=== PATIENT | female | born 1980 | race Caucasian/White ===

== ENCOUNTER 2017-08-24 09:17 | Emergency (ER) | payer OTHER ==
[2017-08-24 09:34] LABS: URINE HCG POC HCG NEGATIVE (Negative)
[2017-08-24 09:50] LABS: ADD MAN DIFF? NO
[2017-08-24 09:52] LABS: BASO # 0.1 x10^3/uL (0.0-0.2); BASO % 1 % (0-3); BILIRUBIN,URINE NEGATIVE (NEG); CLARITY,URINE CLEAR; COLOR,URINE YELLOW; EOS # 0.1 x10^3/uL (0.0-0.7); EOS % 1 % (0-3); GLUCOSE,URINE NEGATIVE (NEG); HEMATOCRIT 43.2 % (36.0-47.0); HEMOGLOBIN 14.2 g/dL (12.0-15.5); LYMPH # 1.9 x10^3/uL (1.0-4.8); LYMPH % 23 % (24-48); MEAN CORPUSCULAR HEMOGLOBIN 28 pg (25-35); MEAN CORPUSCULAR HGB CONC 33 g/dL (31-37); MEAN CORPUSCULAR VOLUME 84 fL (79-100); MONO # 0.4 x10^3/uL (0.0-1.1); MONO % 5 % (0-9); NEUT # 5.7 x10^3uL (1.8-7.7); NEUT % 70 % (31-73); NITRITE,URINE NEGATIVE (NEG); PH,URINE 6.5; PLATELET COUNT 355 x10^3/uL (140-400); PROTEIN,URINE NEGATIVE (NEG-TRACE); RED BLOOD COUNT 5.16 x10^6/uL (3.50-5.40); RED CELL DISTRIBUTION WIDTH 14.3 % (11.5-14.5); UROBILINOGEN,URINE 0.2 mg/dL (0.2 mg/dL); WHITE BLOOD COUNT 8.2 x10^3/uL (4.0-11.0)
[2017-08-24 10:01] LABS: ANION GAP 7 (6-14); BLOOD UREA NITROGEN 13 mg/dL (7-20); BUN/CREATININE RATIO 12 (6-20); CALCIUM 9.7 mg/dL (8.5-10.1); CARBON DIOXIDE 30 mmol/L (21-32); CHLORIDE 102 mmol/L (98-107); CREATININE 1.1 mg/dL (0.6-1.0); GFR 55.6; GLUCOSE 103 mg/dL (70-99); POTASSIUM 3.6 mmol/L (3.5-5.1); SODIUM 139 mmol/L (136-145)
[2017-08-24] MEDS: ONDANSETRON PF 4 MG/2 ML VIAL. IV (10:09)
[2017-08-24] MEDS: KETOROLAC 30 MG/ML INJ. IV (10:09)
[2017-08-24 10:12] LABS: ALK PHOS 80 U/L (46-116); ALT (SGPT) 29 U/L (14-59); AST (SGOT) 16 U/L (15-37); LIPASE 95 U/L (73-393); TOTAL BILIRUBIN 0.7 mg/dL (0.2-1.0); TOTAL PROTEIN 8.2 g/dL (6.4-8.2)
[2017-08-24 10:13] LABS: SQUAMOUS EPITHELIAL CELL,UR MOD /LPF
[2017-08-24 10:21] LABS: BACTERIA,URINE 0 /HPF (0-FEW); RBC,URINE 0 /HPF (0-2); WBC,URINE OCC /HPF (0-4)
== END 2017-08-24 11:15 | disposition home or self-care (01) ==
LOC: ER 09:17
DX: R10.11 Right upper quadrant pain (principal); R11.2 Nausea with vomiting, unspecified; R19.7 Diarrhea, unspecified; K21.9 Gastro-esophageal reflux disease without esophagitis; Z90.49 Acquired absence of other specified parts of digestive tract; Z90.711 Acquired absence of uterus with remaining cervical stump; Z88.5 Allergy status to narcotic agent
CPT/HCPCS: 36415; 74176; 80053; 81001; 81025; 83690; 85025; 96374; 96375; 99285-25; J1885; J2405

== ENCOUNTER 2017-08-30 11:37 | Inpatient (IN) | payer OTHER ==
[2017-08-30] MEDS: ONDANSETRON PF 4 MG/2 ML VIAL. IV ×2 (12:30→15:56)
[2017-08-30 12:33] LABS: ADD MAN DIFF? NO
[2017-08-30 12:36] LABS: BASO % 1 % (0-3); EOS # 0.1 x10^3/uL (0.0-0.7); EOS % 1 % (0-3); HEMATOCRIT 41.9 % (36.0-47.0); HEMOGLOBIN 13.9 g/dL (12.0-15.5); LYMPH # 1.8 x10^3/uL (1.0-4.8); LYMPH % 30 % (24-48); MEAN CORPUSCULAR HEMOGLOBIN 28 pg (25-35); MEAN CORPUSCULAR HGB CONC 33 g/dL (31-37); MEAN CORPUSCULAR VOLUME 84 fL (79-100); MONO # 0.4 x10^3/uL (0.0-1.1); MONO % 7 % (0-9); NEUT # 3.7 x10^3uL (1.8-7.7); NEUT % 61 % (31-73); PLATELET COUNT 335 x10^3/uL (140-400); RED BLOOD COUNT 5.01 x10^6/uL (3.50-5.40); RED CELL DISTRIBUTION WIDTH 14.5 % (11.5-14.5); WHITE BLOOD COUNT 6.1 x10^3/uL (4.0-11.0)
[2017-08-30 12:38] LABS: BILIRUBIN,URINE NEGATIVE (NEG); CLARITY,URINE CLEAR; COLOR,URINE YELLOW; GLUCOSE,URINE NEGATIVE (NEG); NITRITE,URINE NEGATIVE (NEG); PROTEIN,URINE NEGATIVE (NEG-TRACE); UROBILINOGEN,URINE 0.2 mg/dL (0.2 mg/dL)
[2017-08-30 12:44] LABS: ANION GAP 10 (6-14); BLOOD UREA NITROGEN 11 mg/dL (7-20); BUN/CREATININE RATIO 10 (6-20); CALCIUM 9.6 mg/dL (8.5-10.1); CARBON DIOXIDE 30 mmol/L (21-32); CHLORIDE 102 mmol/L (98-107); CREATININE 1.1 mg/dL (0.6-1.0); GFR 55.6; GLUCOSE 102 mg/dL (70-99); POTASSIUM 4.1 mmol/L (3.5-5.1); SODIUM 142 mmol/L (136-145)
[2017-08-30 12:50] LABS: ALBUMIN 3.8 g/dL (3.4-5.0); ALK PHOS 73 U/L (46-116); ALT (SGPT) 27 U/L (14-59); AST (SGOT) 16 U/L (15-37); LIPASE 95 U/L (73-393); TOTAL BILIRUBIN 0.4 mg/dL (0.2-1.0); TOTAL PROTEIN 7.7 g/dL (6.4-8.2)
[2017-08-30 13:03] LABS: BACTERIA,URINE FEW /HPF (0-FEW); RBC,URINE RARE /HPF (0-2); SQUAMOUS EPITHELIAL CELL,UR MOD /LPF; WBC,URINE 0 /HPF (0-4)
[2017-08-30] MEDS: IV NORMAL SALINE 1000ML BAG 1,000 ML IV ×2 (13:06→16:02)
[2017-08-30] MEDS: HALOPERIDOL LACTATE 5 MG/ML VIAL. IVP (13:06)
[2017-08-30] MEDS: FAMOTIDINE 20 MG/2 ML VIAL IVP (13:06)
[2017-08-30] MEDS: diphenhydrAMINE 50 MG/ML VIAL IVP (13:07)
[2017-08-30] MEDS ORDERED: ACETAMINOPHEN 325 MG TABLET. PO (14:30)
[2017-08-30] MEDS: PANTOPRAZOLE 40 MG TABLET.DR. PO (15:56)
[2017-08-30] MEDS: fentaNYL PF VIAL 100 MCG/2 ML VIAL IV ×3 (15:57→22:42)
[2017-08-30] MEDS: DICYCLOMINE HCL 10 MG CAPSULE PO (17:38)
[2017-08-30] MEDS: oxyCODONE/APAP 5/325 1 TAB TABLET PO ×2 (17:38→22:43)
[2017-08-30] MEDS: tiZANidine 4 MG TABLET. PO (19:34)
[2017-08-30] MEDS ORDERED: NON FORMULARY ITEM (Melatonin 1 TAB) PO (21:00)
[2017-08-30] MEDS: POLYETHYLENE GLYCOL 3350 17 GM PACKET. PO (21:00)
[2017-08-30] MEDS: traZODone 50 MG TABLET. PO (22:43)
[2017-08-31] MEDS: IV NORMAL SALINE 1000ML BAG 1,000 ML IV ×2 (03:33→16:34)
[2017-08-31 06:00] LABS: ADD MAN DIFF? NO
[2017-08-31 06:10] LABS: BASO % 1 % (0-3); EOS # 0.1 x10^3/uL (0.0-0.7); EOS % 2 % (0-3); HEMATOCRIT 38.5 % (36.0-47.0); HEMOGLOBIN 12.6 g/dL (12.0-15.5); LYMPH # 2.2 x10^3/uL (1.0-4.8); LYMPH % 42 % (24-48); MEAN CORPUSCULAR HEMOGLOBIN 28 pg (25-35); MEAN CORPUSCULAR HGB CONC 33 g/dL (31-37); MEAN CORPUSCULAR VOLUME 84 fL (79-100); MONO # 0.5 x10^3/uL (0.0-1.1); MONO % 9 % (0-9); NEUT # 2.4 x10^3uL (1.8-7.7); NEUT % 46 % (31-73); PLATELET COUNT 269 x10^3/uL (140-400); RED BLOOD COUNT 4.57 x10^6/uL (3.50-5.40); RED CELL DISTRIBUTION WIDTH 14.7 % (11.5-14.5); WHITE BLOOD COUNT 5.3 x10^3/uL (4.0-11.0)
[2017-08-31 06:26] LABS: ANION GAP 6 (6-14); BLOOD UREA NITROGEN 9 mg/dL (7-20); CALCIUM 8.7 mg/dL (8.5-10.1); CARBON DIOXIDE 30 mmol/L (21-32); CHLORIDE 107 mmol/L (98-107); CREATININE 1.1 mg/dL (0.6-1.0); GFR 55.6; GLUCOSE 90 mg/dL (70-99); SODIUM 143 mmol/L (136-145)
[2017-08-31] MEDS: fentaNYL PF VIAL 100 MCG/2 ML VIAL IV ×3 (07:48→22:50)
[2017-08-31] MEDS: SINCALIDE 1.72 MCG in IV NORMAL SALINE 50ML 30 ML IV (08:15)
[2017-08-31] MEDS ORDERED: ONDANSETRON PF 4 MG/2 ML VIAL. IV (08:30)
[2017-08-31] MEDS ORDERED: ACETAMINOPHEN 500 MG TABLET PO (08:30)
[2017-08-31] MEDS: POLYETHYLENE GLYCOL 3350 17 GM PACKET. PO ×2 (09:00→20:51)
[2017-08-31] MEDS: PANTOPRAZOLE 40 MG TABLET.DR. PO (10:24)
[2017-08-31] MEDS: SERTRALINE 50 MG TABLET. PO (10:24)
[2017-08-31] MEDS: oxyCODONE/APAP 5/325 1 TAB TABLET PO ×3 (10:34→20:50)
[2017-08-31] MEDS: DICYCLOMINE HCL 10 MG CAPSULE PO ×2 (13:23→20:50)
[2017-08-31] MEDS: traZODone 50 MG TABLET. PO (20:50)
[2017-08-31] MEDS: tiZANidine 4 MG TABLET. PO (22:28)
[2017-09-01] MEDS: fentaNYL PF VIAL 100 MCG/2 ML VIAL IV ×9 (05:29→23:15)
[2017-09-01] MEDS: PANTOPRAZOLE 40 MG TABLET.DR. PO (07:30)
[2017-09-01] MEDS: SERTRALINE 50 MG TABLET. PO (09:00)
[2017-09-01] MEDS: POLYETHYLENE GLYCOL 3350 17 GM PACKET. PO ×2 (09:00→21:00)
[2017-09-01] MEDS ORDERED: LIDOCAINE 1% PF 2 ML VIAL. ID (11:30)
[2017-09-01] MEDS ORDERED: fentaNYL PF VIAL 100 MCG/2 ML VIAL IV (11:30)
[2017-09-01] MEDS ORDERED: ONDANSETRON PF 4 MG/2 ML VIAL. IV ×2 (11:30→14:45)
[2017-09-01] MEDS ORDERED: GLUCAGON,HUMAN RECOMBINANT 1 MG/ML VIAL. (12:14)
[2017-09-01] MEDS ORDERED: SURGICEL HEMOSTAT 4X8 EACH. (12:14)
[2017-09-01] MEDS ORDERED: PROPOFOL 20 ML IV (12:25)
[2017-09-01] MEDS ORDERED: ROCURONIUM 50 MG/5 ML VIAL. (12:25)
[2017-09-01] MEDS ORDERED: DEXAMETHASONE SOD PHOS 20 MG/5 ML VIAL. (12:26)
[2017-09-01] MEDS ORDERED: ONDANSETRON PF 4 MG/2 ML VIAL. (12:26)
[2017-09-01] MEDS ORDERED: NEOSTIGMINE 10 MG/10 ML VIAL. (12:26)
[2017-09-01] MEDS ORDERED: fentaNYL PF VIAL 100 MCG/2 ML VIAL ×2 (12:27→13:53)
[2017-09-01] MEDS ORDERED: GLYCOPYRROLATE 1 MG/5 ML VIAL. (12:27)
[2017-09-01] MEDS ORDERED: MIDAZOLAM HCL/PF 2 MG/2 ML VIAL. (12:28)
[2017-09-01] MEDS: BUPIVAC MPF-EPI 0.5%-1:200000 30 ML VIAL. INJ (13:44)
[2017-09-01] MEDS: IOHEXOL 300 MG/ML 100ML VIAL. (13:44)
[2017-09-01] MEDS ORDERED: KETOROLAC 30 MG/ML INJ FOR OR. INJ (14:23)
[2017-09-01] MEDS ORDERED: 0.9 % SODIUM CHLORIDE 10 ML DISP.SYRIN. IV (14:45)
[2017-09-01] MEDS ORDERED: MORPHINE SULFATE 2 MG/ML DISP.SYRIN. IV (14:45)
[2017-09-01] MEDS ORDERED: DEXTROSE 50% 25 GM / 50ML DISP.SYRIN. IV (14:45)
[2017-09-01] MEDS: ENOXAPARIN 40 MG/0.4 ML SYRINGE. SQ (14:45)
[2017-09-01] MEDS ORDERED: oxyCODONE/APAP 5/325 1 TAB TABLET PO (14:45)
[2017-09-01] MEDS ORDERED: diphenhydrAMINE HCL 25 MG CAPSULE PO (14:45)
[2017-09-01] MEDS ORDERED: diphenhydrAMINE 50 MG/ML VIAL IV (14:45)
[2017-09-01] MEDS: IV RINGERS,LACTATED 1000ML 1,000 ML IV (15:00)
[2017-09-01] MEDS: PROCHLORPERAZINE 10 MG/2 ML VIAL. IV ×2 (15:02→15:46)
[2017-09-01] MEDS: DOCUSATE SODIUM 100 MG CAPSULE. PO (21:00)
[2017-09-01] MEDS: traZODone 50 MG TABLET. PO (21:14)
[2017-09-01] MEDS: POTASSIUM CL 20MEQ-0.45% NACL 1,000 ML IV ×2 (21:15→21:17)
[2017-09-02] MEDS: fentaNYL PF VIAL 100 MCG/2 ML VIAL IV ×2 (01:24→06:37)
[2017-09-02] MEDS: DICYCLOMINE HCL 10 MG CAPSULE PO (01:27)
[2017-09-02] MEDS: tiZANidine 4 MG TABLET. PO (01:27)
[2017-09-02] MEDS: oxyCODONE/APAP 5/325 1 TAB TABLET PO ×2 (01:27→08:09)
[2017-09-02 06:10] LABS: ADD MAN DIFF? NO
[2017-09-02 06:29] LABS: BASO % 0 % (0-3); EOS % 0 % (0-3); HEMATOCRIT 36.1 % (36.0-47.0); HEMOGLOBIN 12.1 g/dL (12.0-15.5); LYMPH # 1.2 x10^3/uL (1.0-4.8); LYMPH % 13 % (24-48); MEAN CORPUSCULAR HEMOGLOBIN 28 pg (25-35); MEAN CORPUSCULAR HGB CONC 34 g/dL (31-37); MEAN CORPUSCULAR VOLUME 84 fL (79-100); MONO # 0.6 x10^3/uL (0.0-1.1); MONO % 7 % (0-9); NEUT # 7.6 x10^3uL (1.8-7.7); NEUT % 80 % (31-73); PLATELET COUNT 256 x10^3/uL (140-400); RED BLOOD COUNT 4.32 x10^6/uL (3.50-5.40); RED CELL DISTRIBUTION WIDTH 14.2 % (11.5-14.5); WHITE BLOOD COUNT 9.4 x10^3/uL (4.0-11.0)
[2017-09-02 06:35] LABS: ANION GAP 6 (6-14); BLOOD UREA NITROGEN 7 mg/dL (7-20); CALCIUM 9.2 mg/dL (8.5-10.1); CARBON DIOXIDE 31 mmol/L (21-32); CHLORIDE 104 mmol/L (98-107); GFR 62.1; GLUCOSE 110 mg/dL (70-99); SODIUM 141 mmol/L (136-145)
[2017-09-02] MEDS: DOCUSATE SODIUM 100 MG CAPSULE. PO (08:22)
[2017-09-02] MEDS: SERTRALINE 50 MG TABLET. PO (08:23)
[2017-09-02] MEDS: PANTOPRAZOLE 40 MG TABLET.DR. PO (08:23)
[2017-09-02] MEDS: POLYETHYLENE GLYCOL 3350 17 GM PACKET. PO (08:25)
[2017-09-02] MEDS: POTASSIUM CL 20MEQ-0.45% NACL 1,000 ML IV (10:29)
[2017-09-02] MEDS: HYDROcodone/APAP 7.5/325MG 1 TAB TABLET PO (10:37)
[2017-09-02] MEDS ORDERED: oxyCODONE/APAP 5/325 1 TAB TABLET PO (10:45)
== END 2017-09-02 12:10 | disposition home or self-care (01) | DRG 419 ==
LOC: ER 11:37 → 5 SOUTH 14:20
PROC: 0FT44ZZ Resection of Gallbladder, Percutaneous Endoscopic Approach (ICD-10-PCS; principal; 2017-09-01 12:30)
PROC: BF101ZZ Fluoroscopy of Bile Ducts using Low Osmolar Contrast (ICD-10-PCS; 2017-09-01 12:30)
DX: K82.8 Other specified diseases of gallbladder (principal); E78.5 Hyperlipidemia, unspecified; F41.9 Anxiety disorder, unspecified; G89.29 Other chronic pain; Z82.49 Family history of ischemic heart disease and other diseases of the circulatory system; Z87.11 Personal history of peptic ulcer disease; Z88.5 Allergy status to narcotic agent; K21.9 Gastro-esophageal reflux disease without esophagitis; Z90.710 Acquired absence of both cervix and uterus; Z90.721 Acquired absence of ovaries, unilateral
CPT/HCPCS: 36415; 74300; 76700; 78226; 80048; 80053; 81001; 83690; 85025; 88304; 96361; 96374; 96375; 99285-25; A9537; C1769; J0690; J0780; J1100; J1200; J1610; J1630; J1885; J2250; J2405; J2704; J2710; J2805; J3010; J3490; J7030; J7120; Q9967; S0028

== ENCOUNTER 2018-01-23 00:20 | Inpatient (IN) | payer OTHER ==
[~2018-01-23] VITALS: Ht 162.6 cm; Wt 89.4 kg
[~2018-01-23 00:20] MED LIST: DICY10CA3 PO; ESTR1TAB15 PO; HYDR-2762 PO; MELA3TAB2 PO; PANT40TA3 PO; POLY17PO29 PO; SERT100T PO; TIZA4CAP3 PO; TRAZ-85 PO
[2018-01-23] MEDS ORDERED: fentaNYL PF VIAL 100 MCG/2 ML VIAL IV ONE ×3 (01:00→03:30)
--- NOTE | 2018-01-23 01:04 | PHYS DOC ---
Past Medical History Past Medical History: Anxiety, GERD Additional Past Medical Histor: "panic attacks" Past Surgical History: Appendectomy, Hysterectomy, Tonsillectomy Additional Past Surgical Histo: PARTIAL HYSTERECTOMY FROM LARGE CYST, ECTOPIC PG Alcohol Use: Occasionally Drug Use: None Adult General Chief Complaint Chief Complaint: CHEST PAIN HPI HPI Patient is a 37 year old female who presents with chest pain. Patient states she has been having chest pain which is primarily substernal over the last 2 days. Pain has been a dull achy sensation but intermittently becomes more sharp. Pain is mostly been constant. It does not radiate. She has not identified any aggravating or alleviating factors. Of note, the patient did recently travel back from [place] when she spent 14 hours and a car. The patient does have significant family history. Her father had his first heart attack at the age of 38. She reports that he has multiple stents. She has not been ill. No fever, chills, cough. She does not have pain in the lower legs. Review of Systems Review of Systems Constitutional: Denies fever or chills Eyes: Denies change in visual acuity HENT: Denies nasal congestion Respiratory: Denies cough or shortness of breath Cardiovascular: No additional information not addressed in HPI GI: Denies abdominal pain. + some diarrhea : Denies dysuria or hematuria Musculoskeletal: Denies back pain or joint pain Integument: Denies rash or skin lesions Neurologic: Denies headache All other systems were reviewed and found to be within normal limits, except as documented in this note. Current Medications Current Medications Current Medications Medications (Trade) Dose Ordered Sig/Juaquin Start Time Stop Time Status Last Admin Dose Admin Acetaminophen (Tylenol) 650 mg PRN Q4HRS PRN 01/23/18 03:30 01/24/18 03:29 UNV Diphenhydramine HCl (Benadryl) 25 mg 1X ONCE 01/23/18 02:15 01/23/18 02:57 DC 01/23/18 02:15 25 MG Fentanyl Citrate (Fentanyl 2ml Vial) 75 mcg PRN Q2HR PRN 01/23/18 03:30 01/24/18 03:29 UNV Info (CONTRAST GIVEN -- Rx MONITORING) 1 each PRN DAILY PRN 01/23/18 02:15 01/25/18 02:14 Iohexol (Omnipaque 300 Mg/ml) 75 ml 1X ONCE 01/23/18 02:15 01/23/18 02:16 DC Ketorolac Tromethamine (Toradol) 30 mg 1X ONCE 01/23/18 03:15 01/23/18 03:16 DC 01/23/18 03:13 30 MG Ondansetron HCl (Zofran) 4 mg PRN Q8HRS PRN 01/23/18 03:30 01/24/18 03:29 UNV Oxycodone HCl (Roxicodone) 10 mg Q6H PRN 01/23/18 03:45 UNV Sodium Chloride 1,000 ml @ 1,000 mls/hr 1X ONCE 01/23/18 01:30 01/23/18 02:29 DC 01/23/18 01:30 1,000 MLS/HR Allergies Allergies Allergies Coded Allergies Type Severity Reaction Last Updated Verified morphine Allergy Severe Shortness of Air 01/25/16 Yes Physical Exam Physical Exam Constitutional: Well developed, well nourished, no acute distress, non-toxic appearance HENT: Normocephalic, atraumatic, bilateral external ears normal, oropharynx moist Eyes: PERRLA Neck: Normal range of motion, no tenderness, supple, no stridor Cardiovascular:Heart rate regular rhythm, no murmur Lungs & Thorax: Bilateral breath sounds clear to auscultation Abdomen: Bowel sounds normal, soft, no tenderness Skin: Warm, dry Extremities: No tenderness of the calf muscles. no swelling Neurologic: Alert and oriented X 3 Psychologic: Affect normal Current Patient Data Vital Signs Vital Signs Date Time Temp Pulse Resp B/P (MAP) Pulse Ox O2 Delivery O2 Flow Rate FiO2 01/23/18 03:00 62 18 103/57 (72) 97 01/23/18 00:37 98.7 Room Air 98.7 Lab Values Laboratory Tests Test 01/23/18 01:00 White Blood Count 7.3 x10^3/uL (4.0-11.0) Red Blood Count 4.85 x10^6/uL (3.50-5.40) Hemoglobin 13.5 g/dL (12.0-15.5) Hematocrit 40.2 % (36.0-47.0) Mean Corpuscular Volume 83 fL (79-100) Mean Corpuscular Hemoglobin 28 pg (25-35) Mean Corpuscular Hemoglobin Concent 34 g/dL (31-37) Red Cell Distribution Width 13.6 % (11.5-14.5) Platelet Count 336 x10^3/uL (140-400) Neutrophils (%) (Auto) 57 % (31-73) Lymphocytes (%) (Auto) 32 % (24-48) Monocytes (%) (Auto) 7 % (0-9) Eosinophils (%) (Auto) 3 % (0-3) Basophils (%) (Auto) 1 % (0-3) Neutrophils # (Auto) 4.2 x10^3uL (1.8-7.7) Lymphocytes # (Auto) 2.4 x10^3/uL (1.0-4.8) Monocytes # (Auto) 0.5 x10^3/uL (0.0-1.1) Eosinophils # (Auto) 0.2 x10^3/uL (0.0-0.7) Basophils # (Auto) 0.1 x10^3/uL (0.0-0.2) Prothrombin Time 12.5 SEC (11.7-14.0) Prothrombin Time INR 1.0 (0.8-1.1) PTT 30 SEC (24-38) D-Dimer (Luz) < 0.27 ug/mlFEU Sodium Level 138 mmol/L (136-145) Potassium Level 3.9 mmol/L (3.5-5.1) Chloride Level 102 mmol/L (98-107) Carbon Dioxide Level 30 mmol/L (21-32) Anion Gap 6 (6-14) Blood Urea Nitrogen 13 mg/dL (7-20) Creatinine 1.0 mg/dL (0.6-1.0) Estimated GFR (Cockcroft-Gault) 62.1 Glucose Level 109 mg/dL (70-99) H Calcium Level 9.2 mg/dL (8.5-10.1) Troponin I Quantitative < 0.017 ng/mL (0.000-0.055) Laboratory Tests 01/23/18 01:00 Laboratory Tests 01/23/18 01:00 EKG EKG No STEMI Interpretation Time: 00:35 Radiology/Procedures Radiology/Procedures CTA chest: no acute findings Course & Med Decision Making Course & Med Decision Making Pertinent Labs and Imaging studies reviewed. (See chart for details) 00:50: Patient is seen and examined. + significant family history. Standard ACS workup is ordered plus dimer given her recent travel history. Allergy to morphine (difficulty breathing). Fentanyl is ordered. 03:30: All results are reviewed and discussed with the patient and her significant other and all of their questions are answered. There are no acute findings on the workup tonight. Her d-dimer was not elevated. She had already gone for CT angiogram which did not reveal an acute cause for her symptoms. EKG is nonacute. Despite multiple doses of opiate pain medications, the patient continued to clutch her chest throughout the ED course. Her father suffered his first cardiac event at her current age. Her pain does not seem cardiac in nature but also was not reproducible upon palpation of the chest wall. Plan this evening is to admit the patient to rule out. Bridge orders are placed. Orders for cardiology consultation are also placed. The patient does have a history of using smokeless tobacco products. Other than her family history, she has no significant CAD risk factors. Patient is agreeable to the plan of care including admission. Chema Disclaimer Dragon Disclaimer This electronic medical record was generated, in whole or in part, using a voice recognition dictation system. Departure Departure Referrals: NO PCP (PCP) ERNESTINA IGLESIAS DO Jan 23, 2018 01:04
[2018-01-23 01:15] LABS: BASO # 0.1 x10^3/uL (0.0-0.2); BASO % 1 % (0-3); EOS # 0.2 x10^3/uL (0.0-0.7); EOS % 3 % (0-3); HEMATOCRIT 40.2 % (36.0-47.0); HEMOGLOBIN 13.5 g/dL (12.0-15.5); LYMPH # 2.4 x10^3/uL (1.0-4.8); LYMPH % 32 % (24-48); MEAN CORPUSCULAR HEMOGLOBIN 28 pg (25-35); MEAN CORPUSCULAR HGB CONC 34 g/dL (31-37); MEAN CORPUSCULAR VOLUME 83 fL (79-100); MONO # 0.5 x10^3/uL (0.0-1.1); MONO % 7 % (0-9); NEUT # 4.2 x10^3uL (1.8-7.7); NEUT % 57 % (31-73); PLATELET COUNT 336 x10^3/uL (140-400); RED BLOOD COUNT 4.85 x10^6/uL (3.50-5.40); RED CELL DISTRIBUTION WIDTH 13.6 % (11.5-14.5); WHITE BLOOD COUNT 7.3 x10^3/uL (4.0-11.0)
[2018-01-23 01:23] LABS: PARTIAL THROMBOPLASTIN TIME 30 SEC (24-38); PROTHROMBIN TIME PATIENT 12.5 SEC (11.7-14.0)
[2018-01-23 01:26] LABS: CALCIUM 9.2 mg/dL (8.5-10.1); GFR 62.1; POTASSIUM 3.9 mmol/L (3.5-5.1)
[2018-01-23] MEDS ORDERED: IV NORMAL SALINE 1000ML BAG 1,000 ML IV ONE (01:30)
[2018-01-23 01:31] LABS: D-DIMER < 0.27 ug/mlFEU (0.00-0.50)
[2018-01-23] MEDS ORDERED: diphenhydrAMINE 50 MG/ML VIAL IVP ONE ×2 (02:15→05:00)
[2018-01-23] MEDS ORDERED: CONTRAST GIVEN. MC PRN (02:15)
[2018-01-23] MEDS ORDERED: IOHEXOL 300 MG/ML 100ML VIAL. IV ONE (02:15)
[2018-01-23] MEDS ORDERED: KETOROLAC 30 MG/ML VIAL. IV ONE (03:15)
--- NOTE | 2018-01-23 03:30 | RAD ---
CTA chest with contrast 01/23/2018 Clinical indication: Chest pain. COMPARISON: CTA chest 06/15/2017 TECHNIQUE: Multiple CTA images of the chest were obtained following the intravenous and ministration of 75 mL Omnipaque 300. MIPS were obtained of the chest. *One or more of the following individualized dose reduction techniques were utilized for this examination: 1. Automated exposure control. 2. Adjustment of the mA and/or kV according to patient size. 3. Use of iterative reconstruction technique. FINDINGS: Heart size is normal without significant pericardial effusion. The thoracic aorta is normal in caliber. No central or major segmental pulmonary arterial filling defect. No axillary, mediastinal or hilar lymphadenopathy. The central airways are patent. No pleural effusion, pneumothorax or focal consolidation. There are no destructive osseous lesions. Limited images of the upper abdomen: Cholecystectomy. IMPRESSION: No CT evidence of pulmonary embolism. Electronically signed by: Laurent Gallagher MD (01/23/2018 3:26 AM) [facility]
[2018-01-23] MEDS ORDERED: ONDANSETRON PF 4 MG/2 ML VIAL. IV PRN (03:45)
[2018-01-23] MEDS ORDERED: ACETAMINOPHEN 325 MG TABLET. PO PRN (03:45)
[2018-01-23] MEDS: oxyCODONE IR 5 MG TABLET PO PRN ×3 (04:57→17:44)
--- NOTE | 2018-01-23 06:10 | EKG ---
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
[2018-01-23] MEDS ORDERED: IOHEXOL 300 MG/ML 100ML VIAL. ONE (06:46)
[2018-01-23 07:00] VITALS: BP 102/52
[2018-01-23] MEDS: fentaNYL PF VIAL 100 MCG/2 ML VIAL IV PRN ×5 (07:35→22:27)
--- NOTE | 2018-01-23 09:34 | PDOC2 ---
[facility] CONTACT C[facility] ANALYST 01/23/18 0934: CARDIAC CONSULT DATE OF CONSULT Date of Consult DATE: 01/23/18 TIME: 09:28 REASON FOR CONSULT Reason for Consult: intractable CP, family hx REFERRING PHYSICIAN Referring Physician: Isaac SOURCE Source: Chart review, Patient HISTORY OF PRESENT ILLNESS HISTORY OF PRESENT ILLNESS This is a pleasant 37 yo female admitted for complains of chest pain. Reports that she started having this yesterday at rest. It was the left chest with pressure then sharp. This was associated with nausea and was unable to take a deep breath because of the pain. Reports no LEE or exertional CP prior to this event. No recent falls or injury. No frequent NSAID use. She did not take any analgesic to relieve this discomfort. Reports that prior to this happening she was actually having sharp pain under her left lower rib cage for 2 days which is no absent. Denies any palpitations, dizziness. She also has been having bifrontal throbbing HAs lately and last night she had an episode where she had left facial numbness, tingling and slurred speech and sensation that her left facial side was sagging and also felt weakness to her left hand. This lasted about 20 minutes. No prior hx of CVA, AVM, clotting disorders or arrhythmias. She does have hx of anxiety with panic attacks but reported that this is controlled with her cymbalata and she takes protonix for her GERD. PAST MEDICAL HISTORY Past Medical History Cardiovascular: No pertinent hx Pulmonary: No pertinent hx GI: GERD Heme/Onc: No pertinent hx Hepatobiliary: No pertinent hx Psych: Anxiety Rheumatologic: No pertinent hx Infectious disease: No pertinent hx ENT: No pertinent hx Renal/: No pertinent hx Endocrine: No pertinent hx Dermatology: No pertinent hx PAST SURGICAL HISTORY Past Surgical History Cholecystectomy, Appendectomy, Tonsillectomy, Hysterectomy FAMILY HISTORY Family History Coronary Artery Disease (father- [place] at age 35, multiple stents), Hypertension SOCIAL HISTORY Social History Smoke: No ALCOHOL: none Drugs: None Lives: with Family CURRENT MEDICATIONS CURRENT MEDICATIONS Current Medications Medications (Trade) Dose Ordered Sig/Juaquin Route PRN Reason Start Time Stop Time Status Last Admin Dose Admin Fentanyl Citrate (Fentanyl 2ml Vial) 75 mcg 1X ONCE IV 01/23/18 01:00 01/23/18 01:01 DC 01/23/18 01:05 Sodium Chloride 1,000 ml @ 1,000 mls/hr 1X ONCE IV 01/23/18 01:30 01/23/18 02:29 DC 01/23/18 01:30 Fentanyl Citrate (Fentanyl 2ml Vial) 75 mcg 1X ONCE IV 01/23/18 02:00 01/23/18 02:01 DC 01/23/18 02:00 Diphenhydramine HCl (Benadryl) 25 mg 1X ONCE IVP 01/23/18 02:15 01/23/18 02:57 DC 01/23/18 02:15 Ketorolac Tromethamine (Toradol) 30 mg 1X ONCE IV 01/23/18 03:15 01/23/18 03:16 DC 01/23/18 03:13 Fentanyl Citrate (Fentanyl 2ml Vial) 75 mcg 1X ONCE IV 01/23/18 03:30 01/23/18 03:31 DC 01/23/18 03:41 Ondansetron HCl (Zofran) 4 mg PRN Q8HRS PRN IV NAUSEA/VOMITING 01/23/18 03:45 01/24/18 03:44 01/23/18 07:41 Fentanyl Citrate (Fentanyl 2ml Vial) 75 mcg PRN Q2HR PRN IV pain unrelieved by other meds 01/23/18 03:45 01/24/18 03:44 01/23/18 07:35 Oxycodone HCl (Roxicodone) 10 mg PRN Q6HRS PRN PO pain not relieved by tylenol 01/23/18 03:45 01/23/18 04:57 Diphenhydramine HCl (Benadryl) 25 mg 1X ONCE IVP 01/23/18 05:00 01/23/18 05:01 DC 01/23/18 04:57 ALLERGIES ALLERGIES: Coded Allergies: morphine (Verified Allergy, Severe, Shortness of Air, 01/25/16) ROS Review of System 14 point ROS evaluated with pertinent positives noted per HPI PHYSICAL EXAM General: Alert, Oriented X3, Cooperative, No acute distress HEENT: Atraumatic, Mucous membr. moist/pink Lungs: Clear to auscultation, Normal air movement Heart: Regular rate (SR), Normal S1, Normal S2 Abdomen: Soft, No tenderness Extremities: No cyanosis, No edema Skin: No breakdown, No significant lesion Neuro: Normal speech, Sensation intact Psych/Mental Status: Mental status NL, Mood NL MUSCULOSKELETAL: Full range of motion without pain VITALS VITALS Vital Signs Date Time Temp Pulse Resp B/P (MAP) Pulse Ox O2 Delivery O2 Flow Rate FiO2 01/23/18 07:35 19 Room Air 01/23/18 07:00 96.6 61 102/52 (69) 100 96.6 LABS Lab: Laboratory Tests Test 01/23/18 01:00 White Blood Count 7.3 x10^3/uL (4.0-11.0) Red Blood Count 4.85 x10^6/uL (3.50-5.40) Hemoglobin 13.5 g/dL (12.0-15.5) Hematocrit 40.2 % (36.0-47.0) Mean Corpuscular Volume 83 fL (79-100) Mean Corpuscular Hemoglobin 28 pg (25-35) Mean Corpuscular Hemoglobin Concent 34 g/dL (31-37) Red Cell Distribution Width 13.6 % (11.5-14.5) Platelet Count 336 x10^3/uL (140-400) Neutrophils (%) (Auto) 57 % (31-73) Lymphocytes (%) (Auto) 32 % (24-48) Monocytes (%) (Auto) 7 % (0-9) Eosinophils (%) (Auto) 3 % (0-3) Basophils (%) (Auto) 1 % (0-3) Neutrophils # (Auto) 4.2 x10^3uL (1.8-7.7) Lymphocytes # (Auto) 2.4 x10^3/uL (1.0-4.8) Monocytes # (Auto) 0.5 x10^3/uL (0.0-1.1) Eosinophils # (Auto) 0.2 x10^3/uL (0.0-0.7) Basophils # (Auto) 0.1 x10^3/uL (0.0-0.2) Prothrombin Time 12.5 SEC (11.7-14.0) Prothromb Time International Ratio 1.0 (0.8-1.1) Activated Partial Thromboplast Time 30 SEC (24-38) D-Dimer (Luz) < 0.27 ug/mlFEU Sodium Level 138 mmol/L (136-145) Potassium Level 3.9 mmol/L (3.5-5.1) Chloride Level 102 mmol/L (98-107) Carbon Dioxide Level 30 mmol/L (21-32) Anion Gap 6 (6-14) Blood Urea Nitrogen 13 mg/dL (7-20) Creatinine 1.0 mg/dL (0.6-1.0) Estimated GFR (Cockcroft-Gault) 62.1 Glucose Level 109 mg/dL (70-99) Calcium Level 9.2 mg/dL (8.5-10.1) Troponin I Quantitative < 0.017 ng/mL (0.000-0.055) ECHOCARDIOGRAM ECHOCARDIOGRAM <Conclusion> The left ventricular systolic function is normal. The ejection fraction is estimated at 60-65%. There is normal LV segmental wall motion. Doppler and Color Flow revealed trace to mild tricuspid regurgitation. There is no evidence of significant pericardial effusion. DATE: 06/16/17 1626 ASSESSMENT/PLAN ASSESSMENT/PLAN 1. Atypical chest pain: troponin series nml and EKG SR without acute changes. Doubt ACS. Suspect MSK. 2. TIA symptoms vs migraine aura: resolved. 20 min episode last night 3. GERD: on PPI 4. Anxiety with hx of panic attacks: controlled per pt 5. Family hx of premature CAD: father [place] at 38 6. HLP 7. Obesity 8. Metabolic syndrome Recommendations 1. Consult neurology. CT head 2. Stress echo today if CT is unremarkable.given her significant cardiac risk factors. 3. Dietitian consult. CONNOR NICHOLS MD 01/23/18 2300: CARDIAC CONSULT ASSESSMENT/PLAN ASSESSMENT/PLAN Pt. seen and examined. 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 No acute cardiac abn on exam. Echo wnl. Normal ekg. further w/u per neurology. Ok to DC from CV standpoint. thanks SAE SINHA APRN Jan 23, 2018 09:34 CONNOR NICHOLS MD Jan 23, 2018 23:00
[2018-01-23 10:06] LABS: CHOLESTEROL/HDL RATIO 3.5
--- NOTE | 2018-01-23 10:29 | PDOC1 ---
History and Physical Date of Admission Date of Admission DATE: 01/23/18 TIME: 10:28 Identification/Chief Complaint Chief Complaint CC left chest with pressure , sharp. associated with nausea and was unable to take a deep breath because of the pain. no LEE or exertional CP prior to this event. No recent falls or injury. Past Medical History Past Medical History PAST MEDICAL HISTORY Past Medical History Cardiovascular: No pertinent hx Pulmonary: No pertinent hx GI: GERD Heme/Onc: No pertinent hx Hepatobiliary: No pertinent hx Psych: Anxiety Rheumatologic: No pertinent hx Infectious disease: No pertinent hx ENT: No pertinent hx Renal/: No pertinent hx Endocrine: No pertinent hx Dermatology: No pertinent hx PAST SURGICAL HISTORY Past Surgical History Cholecystectomy, Appendectomy, Tonsillectomy, Hysterectomy FAMILY HISTORY Family History Coronary Artery Disease (father- CT at age 35, multiple stents), Hypertension SOCIAL HISTORY Social History Smoke: No ALCOHOL: none Drugs: None Lives: with Family Cardiovascular: No pertinent hx Pulmonary: No pertinent hx GI: GERD Heme/Onc: No pertinent hx Hepatobiliary: No pertinent hx Psych: Anxiety Rheumatologic: No pertinent hx Infectious disease: No pertinent hx Renal/: No pertinent hx Endocrine: No pertinent hx Past Surgical History Past Surgical History: Appendectomy, Tonsillectomy, Hysterectomy Family History Family History: Coronary Artery Disease, High Cholestrol, Hypertension Family History: Parent Social History Smoke: Quit ALCOHOL: none Drugs: None Current Problem List Problem List Problems Medical Problems: (1) Other chest pain Status: Acute Current Medications Current Medications Current Medications Fentanyl Citrate (Fentanyl 2ml Vial) 75 mcg 1X ONCE IV Last administered on at 01:05; Start 01/23/18 at 01:00; Stop 01/23/18 at 01:01; Status DC Sodium Chloride 1,000 ml @ 1,000 mls/hr 1X ONCE IV Last administered on at 01:30; Start 01/23/18 at 01:30; Stop 01/23/18 at 02:29; Status DC Fentanyl Citrate (Fentanyl 2ml Vial) 75 mcg 1X ONCE IV Last administered on at 02:00; Start 01/23/18 at 02:00; Stop 01/23/18 at 02:01; Status DC Iohexol (Omnipaque 300 Mg/ml) 75 ml 1X ONCE IV ; Start 01/23/18 at 02:15; Stop 01/23/18 at 02:16; Status DC Info (CONTRAST GIVEN -- Rx MONITORING) 1 each PRN DAILY PRN MC SEE COMMENTS; Start 01/23/18 at 02:15; Stop 01/25/18 at 02:14 Diphenhydramine HCl (Benadryl) 25 mg 1X ONCE IVP Last administered on at 02:15; Start 01/23/18 at 02:15; Stop 01/23/18 at 02:57; Status DC Ketorolac Tromethamine (Toradol) 30 mg 1X ONCE IV Last administered on at 03:13; Start 01/23/18 at 03:15; Stop 01/23/18 at 03:16; Status DC Fentanyl Citrate (Fentanyl 2ml Vial) 75 mcg 1X ONCE IV Last administered on at 03:41; Start 01/23/18 at 03:30; Stop 01/23/18 at 03:31; Status DC Ondansetron HCl (Zofran) 4 mg PRN Q8HRS PRN IV NAUSEA/VOMITING Last administered on 01/23/18at 07:41; Start 01/23/18 at 03:45; Stop 01/24/18 at 03:44 Fentanyl Citrate (Fentanyl 2ml Vial) 75 mcg PRN Q2HR PRN IV pain unrelieved by other meds Last administered on 01/23/18at 10:14; Start 01/23/18 at 03:45; Stop 01/24/18 at 03:44 Acetaminophen (Tylenol) 650 mg PRN Q4HRS PRN PO FEVER; Start 01/23/18 at 03:45 ; Stop 01/24/18 at 03:44 Oxycodone HCl (Roxicodone) 10 mg PRN Q6HRS PRN PO pain not relieved by tylenol Last administered on 01/23/18at 04:57; Start 01/23/18 at 03:45 Diphenhydramine HCl (Benadryl) 25 mg 1X ONCE IVP Last administered on at 04:57; Start 01/23/18 at 05:00; Stop 01/23/18 at 05:01; Status DC Iohexol (Omnipaque 300 Mg/ml) 100 ml STK-MED ONCE .ROUTE ; Start 01/23/18 at 06: 46; Stop 01/23/18 at 06:49; Status DC Active Scripts Active Hydrocodone-Apap 7.5-325 (Hydrocodone Bit/Acetaminophen) 1 Each Tablet 1 Tab PO PRN Q4HRS PRN Trazodone Hcl 50 Mg Tablet 1 Tab PO QHS Miralax (Polyethylene Glycol 3350) 17 Gm Powd.pack 17 Gm PO BID Reported Dicyclomine Hcl 10 Mg Capsule 10 Mg PO QID PRN Zanaflex (Tizanidine Hcl) 4 Mg Capsule 2 Mg PO TID PRN Zoloft (Sertraline Hcl) 100 Mg Tablet 1 Tab PO DAILY Protonix (Pantoprazole Sodium) 40 Mg Tablet.dr 1 Tab PO DAILY Melatonin 3 Mg Tablet 1 Tab PO QHS Allergies Allergies: Coded Allergies: morphine (Verified Allergy, Severe, Shortness of Air, 01/25/16) ROS Review of System Review of Systems Review of Systems Constitutional: Denies fever or chills Eyes: Denies change in visual acuity HENT: Denies nasal congestion Respiratory: Denies cough or shortness of breath Cardiovascular: No additional information not addressed in HPI GI: Denies abdominal pain. + some diarrhea : Denies dysuria or hematuria Musculoskeletal: Denies back pain or joint pain Integument: Denies rash or skin lesions Neurologic: Denies headache 14 PT systems were reviewed and found to be within normal limits, except as documented . General: No: Chills, Night Sweats, Fatigue, Malaise, Appetite, Other PSYCHOLOGICAL ROS: YES: Anxiety Physical Exam Physical Exam Physical Exam Physical Exam Constitutional: Well developed, well nourished, no acute distress, non-toxic appearance HENT: Normocephalic, atraumatic, bilateral external ears normal, oropharynx moist Eyes: PERRLA Neck: Normal range of motion, no tenderness, supple, no stridor Cardiovascular:Heart rate regular rhythm, no murmur Lungs & Thorax: Bilateral breath sounds clear to auscultation Abdomen: Bowel sounds normal, soft, no tenderness Skin: Warm, dry Extremities: No tenderness of the calf muscles. no swelling Neurologic: Alert and oriented X 3 Psychologic: Affect normal General: Oriented X3, Cooperative, No acute distress HEENT: PERRLA, EOMI Breasts: Not examined Rectal Exam: not examined Neuro: Normal speech, Cranial nerves 3-12 NL Psych/Mental Status: Mental status NL, Mood NL Vitals Vitals Vital Signs Date Time Temp Pulse Resp B/P (MAP) Pulse Ox O2 Delivery O2 Flow Rate FiO2 01/23/18 10:14 19 Room Air 01/23/18 07:00 96.6 61 102/52 (69) 100 96.6 Labs Labs Laboratory Tests Test 01/23/18 01:00 White Blood Count 7.3 x10^3/uL (4.0-11.0) Red Blood Count 4.85 x10^6/uL (3.50-5.40) Hemoglobin 13.5 g/dL (12.0-15.5) Hematocrit 40.2 % (36.0-47.0) Mean Corpuscular Volume 83 fL (79-100) Mean Corpuscular Hemoglobin 28 pg (25-35) Mean Corpuscular Hemoglobin Concent 34 g/dL (31-37) Red Cell Distribution Width 13.6 % (11.5-14.5) Platelet Count 336 x10^3/uL (140-400) Neutrophils (%) (Auto) 57 % (31-73) Lymphocytes (%) (Auto) 32 % (24-48) Monocytes (%) (Auto) 7 % (0-9) Eosinophils (%) (Auto) 3 % (0-3) Basophils (%) (Auto) 1 % (0-3) Neutrophils # (Auto) 4.2 x10^3uL (1.8-7.7) Lymphocytes # (Auto) 2.4 x10^3/uL (1.0-4.8) Monocytes # (Auto) 0.5 x10^3/uL (0.0-1.1) Eosinophils # (Auto) 0.2 x10^3/uL (0.0-0.7) Basophils # (Auto) 0.1 x10^3/uL (0.0-0.2) Prothrombin Time 12.5 SEC (11.7-14.0) Prothromb Time International Ratio 1.0 (0.8-1.1) Activated Partial Thromboplast Time 30 SEC (24-38) D-Dimer (Luz) < 0.27 ug/mlFEU Sodium Level 138 mmol/L (136-145) Potassium Level 3.9 mmol/L (3.5-5.1) Chloride Level 102 mmol/L (98-107) Carbon Dioxide Level 30 mmol/L (21-32) Anion Gap 6 (6-14) Blood Urea Nitrogen 13 mg/dL (7-20) Creatinine 1.0 mg/dL (0.6-1.0) Estimated GFR (Cockcroft-Gault) 62.1 Glucose Level 109 mg/dL (70-99) Calcium Level 9.2 mg/dL (8.5-10.1) Troponin I Quantitative < 0.017 ng/mL (0.000-0.055) Triglycerides Level 168 mg/dL (0-150) Cholesterol Level 250 mg/dL (0-200) LDL Cholesterol, Calculated 144 mg/dL (0-100) VLDL Cholesterol, Calculated 34 mg/dL (0-40) Non-HDL Cholesterol Calculated 178 mg/dL (0-129) HDL Cholesterol 72 mg/dL (40-60) Cholesterol/HDL Ratio 3.5 Laboratory Tests Test 01/23/18 01:00 White Blood Count 7.3 x10^3/uL (4.0-11.0) Red Blood Count 4.85 x10^6/uL (3.50-5.40) Hemoglobin 13.5 g/dL (12.0-15.5) Hematocrit 40.2 % (36.0-47.0) Mean Corpuscular Volume 83 fL (79-100) Mean Corpuscular Hemoglobin 28 pg (25-35) Mean Corpuscular Hemoglobin Concent 34 g/dL (31-37) Red Cell Distribution Width 13.6 % (11.5-14.5) Platelet Count 336 x10^3/uL (140-400) Neutrophils (%) (Auto) 57 % (31-73) Lymphocytes (%) (Auto) 32 % (24-48) Monocytes (%) (Auto) 7 % (0-9) Eosinophils (%) (Auto) 3 % (0-3) Basophils (%) (Auto) 1 % (0-3) Neutrophils # (Auto) 4.2 x10^3uL (1.8-7.7) Lymphocytes # (Auto) 2.4 x10^3/uL (1.0-4.8) Monocytes # (Auto) 0.5 x10^3/uL (0.0-1.1) Eosinophils # (Auto) 0.2 x10^3/uL (0.0-0.7) Basophils # (Auto) 0.1 x10^3/uL (0.0-0.2) Prothrombin Time 12.5 SEC (11.7-14.0) Prothromb Time International Ratio 1.0 (0.8-1.1) Activated Partial Thromboplast Time 30 SEC (24-38) D-Dimer (Luz) < 0.27 ug/mlFEU Sodium Level 138 mmol/L (136-145) Potassium Level 3.9 mmol/L (3.5-5.1) Chloride Level 102 mmol/L (98-107) Carbon Dioxide Level 30 mmol/L (21-32) Anion Gap 6 (6-14) Blood Urea Nitrogen 13 mg/dL (7-20) Creatinine 1.0 mg/dL (0.6-1.0) Estimated GFR (Cockcroft-Gault) 62.1 Glucose Level 109 mg/dL (70-99) Calcium Level 9.2 mg/dL (8.5-10.1) Troponin I Quantitative < 0.017 ng/mL (0.000-0.055) Triglycerides Level 168 mg/dL (0-150) Cholesterol Level 250 mg/dL (0-200) LDL Cholesterol, Calculated 144 mg/dL (0-100) VLDL Cholesterol, Calculated 34 mg/dL (0-40) Non-HDL Cholesterol Calculated 178 mg/dL (0-129) HDL Cholesterol 72 mg/dL (40-60) Cholesterol/HDL Ratio 3.5 VTE Prophylaxis Ordered VTE Prophylaxis Devices: Yes VTE Pharmacological Prophylaxi: Yes Assessment/Plan Assessment/Plan ASSESSMENT/PLAN Atypical chest pain: TIA symptoms GERD: on PPI Anxiety with hx of panic attack . Family hx of premature CAD: father CT at 38 HLP MORBID Obesity PLAN Consult neurology. Stress echo today if CT is OK Dietitian consult WT LOSS. JOSE ZHAO MD Jan 23, 2018 10:29
[2018-01-23 11:00] VITALS: BP 94/65
--- NOTE | 2018-01-23 12:11 | EKG ---
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
--- NOTE | 2018-01-23 12:16 | RAD ---
CT HEAD INDICATION: Transient ischemic attack COMPARISON: None Available. TECHNIQUE: 5 mm contiguous axial images were obtained from the skull base to the vertex in both bone and soft tissue algorithm. Exposure: One or more of the following individualized dose reduction techniques were utilized for this examination: 1. Automated exposure control 2. Adjustment of the mA and/or kV according to patient size 3. Use of iterative reconstruction technique FINDINGS: No abnormal attenuation within the brain parenchyma. No evidence of acute intracranial hemorrhage. No extra-axial fluid collections. No mass effect or midline shift. Ventricular size is appropriate. Basal cisterns are patent. No fractures identified.Guzman-white differentiation is preserved.Globes and orbits are within normal limits. Paranasal sinuses and mastoid air cells are clear. IMPRESSION: No acute intracranial findings. Electronically signed by: Jonathan Mcginnis MD (01/23/2018 12:13 PM) [id number]
--- NOTE | 2018-01-23 13:38 | RAD ---
Exam : Carotid Duplex with Grayscale Ultrasound and Spectral and Color Doppler Analysis 01/23/2018 1:29 PM Clinical Indications: Transient ischemic attack Comparison study: None available. PQRS Compliance Statement - Stenosis calculations for CT, MR and conventional angiography are based upon measurement of the distal ICA diameter in accordance with the NASCET methodology. Stenosis calculations for carotid ultrasound studies are derived from validated velocity criteria which are known to correlate with the NASCET methodology. Findings: The common, internal and external carotid arteries were examined by grayscale, color and spectral Doppler ultrasound. Mild atherosclerotic plaquing is noted in the carotid bulbs. No high-grade visual stenosis is identified color Doppler imaging. Flow in the vertebral arteries is antegrade bilaterally. The following are the velocities and ratios in the carotid arteries on both sides: RIGHT ICA PV: 82cm/sec RIGHT CCA PV: 91cm/sec RIGHT ICA ED: 37cm/sec RIGHT IC/CCPV: Less than 2 RIGHT VERTEBRAL: antegrade flow LEFT ICA PV: 103cm/sec LEFT CCA PV: 107cm/sec LEFT ICA ED: 42cm/sec LEFT IC/CCPV: Less than 2 LEFT VERTEBRAL: antegrade flow <50% ICA Stenosis: PSV < 125cm/s (EDV < 40cm/s; SVR < 2.0) 50-69% ICA Stenosis: PSV < 125-229cm/s (EDV 40-99cm/s; SVR 2.0-3.9) >70% ICA Stenosis: PSV > 230cm/s (EDV >100cm/s; SVR >4.0) Impression: Mildly elevated end-diastolic velocity within the left internal carotid artery. By velocity criteria alone finding suggests a 50-69 percent stenosis. Given lack of other evidence of significant stenosis, findings felt to most likely be artifactual. If clinical concern persists consider CT angiography of the neck. Electronically signed by: Rajesh August MD (01/23/2018 1:34 PM) [id number]
[2018-01-23 15:00] VITALS: BP 109/58
--- NOTE | 2018-01-23 16:43 | CARD ---
MR#: [id number] Date of Study: 01/23/2018 Ordering Physician: SAE SINHA, Referring Physician: NATASHA GIBBS, Tech: Agnes Triana RDCS APPROVED REPORT INDICATION Chest Pain Reason : Patient complained of pain PROCEDURE The patient underwent an Exercise Stress Test using the Antonio Protocol. Blood pressure, heart rate, a nd EKG were monitored. An Echocardiogram was performed by educational technician in four stages in quad fashion. At peak stress four se lected images were obtained and placed side by side with resting images for comparison. STRESS ECHO FINDINGS The resting Echocardiogram showed normal left ventricular systolic contractility with an estimated Ej ection Fraction of about 60 %. The Resting Echocardiogram showed normal augmentation of myocardial wall segments using a 16 segment model. The Stress Echocardiogram showed normal augmentation of myocardial wall segments using a 16 segment m joselyn. The Stress Echocardiogram left ventricular systolic contractility has an estimated Ejection Fraction of about 70%. Test Type: Exercise Stress Nurse/Tech: Nata Bajwa RN Test Indications: chest pain Cardiac History and Allergies: see ehr Medications: see ehr Medical History: see ehr Resting ECG: sr Resting Heart Rate: 77 bpm Resting Blood Pressure: 94/65mmHg Pretest Chest Pain: yes Stress Symptoms pt continuesd to have chest pain throughout test POST EXERCISE Reason for Termination: Reached target heart rate Target HR: Yes Max HR: 167 bpm 92% of Maximum Predicted HR: 182 bpm Exercise duration: 9:00 min:sec, 3 Stage Exercise capacity: 10.1METs Max Blood Pressure: 163/81mmHg Blood Pressure response to exercise: Normal blood pressure response during stress. Heart Rate response to exercise: normal Chest Pain: Yes. see above Arrhythmia: No. ST Change: No. INTERPRETATION Stress EKG Conclusion: Baseline EKG showed sinus rhythm. No ischemic changes at peak stress. No arr hythmias. Preliminary Notification Critical Value: No <Conclusion> Treadmill exercise stress echocardiogram did not show any evidence of ischemia or infarct. Normal left ventricle systolic function with ejection fraction estimated at 60%. Patient had good activity tolerance. Low risk for cardiac events. Signed by : Nicho Moreau, Electronically Approved : 01/23/2018 16:42:11
--- NOTE | 2018-01-23 17:21 | PDOC2 ---
NEUROLOGY CONSULT Date of Admission Date of Admission DATE: 01/23/18 TIME: 17:04 Reason for Consult Reason for Consult: IMPRESSION: Chest pain. Headaches. Left side numbness, tingling, and weakness. HLD. GERD. Anxiety. Carotid A stenosis. Obesity. RECOMMENDATIONS/PLAN: ASA 325 mg daily. Topamax 25 mg bid. Brain MRI w/o contrast. Carotid A US + Doppler, performed. Lab: see orders. Treat medical diseases. HCT on 01/23: Negative. HISTORY OF THE PRESENT ILLNESS: 37-y-old female patient with above medical diseases came to the ER of [facility] with complaints of chest pain. She was admitted for further evaluation. After on the floor, she stated had symptoms of left side facial and extremities numbness, tingling, and weakness. Neurology was requested for consultation due to her CVA like symptoms. PAST MEDICAL HISTORY Past Medical History Cardiovascular: No pertinent hx Pulmonary: No pertinent hx GI: GERD Heme/Onc: No pertinent hx Hepatobiliary: No pertinent hx Psych: Anxiety Rheumatologic: No pertinent hx Infectious disease: No pertinent hx ENT: No pertinent hx Renal/: No pertinent hx Endocrine: No pertinent hx Dermatology: No pertinent hx PAST SURGICAL HISTORY Cholecystectomy, Appendectomy, Tonsillectomy, Hysterectomy FAMILY HISTORY Coronary Artery Disease (father- [place] at age 35, multiple stents), Hypertension SOCIAL HISTORY Social History Smoke: No ALCOHOL: none Drugs: None Lives: with Family ALLERGIES: Morphine (Verified Allergy, Severe, Shortness of Air, 01/25/16) MEDICATIONS: Refer to [facility] REVIEW OF SYSTEMS: Constitutional: No malnutrition, weight loss, cachexia. Head: No traumatic brain or head injury. Skin: No edema, or rash. Ear: No infection, tinnitus. Eyes: No vision loss or color blindness. Nose: No bleeding or purulent discharges. Hearing: No hearing decrease. Neck: No injury. Breast: No history of cancer, masses,or discharges. Cardiac: HLD. Pulmonary: No pneumonia, COPD. GI: No GI ulcer, GI bleeding. Urinary/genital: UTI. Endocrinologic: Obesity. Skeletomuscular: No muscular atrophy, deformity. Neurological: see HP. Psychiatric: Denies drug use/abuse. Otherwise, not [id number] review of systems. PHYSICAL EXAMINATION: General appearance is in anxiety. HEENT: Normocephalic and nontraumatic. Eyes, nose, ears, and throat are unremarkable. Neck is supple. No lymphadenopathy. No crepitus. Cardiovascular: S1, S2, regular rate and rhythm. Pulmonary: Clear to auscultation bilaterally. Abdomen: Bowel sounds are positive. Abdomen is soft, nontender, and nondistended. Extremities: No rash, lesions, or edema. No restriction of range of motion NEUROLOGICAL EXAMINATION: Alert Oriented to time, place and person. PERRL. EOMI. CN: no focal findings. Muscle tone: within normal. Muscle strength: 5 DTR: 2 Plantar reflex: Flexor response bilaterally Gait: not examined in bed. Sensory exam: no abnormal findings. No cerebellar signs elicited. F-T-N test accurate. Current Medications Current Medications Current Medications Fentanyl Citrate (Fentanyl 2ml Vial) 75 mcg 1X ONCE IV Last administered on at 01:05; Start 01/23/18 at 01:00; Stop 01/23/18 at 01:01; Status DC Sodium Chloride 1,000 ml @ 1,000 mls/hr 1X ONCE IV Last administered on at 01:30; Start 01/23/18 at 01:30; Stop 01/23/18 at 02:29; Status DC Fentanyl Citrate (Fentanyl 2ml Vial) 75 mcg 1X ONCE IV Last administered on at 02:00; Start 01/23/18 at 02:00; Stop 01/23/18 at 02:01; Status DC Iohexol (Omnipaque 300 Mg/ml) 75 ml 1X ONCE IV ; Start 01/23/18 at 02:15; Stop 01/23/18 at 02:16; Status DC Info (CONTRAST GIVEN -- Rx MONITORING) 1 each PRN DAILY PRN MC SEE COMMENTS; Start 01/23/18 at 02:15; Stop 01/25/18 at 02:14 Diphenhydramine HCl (Benadryl) 25 mg 1X ONCE IVP Last administered on at 02:15; Start 01/23/18 at 02:15; Stop 01/23/18 at 02:57; Status DC Ketorolac Tromethamine (Toradol) 30 mg 1X ONCE IV Last administered on at 03:13; Start 01/23/18 at 03:15; Stop 01/23/18 at 03:16; Status DC Fentanyl Citrate (Fentanyl 2ml Vial) 75 mcg 1X ONCE IV Last administered on at 03:41; Start 01/23/18 at 03:30; Stop 01/23/18 at 03:31; Status DC Ondansetron HCl (Zofran) 4 mg PRN Q8HRS PRN IV NAUSEA/VOMITING Last administered on 01/23/18at 07:41; Start 01/23/18 at 03:45; Stop 01/24/18 at 03:44 Fentanyl Citrate (Fentanyl 2ml Vial) 75 mcg PRN Q2HR PRN IV pain unrelieved by other meds Last administered on 01/23/18at 13:59; Start 01/23/18 at 03:45; Stop 01/24/18 at 03:44 Acetaminophen (Tylenol) 650 mg PRN Q4HRS PRN PO FEVER; Start 01/23/18 at 03:45 ; Stop 01/24/18 at 03:44 Oxycodone HCl (Roxicodone) 10 mg PRN Q6HRS PRN PO pain not relieved by tylenol Last administered on 01/23/18at 11:51; Start 01/23/18 at 03:45 Diphenhydramine HCl (Benadryl) 25 mg 1X ONCE IVP Last administered on at 04:57; Start 01/23/18 at 05:00; Stop 01/23/18 at 05:01; Status DC Iohexol (Omnipaque 300 Mg/ml) 100 ml STK-MED ONCE .ROUTE ; Start 01/23/18 at 06: 46; Stop 01/23/18 at 06:49; Status DC Atorvastatin Calcium (Lipitor) 40 mg QHS PO ; Start 01/23/18 at 21:00 Aspirin (Ade Aspirin) 325 mg DAILYWBKFT PO ; Start 01/23/18 at 16:00 Active Scripts Active Hydrocodone-Apap 7.5-325 (Hydrocodone Bit/Acetaminophen) 1 Each Tablet 1 Tab PO PRN Q4HRS PRN Trazodone Hcl 50 Mg Tablet 1 Tab PO QHS Miralax (Polyethylene Glycol 3350) 17 Gm Powd.pack 17 Gm PO BID Reported Dicyclomine Hcl 10 Mg Capsule 10 Mg PO QID PRN Zanaflex (Tizanidine Hcl) 4 Mg Capsule 2 Mg PO TID PRN Zoloft (Sertraline Hcl) 100 Mg Tablet 1 Tab PO DAILY Protonix (Pantoprazole Sodium) 40 Mg Tablet.dr 1 Tab PO DAILY Melatonin 3 Mg Tablet 1 Tab PO QHS Allergies Allergies: Allergies Coded Allergies Type Severity Reaction Last Updated Verified morphine Allergy Severe Shortness of Air 01/25/16 Yes ROS Review of System The patient denies any associated fevers, chills, headache, ear pain, rhinorrhea , sore throat, stiff neck, productive cough, chest pain, shortness of breath, back or flank pain, abdominal pain, nausea, vomiting, diarrhea, constipation, dysuria, rash, numbness, weakness, tingling, incontinence, difficulty ambulating, or diaphoresis. Physical Exam Physical Exam General: Well developed, well nourished, no acute distress, well appearing HEENT: Pupils equally round and reactive to light, EOMI, no discharge, normal conjunctiva Neck: Supple, no nuchal rigidity, no JVD, trachea midline, no tenderness Cardiac: RRR, no murmurs, no gallops, no rubs Chest/Lungs: CTAB, no wheeze, no rhonchi, no crackles Abdomen: soft, non-distended, no guarding, no peritoneal signs, non-tender Back: No tenderness Extremities: no edema, pulses intact, non-tender,capillary refill <3 sec bilateral upper and lower extremities, Neuro: Alert and oriented x 4, no focal deficits, normal speech Vitals Vitals: Vital Signs Date Time Temp Pulse Resp B/P (MAP) Pulse Ox O2 Delivery O2 Flow Rate FiO2 01/23/18 15:00 97.7 80 20 109/58 (75) 92 Room Air 97.7 Labs Labs Laboratory Tests Test 01/23/18 01:00 01/23/18 11:00 01/23/18 11:05 01/23/18 11:36 White Blood Count 7.3 x10^3/uL (4.0-11.0) Red Blood Count 4.85 x10^6/uL (3.50-5.40) Hemoglobin 13.5 g/dL (12.0-15.5) Hematocrit 40.2 % (36.0-47.0) Mean Corpuscular Volume 83 fL (79-100) Mean Corpuscular Hemoglobin 28 pg (25-35) Mean Corpuscular Hemoglobin Concent 34 g/dL (31-37) Red Cell Distribution Width 13.6 % (11.5-14.5) Platelet Count 336 x10^3/uL (140-400) Neutrophils (%) (Auto) 57 % (31-73) Lymphocytes (%) (Auto) 32 % (24-48) Monocytes (%) (Auto) 7 % (0-9) Eosinophils (%) (Auto) 3 % (0-3) Basophils (%) (Auto) 1 % (0-3) Neutrophils # (Auto) 4.2 x10^3uL (1.8-7.7) Lymphocytes # (Auto) 2.4 x10^3/uL (1.0-4.8) Monocytes # (Auto) 0.5 x10^3/uL (0.0-1.1) Eosinophils # (Auto) 0.2 x10^3/uL (0.0-0.7) Basophils # (Auto) 0.1 x10^3/uL (0.0-0.2) Prothrombin Time 12.5 SEC (11.7-14.0) Prothromb Time International Ratio 1.0 (0.8-1.1) Activated Partial Thromboplast Time 30 SEC (24-38) D-Dimer (Luz) < 0.27 ug/mlFEU Sodium Level 138 mmol/L (136-145) Potassium Level 3.9 mmol/L (3.5-5.1) Chloride Level 102 mmol/L (98-107) Carbon Dioxide Level 30 mmol/L (21-32) Anion Gap 6 (6-14) Blood Urea Nitrogen 13 mg/dL (7-20) Creatinine 1.0 mg/dL (0.6-1.0) Estimated GFR (Cockcroft-Gault) 62.1 Glucose Level 109 mg/dL (70-99) Calcium Level 9.2 mg/dL (8.5-10.1) Troponin I Quantitative < 0.017 ng/mL (0.000-0.055) < 0.017 ng/mL (0.000-0.055) Triglycerides Level 168 mg/dL (0-150) Cholesterol Level 250 mg/dL (0-200) LDL Cholesterol, Calculated 144 mg/dL (0-100) VLDL Cholesterol, Calculated 34 mg/dL (0-40) Non-HDL Cholesterol Calculated 178 mg/dL (0-129) HDL Cholesterol 72 mg/dL (40-60) Cholesterol/HDL Ratio 3.5 Erythrocyte Sedimentation Rate 10 (0-25) Thyroid Stimulating Hormone (TSH) 4.217 uIU/mL (0.358-3.74) Glucose (Fingerstick) 86 mg/dL (70-99) Laboratory Tests Test 01/23/18 01:00 01/23/18 11:00 01/23/18 11:05 01/23/18 11:36 White Blood Count 7.3 x10^3/uL (4.0-11.0) Red Blood Count 4.85 x10^6/uL (3.50-5.40) Hemoglobin 13.5 g/dL (12.0-15.5) Hematocrit 40.2 % (36.0-47.0) Mean Corpuscular Volume 83 fL (79-100) Mean Corpuscular Hemoglobin 28 pg (25-35) Mean Corpuscular Hemoglobin Concent 34 g/dL (31-37) Red Cell Distribution Width 13.6 % (11.5-14.5) Platelet Count 336 x10^3/uL (140-400) Neutrophils (%) (Auto) 57 % (31-73) Lymphocytes (%) (Auto) 32 % (24-48) Monocytes (%) (Auto) 7 % (0-9) Eosinophils (%) (Auto) 3 % (0-3) Basophils (%) (Auto) 1 % (0-3) Neutrophils # (Auto) 4.2 x10^3uL (1.8-7.7) Lymphocytes # (Auto) 2.4 x10^3/uL (1.0-4.8) Monocytes # (Auto) 0.5 x10^3/uL (0.0-1.1) Eosinophils # (Auto) 0.2 x10^3/uL (0.0-0.7) Basophils # (Auto) 0.1 x10^3/uL (0.0-0.2) Prothrombin Time 12.5 SEC (11.7-14.0) Prothromb Time International Ratio 1.0 (0.8-1.1) Activated Partial Thromboplast Time 30 SEC (24-38) D-Dimer (Luz) < 0.27 ug/mlFEU Sodium Level 138 mmol/L (136-145) Potassium Level 3.9 mmol/L (3.5-5.1) Chloride Level 102 mmol/L (98-107) Carbon Dioxide Level 30 mmol/L (21-32) Anion Gap 6 (6-14) Blood Urea Nitrogen 13 mg/dL (7-20) Creatinine 1.0 mg/dL (0.6-1.0) Estimated GFR (Cockcroft-Gault) 62.1 Glucose Level 109 mg/dL (70-99) Calcium Level 9.2 mg/dL (8.5-10.1) Troponin I Quantitative < 0.017 ng/mL (0.000-0.055) < 0.017 ng/mL (0.000-0.055) Triglycerides Level 168 mg/dL (0-150) Cholesterol Level 250 mg/dL (0-200) LDL Cholesterol, Calculated 144 mg/dL (0-100) VLDL Cholesterol, Calculated 34 mg/dL (0-40) Non-HDL Cholesterol Calculated 178 mg/dL (0-129) HDL Cholesterol 72 mg/dL (40-60) Cholesterol/HDL Ratio 3.5 Erythrocyte Sedimentation Rate 10 (0-25) Thyroid Stimulating Hormone (TSH) 4.217 uIU/mL (0.358-3.74) Glucose (Fingerstick) 86 mg/dL (70-99) CONNIE MCGEE MD Jan 23, 2018 17:21
[2018-01-23] MEDS ORDERED: diphenhydrAMINE HCL 25 MG CAPSULE PO PRN (17:30)
[2018-01-23] MEDS: ASPIRIN 325 MG TABLET PO SCH (17:43)
[2018-01-23 18:37] LABS: BARBITURATES NEG (NEG); BENZODIAZEPINES NEG (NEG); CANNABINOIDS NEG (NEG); COCAINE NEG (NEG); METHADONE NEG (NEG); OPIATES POS (NEG); PHENCYCLIDINE NEG (NEG)
[2018-01-23 18:43] LABS: AMPHETAMINE/METHAMPHETAMINE NEG (NEG)
[2018-01-23 19:00] VITALS: BP 111/75
[2018-01-23] MEDS: ATORVASTATIN CALCIUM 40 MG TABLET. PO SCH (20:06)
[2018-01-23] MEDS: TOPIRAMATE 25 MG TABLET. PO SCH (20:06)
[2018-01-23] MEDS: diphenhydrAMINE 50 MG/ML VIAL IVP PRN (20:07)
[2018-01-23] MEDS: DIPHENHYDRAMINE/ZINC ACETATE 2%/0.1% TOPICAL CREAM 28GM TUBE. TP PRN (22:31)
[2018-01-23 23:00] VITALS: BP 103/63
[2018-01-24] VITALS (8 sets, daily range): BP systolic 96–154; BP diastolic 44–88
[2018-01-24] MEDS: fentaNYL PF VIAL 100 MCG/2 ML VIAL IV PRN (00:55)
[2018-01-24] MEDS: oxyCODONE IR 5 MG TABLET PO PRN ×4 (01:43→20:00)
[2018-01-24] MEDS ORDERED: DULO30CA43 PO (01:53)
[2018-01-24] MEDS ORDERED: fentaNYL PF VIAL 100 MCG/2 ML VIAL IV PRN (04:45)
[2018-01-24] MEDS: ASPIRIN 325 MG TABLET PO SCH (07:35)
[2018-01-24] MEDS: TOPIRAMATE 25 MG TABLET. PO SCH ×2 (07:35→20:01)
[2018-01-24] MEDS: DULoxetine HCL 30 MG CAPSULE.DR PO SCH (08:47)
[2018-01-24] MEDS: PANTOPRAZOLE 40 MG TABLET.DR. PO SCH (08:47)
--- NOTE | 2018-01-24 10:17 | PDOC ---
PROGRESS NOTES History of Present Illness History of Present Illness Assessment/Plan Assessment/Plan ASSESSMENT/PLAN Atypical chest pain: TIA symptoms left arm and leg weakness GERD: on PPI Anxiety with hx of panic attack . Family hx of premature CAD: father DC at 38 HLP MORBID Obesity PLAN Consult neurology. Stress echo ok Dietitian consult WT LOSS. 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 Mild atherosclerotic plaquing is noted in the carotid bulbs. No high-grade visual stenosis is identified color Doppler imaging. Flow in the vertebral arteries is antegrade bilaterally. The following are the velocities and ratios in the carotid arteries on both sides: RIGHT ICA PV: 82cm/sec RIGHT CCA PV: 91cm/sec RIGHT ICA ED: 37cm/sec RIGHT IC/CCPV: Less than 2 RIGHT VERTEBRAL: antegrade flow LEFT ICA PV: 103cm/sec LEFT CCA PV: 107cm/sec LEFT ICA ED: 42cm/sec LEFT IC/CCPV: Less than 2 LEFT VERTEBRAL: antegrade flow <50% ICA Stenosis: PSV < 125cm/s (EDV < 40cm/s; SVR < 2.0) 50-69% ICA Stenosis: PSV < 125-229cm/s (EDV 40-99cm/s; SVR 2.0-3.9) >70% ICA Stenosis: PSV > 230cm/s (EDV >100cm/s; SVR >4.0) Impression: Mildly elevated end-diastolic velocity within the left internal carotid artery. By velocity criteria alone finding suggests a 50-69 percent stenosis. Given lack of other evidence of significant stenosis, findings felt to most likely be artifactual. If clinical concern persists consider CT angiography of the neck. Electronically signed by: Rajesh August MD (01/23/2018 1:34 PM) [id number] REASON: left side numbness and weakness. PROCEDURE: BRAIN W/O CONTRAST MRI of the brain without contrast 01/24/2018 Clinical History: Headaches with left-sided numbness.. Technique: Unenhanced T1-weighted sagittal and axial, T2-weighted axial and coronal and FLAIR, gradient echo and diffusion-weighted axial images of the brain were obtained. Findings: The ventricles and sulci are within normal limits in size and configuration. No area of significant abnormal signal intensity is seen involving brain parenchyma. No extra-axial fluid collection is seen. There is no MRI evidence of acute ischemia/infarction. The paranasal sinuses are essentially clear. Normal flow voids are seen within the major vascular structures surrounding the brain parenchyma. Impression: Negative study. Electronically signed by: Aidan Barkley MD (01/24/2018 11:42 AM) [facility] Stress Symptoms pt continuesd to have chest pain throughout test POST EXERCISE Reason for Termination: Reached target heart rate Target HR: Yes Max HR: 167 bpm 92% of Maximum Predicted HR: 182 bpm Exercise duration: 9:00 min:sec, 3 Stage Exercise capacity: 10.1METs Max Blood Pressure: 163/81mmHg Blood Pressure response to exercise: Normal blood pressure response during stress. Heart Rate response to exercise: normal Chest Pain: Yes. see above Arrhythmia: No. ST Change: No. INTERPRETATION Stress EKG Conclusion: Baseline EKG showed sinus rhythm. No ischemic changes at peak stress. No arrhythmias. Preliminary Notification Critical Value: No <Conclusion> Treadmill exercise stress echocardiogram did not show any evidence of ischemia or infarct. Normal left ventricle systolic function with ejection fraction estimated at 60%. Patient had good activity tolerance. Low risk for cardiac events. Signed by : Nicho Moreau Electronically Approved : 01/23/2018 16:42:11 Laboratory Tests Test 01/23/18 11:00 01/23/18 11:05 01/23/18 11:36 01/23/18 18:17 Erythrocyte Sedimentation Rate 10 (0-25) Troponin I Quantitative < 0.017 ng/mL (0.000-0.055) Thyroid Stimulating Hormone (TSH) 4.217 uIU/mL (0.358-3.74) Glucose (Fingerstick) 86 mg/dL (70-99) Urine Opiates Screen Pos (NEG) Urine Methadone Screen Neg (NEG) Urine Barbiturates Neg (NEG) Urine Phencyclidine Screen Neg (NEG) Urine Amphetamine/Methamphetamine Neg (NEG) Urine Benzodiazepines Screen Neg (NEG) Urine Cocaine Screen Neg (NEG) Urine Cannabinoids Screen Neg (NEG) Urine Ethyl Alcohol Neg (NEG) Assessment and Plan Assessmemt and Plan Problems Medical Problems: (1) Other chest pain Status: Acute Comment Review of Relevant I have reviewed the following items lolis (where applicable) has been applied. Labs Laboratory Tests Test 01/23/18 01:00 01/23/18 11:00 01/23/18 11:05 01/23/18 11:36 White Blood Count 7.3 x10^3/uL (4.0-11.0) Red Blood Count 4.85 x10^6/uL (3.50-5.40) Hemoglobin 13.5 g/dL (12.0-15.5) Hematocrit 40.2 % (36.0-47.0) Mean Corpuscular Volume 83 fL (79-100) Mean Corpuscular Hemoglobin 28 pg (25-35) Mean Corpuscular Hemoglobin Concent 34 g/dL (31-37) Red Cell Distribution Width 13.6 % (11.5-14.5) Platelet Count 336 x10^3/uL (140-400) Neutrophils (%) (Auto) 57 % (31-73) Lymphocytes (%) (Auto) 32 % (24-48) Monocytes (%) (Auto) 7 % (0-9) Eosinophils (%) (Auto) 3 % (0-3) Basophils (%) (Auto) 1 % (0-3) Neutrophils # (Auto) 4.2 x10^3uL (1.8-7.7) Lymphocytes # (Auto) 2.4 x10^3/uL (1.0-4.8) Monocytes # (Auto) 0.5 x10^3/uL (0.0-1.1) Eosinophils # (Auto) 0.2 x10^3/uL (0.0-0.7) Basophils # (Auto) 0.1 x10^3/uL (0.0-0.2) Prothrombin Time 12.5 SEC (11.7-14.0) Prothromb Time International Ratio 1.0 (0.8-1.1) Activated Partial Thromboplast Time 30 SEC (24-38) D-Dimer (Luz) < 0.27 ug/mlFEU Sodium Level 138 mmol/L (136-145) Potassium Level 3.9 mmol/L (3.5-5.1) Chloride Level 102 mmol/L (98-107) Carbon Dioxide Level 30 mmol/L (21-32) Anion Gap 6 (6-14) Blood Urea Nitrogen 13 mg/dL (7-20) Creatinine 1.0 mg/dL (0.6-1.0) Estimated GFR (Cockcroft-Gault) 62.1 Glucose Level 109 mg/dL (70-99) Calcium Level 9.2 mg/dL (8.5-10.1) Troponin I Quantitative < 0.017 ng/mL (0.000-0.055) < 0.017 ng/mL (0.000-0.055) Triglycerides Level 168 mg/dL (0-150) Cholesterol Level 250 mg/dL (0-200) LDL Cholesterol, Calculated 144 mg/dL (0-100) VLDL Cholesterol, Calculated 34 mg/dL (0-40) Non-HDL Cholesterol Calculated 178 mg/dL (0-129) HDL Cholesterol 72 mg/dL (40-60) Cholesterol/HDL Ratio 3.5 Erythrocyte Sedimentation Rate 10 (0-25) Thyroid Stimulating Hormone (TSH) 4.217 uIU/mL (0.358-3.74) Glucose (Fingerstick) 86 mg/dL (70-99) Test 01/23/18 18:17 Urine Opiates Screen Pos (NEG) Urine Methadone Screen Neg (NEG) Urine Barbiturates Neg (NEG) Urine Phencyclidine Screen Neg (NEG) Urine Amphetamine/Methamphetamine Neg (NEG) Urine Benzodiazepines Screen Neg (NEG) Urine Cocaine Screen Neg (NEG) Urine Cannabinoids Screen Neg (NEG) Urine Ethyl Alcohol Neg (NEG) Laboratory Tests Test 01/23/18 11:00 01/23/18 11:05 01/23/18 11:36 01/23/18 18:17 Erythrocyte Sedimentation Rate 10 (0-25) Troponin I Quantitative < 0.017 ng/mL (0.000-0.055) Thyroid Stimulating Hormone (TSH) 4.217 uIU/mL (0.358-3.74) Glucose (Fingerstick) 86 mg/dL (70-99) Urine Opiates Screen Pos (NEG) Urine Methadone Screen Neg (NEG) Urine Barbiturates Neg (NEG) Urine Phencyclidine Screen Neg (NEG) Urine Amphetamine/Methamphetamine Neg (NEG) Urine Benzodiazepines Screen Neg (NEG) Urine Cocaine Screen Neg (NEG) Urine Cannabinoids Screen Neg (NEG) Urine Ethyl Alcohol Neg (NEG) Medications Current Medications Fentanyl Citrate (Fentanyl 2ml Vial) 75 mcg 1X ONCE IV Last administered on at 01:05; Start 01/23/18 at 01:00; Stop 01/23/18 at 01:01; Status DC Sodium Chloride 1,000 ml @ 1,000 mls/hr 1X ONCE IV Last administered on at 01:30; Start 01/23/18 at 01:30; Stop 01/23/18 at 02:29; Status DC Fentanyl Citrate (Fentanyl 2ml Vial) 75 mcg 1X ONCE IV Last administered on at 02:00; Start 01/23/18 at 02:00; Stop 01/23/18 at 02:01; Status DC Iohexol (Omnipaque 300 Mg/ml) 75 ml 1X ONCE IV ; Start 01/23/18 at 02:15; Stop 01/23/18 at 02:16; Status DC Info (CONTRAST GIVEN -- Rx MONITORING) 1 each PRN DAILY PRN MC SEE COMMENTS; Start 01/23/18 at 02:15; Stop 01/25/18 at 02:14 Diphenhydramine HCl (Benadryl) 25 mg 1X ONCE IVP Last administered on at 02:15; Start 01/23/18 at 02:15; Stop 01/23/18 at 02:57; Status DC Ketorolac Tromethamine (Toradol) 30 mg 1X ONCE IV Last administered on at 03:13; Start 01/23/18 at 03:15; Stop 01/23/18 at 03:16; Status DC Fentanyl Citrate (Fentanyl 2ml Vial) 75 mcg 1X ONCE IV Last administered on at 03:41; Start 01/23/18 at 03:30; Stop 01/23/18 at 03:31; Status DC Ondansetron HCl (Zofran) 4 mg PRN Q8HRS PRN IV NAUSEA/VOMITING Last administered on 01/23/18 07:41; Start 01/23/18 at 03:45; Stop 01/24/18 at 03:44 ; Status DC Fentanyl Citrate (Fentanyl 2ml Vial) 75 mcg PRN Q2HR PRN IV pain unrelieved by other meds Last administered on 01/24/18at 00:55; Start 01/23/18 at 03:45; Stop 01/24/18 at 03:44; Status DC Acetaminophen (Tylenol) 650 mg PRN Q4HRS PRN PO FEVER; Start 01/23/18 at 03:45 ; Stop 01/24/18 at 03:44; Status DC Oxycodone HCl (Roxicodone) 10 mg PRN Q6HRS PRN PO pain not relieved by tylenol Last administered on 01/24/18at 07:35; Start 01/23/18 at 03:45 Diphenhydramine HCl (Benadryl) 25 mg 1X ONCE IVP Last administered on at 04:57; Start 01/23/18 at 05:00; Stop 01/23/18 at 05:01; Status DC Iohexol (Omnipaque 300 Mg/ml) 100 ml STK-MED ONCE .ROUTE ; Start 01/23/18 at 06: 46; Stop 01/23/18 at 06:49; Status DC Atorvastatin Calcium (Lipitor) 40 mg QHS PO Last administered on 01/23/18 20: 06; Start 01/23/18 at 21:00 Aspirin (Ade Aspirin) 325 mg DAILYWBKFT PO Last administered on 01/24/18at 07: 35; Start 01/23/18 at 16:00 Diphenhydramine HCl (Benadryl) 25 mg PRN Q6HRS PRN PO ITCHING Last administered on 01/23/18 17:44; Start 01/23/18 at 17:30 Topiramate (Topamax) 25 mg BID PO Last administered on 01/24/18 07:35; Start 01/23/18 at 21:00 Diphenhydramine HCl (Benadryl) 50 mg PRN Q8HRS PRN IVP ITCHING Last administered on 8/14/18at 20:07; Start 01/23/18 at 19:45 Zinc Acetate/ Diphenhydramine (Benadryl Topical) 1 matthew PRN Q3HRS PRN TP ITCHING Last administered on 01/23/18at 22:31; Start 01/23/18 at 22:15 Fentanyl Citrate (Fentanyl 2ml Vial) 75 mcg PRN Q2HRS PRN IV SEVERE PAIN Last administered on 01/24/18at 04:51; Start 01/24/18 at 04:45; Stop 01/24/18 at 08:03 ; Status DC Acetaminophen (Tylenol) 650 mg PRN Q6HRS PRN PO HEADACHE/FEVER; Start 01/24/18 at 08:15 Duloxetine HCl (Cymbalta) 30 mg DAILY PO Last administered on 01/24/18at 08:47; Start 01/24/18 at 09:00 Pantoprazole Sodium (Protonix) 40 mg DAILYAC PO Last administered on 01/24/18at 08:47; Start 01/24/18 at 09:00 Trazodone HCl (Desyrel) 50 mg QHS PO ; Start 01/24/18 at 21:00 Active Scripts Active Hydrocodone-Apap 7.5-325 (Hydrocodone Bit/Acetaminophen) 1 Each Tablet 1 Tab PO PRN Q4HRS PRN Trazodone Hcl 50 Mg Tablet 1 Tab PO QHS Miralax (Polyethylene Glycol 3350) 17 Gm Powd.pack 17 Gm PO BID Reported Duloxetine Hcl 30 Mg Capsule. 30 Mg PO DAILY Protonix (Pantoprazole Sodium) 40 Mg Tablet. 1 Tab PO DAILY Vitals/I & O Vital Sign - Last 24 Hours 01/23/18 01/23/18 01/23/18 01/23/18 10:40 11:00 11:51 13:59 Temp 97.5 97.5 Pulse 77 Resp 17 18 17 18 B/P (MAP) 94/65 (75) Pulse Ox 95 O2 Delivery Room Air Room Air Room Air 01/23/18 01/23/18 01/23/18 01/23/18 15:00 17:44 19:00 20:00 Temp 97.7 96.3 97.7 96.3 Pulse 80 80 Resp 20 17 20 B/P (MAP) 109/58 (75) 111/75 (87) Pulse Ox 92 97 O2 Delivery Room Air Room Air Room Air Room Air 01/23/18 01/23/18 01/23/18 01/24/18 20:14 22:27 23:00 00:55 Temp 96.7 96.7 Pulse 64 Resp 20 B/P (MAP) 103/63 (76) Pulse Ox 96 O2 Delivery Room Air Room Air Room Air Room Air 01/24/18 01/24/18 01/24/18 01/24/18 01:25 01:43 03:00 04:51 Temp 96.7 96.7 Pulse 68 Resp 20 B/P (MAP) 96/44 (61) Pulse Ox 97 O2 Delivery Room Air Room Air Room Air Room Air 01/24/18 01/24/18 01/24/18 01/24/18 05:21 07:00 07:35 08:35 Temp 97.9 97.9 Pulse 84 Resp 18 16 18 B/P (MAP) 112/78 (89) Pulse Ox 96 O2 Delivery Room Air Room Air Room Air Room Air Intake and Output 01/23/18 01/23/18 01/24/18 15:00 23:00 07:00 Intake Total 0 ml 0 ml Balance 0 ml 0 ml JOSE ZHAO MD Jan 24, 2018 10:17
--- NOTE | 2018-01-24 11:47 | RAD ---
MRI of the brain without contrast 01/24/2018 Clinical History: Headaches with left-sided numbness.. Technique: Unenhanced T1-weighted sagittal and axial, T2-weighted axial and coronal and FLAIR, gradient echo and diffusion-weighted axial images of the brain were obtained. Findings: The ventricles and sulci are within normal limits in size and configuration. No area of significant abnormal signal intensity is seen involving brain parenchyma. No extra-axial fluid collection is seen. There is no MRI evidence of acute ischemia/infarction. The paranasal sinuses are essentially clear. Normal flow voids are seen within the major vascular structures surrounding the brain parenchyma. Impression: Negative study. Electronically signed by: Aidan Barkley MD (01/24/2018 11:42 AM) [id number]
[2018-01-24] MEDS: DIPHENHYDRAMINE/ZINC ACETATE 2%/0.1% TOPICAL CREAM 28GM TUBE. TP PRN ×2 (11:49→20:00)
[2018-01-24 12:46] LABS: FREE T4 0.94 ng/dL (0.76-1.46)
--- NOTE | 2018-01-24 14:34 | PDOC ---
PROGRESS NOTES Assessment Assessment Chest pain. Headaches. Left side numbness, tingling, and weakness. HLD. GERD. Anxiety. Carotid A stenosis. Obesity. No evidence of acute CVA this time. RECOMMENDATIONS/PLAN: ASA 325 mg daily. Topamax 25 mg bid. Lipitor 40 mg HS. Treat medical diseases. HCT on 01/23: Negative. Brain MRI w/o contrast on 01/24: Negative. HISTORY OF THE PRESENT ILLNESS: 37-y-old female patient with above medical diseases came to the ER of [facility] with complaints of chest pain. She was admitted for further evaluation. After on the floor, she stated had symptoms of left side facial and extremities numbness, tingling, and weakness. Neurology was requested for consultation due to her CVA like symptoms. PAST MEDICAL HISTORY Past Medical History Cardiovascular: No pertinent hx Pulmonary: No pertinent hx GI: GERD Heme/Onc: No pertinent hx Hepatobiliary: No pertinent hx Psych: Anxiety Rheumatologic: No pertinent hx Infectious disease: No pertinent hx ENT: No pertinent hx Renal/: No pertinent hx Endocrine: No pertinent hx Dermatology: No pertinent hx PAST SURGICAL HISTORY Cholecystectomy, Appendectomy, Tonsillectomy, Hysterectomy FAMILY HISTORY Coronary Artery Disease (father- [place] at age 35, multiple stents), Hypertension SOCIAL HISTORY Social History Smoke: No ALCOHOL: none Drugs: None Lives: with Family ALLERGIES: Morphine (Verified Allergy, Severe, Shortness of Air, 01/25/16) MEDICATIONS: Refer to [facility] REVIEW OF SYSTEMS: Constitutional: No malnutrition, weight loss, cachexia. Head: No traumatic brain or head injury. Skin: No edema, or rash. Ear: No infection, tinnitus. Eyes: No vision loss or color blindness. Nose: No bleeding or purulent discharges. Hearing: No hearing decrease. Neck: No injury. Breast: No history of cancer, masses,or discharges. Cardiac: HLD. Pulmonary: No pneumonia, COPD. GI: No GI ulcer, GI bleeding. Urinary/genital: UTI. Endocrinologic: Obesity. Skeletomuscular: No muscular atrophy, deformity. Neurological: see HP. Psychiatric: Denies drug use/abuse. Otherwise, not [id number] review of systems. PHYSICAL EXAMINATION: General appearance is in anxiety. HEENT: Normocephalic and nontraumatic. Eyes, nose, ears, and throat are unremarkable. Neck is supple. No lymphadenopathy. No crepitus. Cardiovascular: S1, S2, regular rate and rhythm. Pulmonary: Clear to auscultation bilaterally. Abdomen: Bowel sounds are positive. Abdomen is soft, nontender, and nondistended. Extremities: No rash, lesions, or edema. No restriction of range of motion NEUROLOGICAL EXAMINATION: Alert Oriented to time, place and person. PERRL. EOMI. CN: no focal findings. Muscle tone: within normal. Muscle strength: 5 DTR: 2 Plantar reflex: Flexor response bilaterally Gait: not examined in bed. Sensory exam: no abnormal findings. No cerebellar signs elicited. F-T-N test accurate. Objective Objective Vital Signs Date Time Temp Pulse Resp B/P (MAP) Pulse Ox O2 Delivery O2 Flow Rate FiO2 01/24/18 14:02 6 Room Air 01/24/18 11:06 97.3 80 114/69 (84) 96 97.3 Intake and Output 01/24/18 07:00 Intake Total 0 ml Balance 0 ml Intake Oral 0 ml # Voids 4 Vitals Signs Vitals VS - Last 72 Hours, by Label Date Time Temp Pulse Resp B/P (MAP) Pulse Ox O2 Delivery O2 Flow Rate FiO2 01/24/18 14:02 6 Room Air 01/24/18 11:06 97.3 80 18 114/69 (84) 96 Room Air 97.3 01/24/18 08:35 18 Room Air 01/24/18 07:35 16 Room Air 01/24/18 07:00 97.9 84 18 112/78 (89) 96 Room Air 97.9 01/24/18 05:21 Room Air 01/24/18 04:51 Room Air 01/24/18 03:00 96.7 68 20 96/44 (61) 97 Room Air 96.7 01/24/18 01:43 Room Air 01/24/18 01:25 Room Air 01/24/18 00:55 Room Air 01/23/18 23:00 96.7 64 20 103/63 (76) 96 Room Air 96.7 01/23/18 22:27 Room Air 01/23/18 20:14 Room Air 01/23/18 20:00 Room Air 01/23/18 19:00 96.3 80 20 111/75 (87) 97 Room Air 96.3 01/23/18 17:44 17 Room Air 8/14/18 15:00 97.7 80 20 109/58 (75) 92 Room Air 97.7 01/23/18 13:59 18 Room Air 01/23/18 11:51 17 Room Air 01/23/18 11:00 97.5 77 18 94/65 (75) 95 Room Air 97.5 01/23/18 10:40 17 01/23/18 10:14 19 Room Air 01/23/18 08:00 Room Air 01/23/18 07:35 19 Room Air 01/23/18 07:00 96.6 61 18 102/52 (69) 100 Room Air 96.6 Laboratory Laboratory Laboratory Tests Test 01/23/18 18:17 01/24/18 11:45 Urine Opiates Screen Pos (NEG) Urine Methadone Screen Neg (NEG) Urine Barbiturates Neg (NEG) Urine Phencyclidine Screen Neg (NEG) Urine Amphetamine/Methamphetamine Neg (NEG) Urine Benzodiazepines Screen Neg (NEG) Urine Cocaine Screen Neg (NEG) Urine Cannabinoids Screen Neg (NEG) Urine Ethyl Alcohol Neg (NEG) Free Thyroxine 0.94 ng/dL (0.76-1.46) Free Triiodothyronine (T3) pg/mL 2.58 pg/mL (2.18-3.98) Medication Medications Current Medications Acetaminophen (Tylenol) 650 mg PRN Q6HRS PRN PO HEADACHE/FEVER; Start 01/24/18 at 08:15 Aspirin (Ade Aspirin) 325 mg DAILYWBKFT PO Last administered on 01/24/18at 07: 35; Start 01/23/18 at 16:00 Atorvastatin Calcium (Lipitor) 40 mg QHS PO Last administered on 01/23/18at 20: 06; Start 01/23/18 at 21:00 Diphenhydramine HCl (Benadryl) 25 mg PRN Q6HRS PRN PO ITCHING Last administered on 01/23/18at 17:44; Start 01/23/18 at 17:30 Diphenhydramine HCl (Benadryl) 50 mg PRN Q8HRS PRN IVP ITCHING Last administered on 01/23/18at 20:07; Start 01/23/18 at 19:45 Duloxetine HCl (Cymbalta) 30 mg DAILY PO Last administered on 01/24/18at 08:47; Start 01/24/18 at 09:00 Fentanyl Citrate (Fentanyl 2ml Vial) 75 mcg PRN Q2HRS PRN IV SEVERE PAIN Last administered on 01/24/18at 04:51; Start 01/24/18 at 04:45; Stop 01/24/18 at 08:03 ; Status DC Pantoprazole Sodium (Protonix) 40 mg DAILYAC PO Last administered on 01/24/18at 08:47; Start 01/24/18 at 09:00 Topiramate (Topamax) 25 mg BID PO Last administered on 01/24/18at 07:35; Start 01/23/18 at 21:00 Trazodone HCl (Desyrel) 50 mg QHS PO ; Start 01/24/18 at 21:00 Zinc Acetate/ Diphenhydramine (Benadryl Topical) 1 matthew PRN Q3HRS PRN TP ITCHING Last administered on 01/24/18at 11:49; Start 01/23/18 at 22:15 Comment Review of Relevant I have reviewed the following items lolis (where applicable) has been applied. CONNIE MCGEE MD Jan 24, 2018 14:34
[2018-01-24] MEDS: ACETAMINOPHEN 325 MG TABLET. PO PRN ×2 (18:07→23:23)
[2018-01-24] MEDS: ATORVASTATIN CALCIUM 40 MG TABLET. PO SCH (20:00)
[2018-01-24] MEDS ORDERED: traZODone 50 MG TABLET. PO SCH (21:00)
[2018-01-25] MEDS ORDERED: traMADol 50 MG TABLET PO PRN (00:15)
[2018-01-25] MEDS ORDERED: NITROGLYCERIN SUBLINGUAL 0.4 MG BOTTLE OF 25. SL PRN (00:15)
[2018-01-25 00:17] VITALS: BP 108/67
[2018-01-25 00:27] VITALS: BP 106/60
[2018-01-25] MEDS: fentaNYL PF VIAL 100 MCG/2 ML VIAL IV PRN ×3 (00:32→10:16)
[2018-01-25] MEDS: oxyCODONE IR 5 MG TABLET PO PRN ×2 (02:31→08:30)
[2018-01-25 03:08] VITALS: BP 100/63
--- NOTE | 2018-01-25 06:47 | EKG ---
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
[2018-01-25 07:00] VITALS: BP 122/75
[2018-01-25] MEDS: TOPIRAMATE 25 MG TABLET. PO SCH (08:29)
[2018-01-25] MEDS: PANTOPRAZOLE 40 MG TABLET.DR. PO SCH (08:29)
[2018-01-25] MEDS: DULoxetine HCL 30 MG CAPSULE.DR PO SCH (08:29)
[2018-01-25] MEDS: ASPIRIN 325 MG TABLET PO SCH (08:29)
[2018-01-25] MEDS ORDERED: GADOBUTROL 7.5 MMOL/7.5 ML VIAL IV ONE (09:15)
--- NOTE | 2018-01-25 09:58 | RAD ---
MRI of the brain without contrast 01/25/2018 CLINICAL HISTORY: Severe dizziness with left-sided weakness. TECHNIQUE: After the intravenous administration of 7.5 cc of Gadavist, enhanced T1-weighted sagittal, axial and coronal images of the brain were obtained. FINDINGS: Comparison is made to patient's MRI of the brain dated 01/24/2018. The ventricles and sulci are within normal limits in size and configuration. No area of abnormal contrast enhancement is seen. IMPRESSION: No area of abnormal contrast enhancement is seen. Electronically signed by: Aidan Barkley MD (01/25/2018 9:54 AM) [facility]
[2018-01-25] MEDS: diphenhydrAMINE 50 MG/ML VIAL IVP PRN (10:15)
[2018-01-25 11:00] VITALS: BP 99/62
--- NOTE | 2018-01-25 13:21 | PDOC ---
PROGRESS NOTES History of Present Illness History of Present Illness Assessment/Plan Assessment/Plan ASSESSMENT/PLAN Atypical chest pain: TIA symptoms left arm and leg weakness GERD: on PPI Anxiety with hx of panic attack . Family hx of premature CAD: father [place] at 38 HLP MORBID Obesity PLAN Consult neurology. Stress echo ok Dietitian consult WT LOSS. 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 PHYSICIAN: CONNIE MCGEE MD REASON: Persistent left side face, UE and LE numbness and weakness. PROCEDURE: BRAIN W/CONTRAST MRI of the brain without contrast 01/25/2018 CLINICAL HISTORY: Severe dizziness with left-sided weakness. TECHNIQUE: After the intravenous administration of 7.5 cc of Gadavist, enhanced T1-weighted sagittal, axial and coronal images of the brain were obtained. FINDINGS: Comparison is made to patient's MRI of the brain dated 01/24/2018. The ventricles and sulci are within normal limits in size and configuration. No area of abnormal contrast enhancement is seen. IMPRESSION: No area of abnormal contrast enhancement is seen. Electronically signed by: Aidan Barkley MD (01/25/2018 9:54 AM) [facility] Findings: The common, internal and external carotid arteries were examined by grayscale, color and spectral Doppler ultrasound. Mild atherosclerotic plaquing is noted in the carotid bulbs. No high-grade visual stenosis is identified color Doppler imaging. Flow in the vertebral arteries is antegrade bilaterally. The following are the velocities and ratios in the carotid arteries on both sides: RIGHT ICA PV: 82cm/sec RIGHT CCA PV: 91cm/sec RIGHT ICA ED: 37cm/sec RIGHT IC/CCPV: Less than 2 RIGHT VERTEBRAL: antegrade flow LEFT ICA PV: 103cm/sec LEFT CCA PV: 107cm/sec LEFT ICA ED: 42cm/sec LEFT IC/CCPV: Less than 2 LEFT VERTEBRAL: antegrade flow <50% ICA Stenosis: PSV < 125cm/s (EDV < 40cm/s; SVR < 2.0) 50-69% ICA Stenosis: PSV < 125-229cm/s (EDV 40-99cm/s; SVR 2.0-3.9) >70% ICA Stenosis: PSV > 230cm/s (EDV >100cm/s; SVR >4.0) Impression: Mildly elevated end-diastolic velocity within the left internal carotid artery. By velocity criteria alone finding suggests a 50-69 percent stenosis. Given lack of other evidence of significant stenosis, findings felt to most likely be artifactual. If clinical concern persists consider CT angiography of the neck. Electronically signed by: Rajesh August MD (01/23/2018 1:34 PM) [facility] Assessment and Plan Assessmemt and Plan Problems Medical Problems: (1) Other chest pain Status: Acute Comment Review of Relevant I have reviewed the following items lolis (where applicable) has been applied. Labs Laboratory Tests Test 01/23/18 18:17 01/24/18 11:45 Urine Opiates Screen Pos (NEG) Urine Methadone Screen Neg (NEG) Urine Barbiturates Neg (NEG) Urine Phencyclidine Screen Neg (NEG) Urine Amphetamine/Methamphetamine Neg (NEG) Urine Benzodiazepines Screen Neg (NEG) Urine Cocaine Screen Neg (NEG) Urine Cannabinoids Screen Neg (NEG) Urine Ethyl Alcohol Neg (NEG) Free Thyroxine 0.94 ng/dL (0.76-1.46) Free Triiodothyronine (T3) pg/mL 2.58 pg/mL (2.18-3.98) Medications Current Medications Fentanyl Citrate (Fentanyl 2ml Vial) 75 mcg 1X ONCE IV Last administered on at 01:05; Start 01/23/18 at 01:00; Stop 01/23/18 at 01:01; Status DC Sodium Chloride 1,000 ml @ 1,000 mls/hr 1X ONCE IV Last administered on at 01:30; Start 01/23/18 at 01:30; Stop 01/23/18 at 02:29; Status DC Fentanyl Citrate (Fentanyl 2ml Vial) 75 mcg 1X ONCE IV Last administered on at 02:00; Start 01/23/18 at 02:00; Stop 01/23/18 at 02:01; Status DC Iohexol (Omnipaque 300 Mg/ml) 75 ml 1X ONCE IV ; Start 01/23/18 at 02:15; Stop 01/23/18 at 02:16; Status DC Info (CONTRAST GIVEN -- Rx MONITORING) 1 each PRN DAILY PRN MC SEE COMMENTS; Start 01/23/18 at 02:15; Stop 01/25/18 at 02:14; Status DC Diphenhydramine HCl (Benadryl) 25 mg 1X ONCE IVP Last administered on at 02:15; Start 01/23/18 at 02:15; Stop 01/23/18 at 02:57; Status DC Ketorolac Tromethamine (Toradol) 30 mg 1X ONCE IV Last administered on at 03:13; Start 01/23/18 at 03:15; Stop 01/23/18 at 03:16; Status DC Fentanyl Citrate (Fentanyl 2ml Vial) 75 mcg 1X ONCE IV Last administered on at 03:41; Start 01/23/18 at 03:30; Stop 01/23/18 at 03:31; Status DC Ondansetron HCl (Zofran) 4 mg PRN Q8HRS PRN IV NAUSEA/VOMITING Last administered on 01/23/18at 07:41; Start 01/23/18 at 03:45; Stop 01/24/18 at 03:44 ; Status DC Fentanyl Citrate (Fentanyl 2ml Vial) 75 mcg PRN Q2HR PRN IV pain unrelieved by other meds Last administered on 01/24/18at 00:55; Start 01/23/18 at 03:45; Stop 01/24/18 at 03:44; Status DC Acetaminophen (Tylenol) 650 mg PRN Q4HRS PRN PO FEVER; Start 01/23/18 at 03:45 ; Stop 01/24/18 at 03:44; Status DC Oxycodone HCl (Roxicodone) 10 mg PRN Q6HRS PRN PO pain not relieved by tylenol Last administered on 01/25/18 08:30; Start 01/23/18 at 03:45 Diphenhydramine HCl (Benadryl) 25 mg 1X ONCE IVP Last administered on 04:57; Start 01/23/18 at 05:00; Stop 01/23/18 at 05:01; Status DC Iohexol (Omnipaque 300 Mg/ml) 100 ml STK-MED ONCE .ROUTE ; Start 01/23/18 at 06: 46; Stop 01/23/18 at 06:49; Status DC Atorvastatin Calcium (Lipitor) 40 mg QHS PO Last administered on 01/24/18 20: 00; Start 01/23/18 at 21:00 Aspirin (Ade Aspirin) 325 mg DAILYWBKFT PO Last administered on 01/25/18 08: 29; Start 01/23/18 at 16:00 Diphenhydramine HCl (Benadryl) 25 mg PRN Q6HRS PRN PO ITCHING Last administered on 01/23/18at 17:44; Start 01/23/18 at 17:30 Topiramate (Topamax) 25 mg BID PO Last administered on 01/25/18 08:29; Start 01/23/18 at 21:00 Diphenhydramine HCl (Benadryl) 50 mg PRN Q8HRS PRN IVP ITCHING Last administered on 01/25/18at 10:15; Start 01/23/18 at 19:45 Zinc Acetate/ Diphenhydramine (Benadryl Topical) 1 matthew PRN Q3HRS PRN TP ITCHING Last administered on 01/24/18 20:00; Start 01/23/18 at 22:15 Fentanyl Citrate (Fentanyl 2ml Vial) 75 mcg PRN Q2HRS PRN IV SEVERE PAIN Last administered on 01/24/18 04:51; Start 01/24/18 at 04:45; Stop 01/24/18 at 08:03 ; Status DC Acetaminophen (Tylenol) 650 mg PRN Q6HRS PRN PO HEADACHE/FEVER Last administered on 01/24/18 23:23; Start 01/24/18 at 08:15 Duloxetine HCl (Cymbalta) 30 mg DAILY PO Last administered on 01/25/18at 08:29; Start 01/24/18 at 09:00 Pantoprazole Sodium (Protonix) 40 mg DAILYAC PO Last administered on 01/25/18at 08:29; Start 01/24/18 at 09:00 Trazodone HCl (Desyrel) 50 mg QHS PO Last administered on 01/24/18at 20:00; Start 01/24/18 at 21:00 Nitroglycerin (Nitrostat) 0.4 mg PRN Q5MIN PRN SL CHEST PAIN Last administered on 01/25/18at 00:21; Start 01/25/18 at 00:15 Tramadol HCl (Ultram) 50 mg PRN Q6HRS PRN PO MODERATE PAIN; Start 01/25/18 at 00:15 Fentanyl Citrate (Fentanyl 2ml Vial) 25 mcg PRN Q2HR PRN IV SEVERE PAIN Last administered on 01/25/18at 10:16; Start 01/25/18 at 00:15 Gadobutrol (Gadavist) 7.5 mmol 1X ONCE IV Last administered on 01/25/18at 09:22 ; Start 01/25/18 at 09:15; Stop 01/25/18 at 09:16; Status DC Active Scripts Active Hydrocodone-Apap 7.5-325 (Hydrocodone Bit/Acetaminophen) 1 Each Tablet 1 Tab PO PRN Q4HRS PRN Trazodone Hcl 50 Mg Tablet 1 Tab PO QHS Miralax (Polyethylene Glycol 3350) 17 Gm Powd.pack 17 Gm PO BID Reported Duloxetine Hcl 30 Mg Capsule. 30 Mg PO DAILY Protonix (Pantoprazole Sodium) 40 Mg Tablet. 1 Tab PO DAILY Vitals/I & O Vital Sign - Last 24 Hours 01/24/18 01/24/18 01/24/18 01/24/18 14:02 15:00 19:15 20:00 Temp 97.5 97.6 97.5 97.6 Pulse 71 62 Resp 6 16 18 B/P (MAP) 121/75 (90) 109/61 (77) Pulse Ox 98 100 O2 Delivery Room Air Room Air Room Air Room Air 01/24/18 01/24/18 01/24/18 01/24/18 20:00 23:40 23:47 23:56 Temp 97.9 96.6 97.9 96.6 Pulse 72 84 74 Resp 18 18 18 B/P (MAP) 104/76 (85) 154/88 (110) 124/74 (91) Pulse Ox 97 100 100 O2 Delivery Room Air Room Air Nasal Cannula Nasal Cannula O2 Flow Rate 2.0 2.0 01/25/18 01/25/18 01/25/18 01/25/18 00:17 00:21 00:27 00:32 Pulse 71 72 Resp 18 16 B/P (MAP) 108/67 (81) 108/67 106/60 (75) Pulse Ox 97 98 O2 Delivery Nasal Cannula Nasal Cannula Nasal Cannula O2 Flow Rate 2.0 2.0 2.0 01/25/18 01/25/18 01/25/18 01/25/18 01:02 02:31 03:08 03:31 Temp 97.9 97.9 Pulse 65 Resp 18 B/P (MAP) 100/63 (75) Pulse Ox 99 O2 Delivery Nasal Cannula Room Air O2 Flow Rate 2.0 2.0 2.0 01/25/18 01/25/18 01/25/18 01/25/18 06:49 07:00 08:30 09:30 Temp 97.7 97.7 Pulse 68 Resp 18 20 18 B/P (MAP) 122/75 (91) Pulse Ox 100 100 O2 Delivery Room Air Room Air Room Air Room Air 01/25/18 01/25/18 01/25/18 10:16 10:46 11:00 Temp 97.7 97.7 Pulse 64 Resp 18 18 18 B/P (MAP) 99/62 (74) Pulse Ox 100 97 97 O2 Delivery Room Air Room Air Room Air Intake and Output 01/24/18 01/24/18 01/25/18 15:00 23:00 07:00 Intake Total 1000 ml 300 ml Balance 1000 ml 300 ml JOSE ZHAO MD Jan 25, 2018 13:21
[2018-01-25] MEDS ORDERED: SIMV20TA PO (15:16)
[2018-01-25] MEDS ORDERED: ASPI325T11 PO (15:18)
--- NOTE | 2018-01-25 15:40 | PDOC3 ---
Discharge Summary Date of Admission: Jan 23, 2018 Date of Discharge: Jan 25, 2018 Follow-Up: 3-5 days Admitting Diagnosis comment: discharge diagnosis History of Present Illness Assessment/Plan Assessment/Plan ASSESSMENT/PLAN Atypical chest pain: TIA symptoms left arm and leg weakness GERD: on PPI Anxiety with hx of panic attack . Family hx of premature CAD: father [place] at 38 HLP MORBID Obesity PLAN Consult neurology. Stress echo ok Dietitian consult WT LOSS. mri head and dopplers of carotids ok protein c and s activity leiden factor 5 assay consult cardiology re possible SAILAJA asa 325mg po daily PT EVAL pt refused to stay for mri c/s, insists on leaving today now FINAL DIAGNOSIS Problems Medical Problems: (1) Other chest pain Status: Acute Brief Hospital Course Ms. Cline is a 37 old [sex] who presented with [chest pain ] CONDITION AT DISCHARGE: Improved Discharge Medications Current Medications Fentanyl Citrate (Fentanyl 2ml Vial) 75 mcg 1X ONCE IV Last administered on at 01:05; Start 01/23/18 at 01:00; Stop 01/23/18 at 01:01; Status DC Sodium Chloride 1,000 ml @ 1,000 mls/hr 1X ONCE IV Last administered on at 01:30; Start 01/23/18 at 01:30; Stop 01/23/18 at 02:29; Status DC Fentanyl Citrate (Fentanyl 2ml Vial) 75 mcg 1X ONCE IV Last administered on at 02:00; Start 01/23/18 at 02:00; Stop 01/23/18 at 02:01; Status DC Iohexol (Omnipaque 300 Mg/ml) 75 ml 1X ONCE IV ; Start 01/23/18 at 02:15; Stop 01/23/18 at 02:16; Status DC Info (CONTRAST GIVEN -- Rx MONITORING) 1 each PRN DAILY PRN MC SEE COMMENTS; Start 01/23/18 at 02:15; Stop 01/25/18 at 02:14; Status DC Diphenhydramine HCl (Benadryl) 25 mg 1X ONCE IVP Last administered on at 02:15; Start 01/23/18 at 02:15; Stop 01/23/18 at 02:57; Status DC Ketorolac Tromethamine (Toradol) 30 mg 1X ONCE IV Last administered on at 03:13; Start 01/23/18 at 03:15; Stop 01/23/18 at 03:16; Status DC Fentanyl Citrate (Fentanyl 2ml Vial) 75 mcg 1X ONCE IV Last administered on at 03:41; Start 01/23/18 at 03:30; Stop 01/23/18 at 03:31; Status DC Ondansetron HCl (Zofran) 4 mg PRN Q8HRS PRN IV NAUSEA/VOMITING Last administered on 01/23/18at 07:41; Start 01/23/18 at 03:45; Stop 01/24/18 at 03:44 ; Status DC Fentanyl Citrate (Fentanyl 2ml Vial) 75 mcg PRN Q2HR PRN IV pain unrelieved by other meds Last administered on 01/24/18at 00:55; Start 01/23/18 at 03:45; Stop 01/24/18 at 03:44; Status DC Acetaminophen (Tylenol) 650 mg PRN Q4HRS PRN PO FEVER; Start 01/23/18 at 03:45 ; Stop 01/24/18 at 03:44; Status DC Oxycodone HCl (Roxicodone) 10 mg PRN Q6HRS PRN PO pain not relieved by tylenol Last administered on 01/25/18at 08:30; Start 01/23/18 at 03:45 Diphenhydramine HCl (Benadryl) 25 mg 1X ONCE IVP Last administered on at 04:57; Start 01/23/18 at 05:00; Stop 01/23/18 at 05:01; Status DC Iohexol (Omnipaque 300 Mg/ml) 100 ml STK-MED ONCE .ROUTE ; Start 01/23/18 at 06: 46; Stop 01/23/18 at 06:49; Status DC Atorvastatin Calcium (Lipitor) 40 mg QHS PO Last administered on 01/24/18at 20: 00; Start 01/23/18 at 21:00 Aspirin (Ade Aspirin) 325 mg DAILYWBKFT PO Last administered on 01/25/18at 08: 29; Start 01/23/18 at 16:00 Diphenhydramine HCl (Benadryl) 25 mg PRN Q6HRS PRN PO ITCHING Last administered on 01/23/18 17:44; Start 01/23/18 at 17:30 Topiramate (Topamax) 25 mg BID PO Last administered on 01/25/18 08:29; Start 01/23/18 at 21:00 Diphenhydramine HCl (Benadryl) 50 mg PRN Q8HRS PRN IVP ITCHING Last administered on 01/25/18 10:15; Start 01/23/18 at 19:45 Zinc Acetate/ Diphenhydramine (Benadryl Topical) 1 matthew PRN Q3HRS PRN TP ITCHING Last administered on 01/24/18 20:00; Start 01/23/18 at 22:15 Fentanyl Citrate (Fentanyl 2ml Vial) 75 mcg PRN Q2HRS PRN IV SEVERE PAIN Last administered on 01/24/18 04:51; Start 01/24/18 at 04:45; Stop 01/24/18 at 08:03 ; Status DC Acetaminophen (Tylenol) 650 mg PRN Q6HRS PRN PO HEADACHE/FEVER Last administered on 01/24/18 23:23; Start 01/24/18 at 08:15 Duloxetine HCl (Cymbalta) 30 mg DAILY PO Last administered on 01/25/18 08:29; Start 01/24/18 at 09:00 Pantoprazole Sodium (Protonix) 40 mg DAILYAC PO Last administered on 01/25/18 08:29; Start 01/24/18 at 09:00 Trazodone HCl (Desyrel) 50 mg QHS PO Last administered on 01/24/18 20:00; Start 01/24/18 at 21:00 Nitroglycerin (Nitrostat) 0.4 mg PRN Q5MIN PRN SL CHEST PAIN Last administered on 01/25/18 00:21; Start 01/25/18 at 00:15 Tramadol HCl (Ultram) 50 mg PRN Q6HRS PRN PO MODERATE PAIN; Start 01/25/18 at 00:15 Fentanyl Citrate (Fentanyl 2ml Vial) 25 mcg PRN Q2HR PRN IV SEVERE PAIN Last administered on 01/25/18 10:16; Start 01/25/18 at 00:15 Gadobutrol (Gadavist) 7.5 mmol 1X ONCE IV Last administered on 01/25/18at 09:22 ; Start 01/25/18 at 09:15; Stop 01/25/18 at 09:16; Status DC Active Scripts Active Hydrocodone-Apap 7.5-325 (Hydrocodone Bit/Acetaminophen) 1 Each Tablet 1 Tab PO PRN Q4HRS PRN Trazodone Hcl 50 Mg Tablet 1 Tab PO QHS Miralax (Polyethylene Glycol 3350) 17 Gm Powd.pack 17 Gm PO BID Reported Aspirin Ec (Aspirin) 325 Mg Tablet.dr 1 Tab PO DAILY Zocor (Simvastatin) 20 Mg Tablet 1 Tab PO QHS Duloxetine Hcl 30 Mg Capsule.dr 30 Mg PO DAILY Protonix (Pantoprazole Sodium) 40 Mg Tablet.dr 1 Tab PO DAILY Vital Signs Vital Signs Date Time Temp Pulse Resp B/P (MAP) Pulse Ox O2 Delivery O2 Flow Rate FiO2 01/25/18 11:00 97.7 64 18 99/62 (74) 97 Room Air 97.7 01/25/18 03:31 2.0 Labs Laboratory Tests Test 01/23/18 18:17 01/24/18 11:45 Urine Opiates Screen Pos (NEG) Urine Methadone Screen Neg (NEG) Urine Barbiturates Neg (NEG) Urine Phencyclidine Screen Neg (NEG) Urine Amphetamine/Methamphetamine Neg (NEG) Urine Benzodiazepines Screen Neg (NEG) Urine Cocaine Screen Neg (NEG) Urine Cannabinoids Screen Neg (NEG) Urine Ethyl Alcohol Neg (NEG) Free Thyroxine 0.94 ng/dL (0.76-1.46) Free Triiodothyronine (T3) pg/mL 2.58 pg/mL (2.18-3.98) Allergies Allergies Coded Allergies Type Severity Reaction Last Updated Verified morphine Allergy Severe Shortness of Air 01/25/16 Yes Disposition/Orders: D/C to Home JOSE ZHAO MD Jan 25, 2018 15:40
--- NOTE | 2018-01-25 15:42 | DISCH ---
DISCHARGE INSTRUCTIONS Condition on Discharge Condition on Discharge: Stable Activity After Discharge Activity Instructions for Disc: Activity as tolerated Bathing Instructions: Shower-keep dressing dry, No Tub Bath until see Lifting Instructions after Dis: No heavy lifting, No pulling or pushing, Do not lift >10 pounds Exercise Instruction after Dis: Walk 10 min, 3 x per day Driving Instructions after Dis: Do not drive today Weight Bearing Status after Di: As tolerated Diet after Discharge Diet after Discharge: Low Fat Wound Incision Care Wound/Incision Care: Keep wound/cast CDI Contacting the DRNed after DC Call your doctor for: If your condition worsens Treatment/Equipment after DC Adaptive Equipment Issued: None JOSE ZHAO MD Jan 25, 2018 15:41
--- NOTE | 2018-01-25 17:27 | PDOC ---
PROGRESS NOTES Assessment Assessment Chest pain. Headaches. Left side face, UE and LE numbness, tingling, and weakness. HLD. GERD. Anxiety. Carotid A stenosis. Obesity. No evidence of acute CVA this time. RECOMMENDATIONS/PLAN: ASA 325 mg daily. Topamax 25 mg bid. Lipitor 40 mg HS. Cervical spine MRI w/o contrast. Treat medical diseases. HCT on 01/23: Negative. Brain MRI w/o contrast on 01/24: Negative. HISTORY OF THE PRESENT ILLNESS: 37-y-old female patient with above medical diseases came to the ER of [facility] with complaints of chest pain. She was admitted for further evaluation. After on the floor, she stated had symptoms of left side facial and extremities numbness, tingling, and weakness. Neurology was requested for consultation due to her CVA like symptoms. She stated on 01/25/18 she still had numbness and weakness in her left side face , UE and LE. 2 MRIs negative for CVA. PAST MEDICAL HISTORY Past Medical History Cardiovascular: No pertinent hx Pulmonary: No pertinent hx GI: GERD Heme/Onc: No pertinent hx Hepatobiliary: No pertinent hx Psych: Anxiety Rheumatologic: No pertinent hx Infectious disease: No pertinent hx ENT: No pertinent hx Renal/: No pertinent hx Endocrine: No pertinent hx Dermatology: No pertinent hx PAST SURGICAL HISTORY Cholecystectomy, Appendectomy, Tonsillectomy, Hysterectomy FAMILY HISTORY Coronary Artery Disease (father- ID at age 35, multiple stents), Hypertension SOCIAL HISTORY Social History Smoke: No ALCOHOL: none Drugs: None Lives: with Family ALLERGIES: Morphine (Verified Allergy, Severe, Shortness of Air, 01/25/16) MEDICATIONS: Refer to [facility] REVIEW OF SYSTEMS: Constitutional: No malnutrition, weight loss, cachexia. Head: No traumatic brain or head injury. Skin: No edema, or rash. Ear: No infection, tinnitus. Eyes: No vision loss or color blindness. Nose: No bleeding or purulent discharges. Hearing: No hearing decrease. Neck: No injury. Breast: No history of cancer, masses,or discharges. Cardiac: HLD. Pulmonary: No pneumonia, COPD. GI: No GI ulcer, GI bleeding. Urinary/genital: UTI. Endocrinologic: Obesity. Skeletomuscular: No muscular atrophy, deformity. Neurological: see HP. Psychiatric: Denies drug use/abuse. Otherwise, not [id number] review of systems. PHYSICAL EXAMINATION: General appearance is in anxiety. HEENT: Normocephalic and nontraumatic. Eyes, nose, ears, and throat are unremarkable. Neck is supple. No lymphadenopathy. No crepitus. Cardiovascular: S1, S2, regular rate and rhythm. Pulmonary: Clear to auscultation bilaterally. Abdomen: Bowel sounds are positive. Abdomen is soft, nontender, and nondistended. Extremities: No rash, lesions, or edema. No restriction of range of motion NEUROLOGICAL EXAMINATION: Alert Oriented to time, place and person. PERRL. EOMI. CN: no focal findings. Muscle tone: within normal. Muscle strength: 5 DTR: 2 Plantar reflex: Flexor response bilaterally Gait: not examined in bed. Sensory exam: no abnormal findings. No cerebellar signs elicited. F-T-N test accurate. Objective Objective Vital Signs Date Time Temp Pulse Resp B/P (MAP) Pulse Ox O2 Delivery O2 Flow Rate FiO2 01/25/18 11:00 97.7 64 18 99/62 (74) 97 Room Air 97.7 01/25/18 03:31 2.0 Intake and Output 01/25/18 07:00 Intake Total 1300 ml Balance 1300 ml Intake Oral 1300 ml # Voids 4 Vitals Signs Vitals VS - Last 72 Hours, by Label Date Time Temp Pulse Resp B/P (MAP) Pulse Ox O2 Delivery O2 Flow Rate FiO2 01/25/18 11:00 97.7 64 18 99/62 (74) 97 Room Air 97.7 01/25/18 10:46 18 97 Room Air 01/25/18 10:16 18 100 Room Air 01/25/18 09:30 18 100 Room Air 01/25/18 08:30 20 Room Air 01/25/18 07:00 97.7 68 18 122/75 (91) 100 Room Air 97.7 01/25/18 06:49 Room Air 01/25/18 03:31 2.0 01/25/18 03:08 97.9 65 18 100/63 (75) 99 Room Air 97.9 01/25/18 02:31 Nasal Cannula 2.0 01/25/18 01:02 2.0 01/25/18 00:32 Nasal Cannula 2.0 01/25/18 00:27 72 16 106/60 (75) 98 Nasal Cannula 2.0 01/25/18 00:21 108/67 01/25/18 00:17 71 18 108/67 (81) 97 Nasal Cannula 2.0 01/24/18 23:56 74 18 124/74 (91) 100 Nasal Cannula 2.0 01/24/18 23:47 96.6 84 18 154/88 (110) 100 Nasal Cannula 2.0 96.6 01/24/18 23:40 97.9 72 18 104/76 (85) 97 Room Air 97.9 01/24/18 20:00 Room Air 01/24/18 20:00 Room Air 01/24/18 19:15 97.6 62 18 109/61 (77) 100 Room Air 97.6 01/24/18 15:00 97.5 71 16 121/75 (90) 98 Room Air 97.5 01/24/18 14:02 6 Room Air 01/24/18 11:06 97.3 80 18 114/69 (84) 96 Room Air 97.3 01/24/18 07:35 16 Room Air 01/24/18 07:00 97.9 84 18 112/78 (89) 96 Room Air 97.9 Medication Medications Current Medications Fentanyl Citrate (Fentanyl 2ml Vial) 25 mcg PRN Q2HR PRN IV SEVERE PAIN Last administered on 01/25/18at 10:16; Start 01/25/18 at 00:15 Gadobutrol (Gadavist) 7.5 mmol 1X ONCE IV Last administered on 01/25/18at 09:22 ; Start 01/25/18 at 09:15; Stop 01/25/18 at 09:16; Status DC Nitroglycerin (Nitrostat) 0.4 mg PRN Q5MIN PRN SL CHEST PAIN Last administered on 01/25/18at 00:21; Start 01/25/18 at 00:15 Tramadol HCl (Ultram) 50 mg PRN Q6HRS PRN PO MODERATE PAIN; Start 01/25/18 at 00:15 Trazodone HCl (Desyrel) 50 mg QHS PO Last administered on 01/24/18at 20:00; Start 01/24/18 at 21:00 Comment Review of Relevant I have reviewed the following items lolis (where applicable) has been applied. CONNIE MCGEE MD Jan 25, 2018 17:27
[2018-01-26 18:14] LABS: ANA INTERP Negative (.)
[2018-01-28 07:53] LABS: PROTEIN C ACTIVITY SEE SEPARATE REPORT; PROTEIN S ACTIVITY SEE SEPARATE REPORT
== END 2018-01-25 15:50 | disposition home or self-care (01) | DRG 392 ==
LOC: ER 00:20 → 6 SOUTH 03:30 → ER 05:48 → OBSVTOIN 01-24 16:55
PROVIDERS: ADMIT Internal Medicine; ATTEND Internal Medicine
DX: K21.9 Gastro-esophageal reflux disease without esophagitis (principal); G45.9 Transient cerebral ischemic attack, unspecified; R07.89 Other chest pain; F41.0 Panic disorder [episodic paroxysmal anxiety]; E66.01 Morbid (severe) obesity due to excess calories; E78.5 Hyperlipidemia, unspecified; E88.81 Metabolic syndrome and other insulin resistance; R20.0 Anesthesia of skin; R20.2 Paresthesia of skin; R51 Headache; I65.29 Occlusion and stenosis of unspecified carotid artery; Z68.33 Body mass index [BMI] 33.0-33.9, adult; Z82.49 Family history of ischemic heart disease and other diseases of the circulatory system; Z90.49 Acquired absence of other specified parts of digestive tract; Z90.710 Acquired absence of both cervix and uterus; Z90.89 Acquired absence of other organs; Z88.6 Allergy status to analgesic agent; Z79.899 Other long term (current) drug therapy
CPT/HCPCS: 36415; 70450; 70551; 70552; 71275; 80048; 80061; 80307; 82962; 84439; 84443; 84481; 84484; 85025; 85220; 85302; 85306; 85379; 85610; 85651; 85730; 86038; 93005; 93017; 93350; 93880; 96361; 96374; 96375; 96376; A9585; G0378; G0379; J1200; J1885; J2405; J3010; J7030; Q0163; 99285-25; G0479

== ENCOUNTER 2018-08-18 17:43 | Inpatient (IN) | payer OTHER ==
[~2018-08-18] VITALS: Ht 162.6 cm; Wt 86.2 kg
[~2018-08-18 17:43] MED LIST changes: +ASPI325T11 PO; +DULO30CA43 PO; -HYDR-2762 PO; +HYDR-2765 PO; +SIMV20TA PO; +TRAZ-118 PO; -TRAZ-85 PO
[2018-08-18 18:40] LABS: BASO # 0.1 x10^3/uL (0.0-0.2); BASO % 1 % (0-3); EOS % 0 % (0-3); HEMATOCRIT 42.8 % (36.0-47.0); HEMOGLOBIN 14.2 g/dL (12.0-15.5); LYMPH # 1.1 x10^3/uL (1.0-4.8); LYMPH % 10 % (24-48); MEAN CORPUSCULAR HEMOGLOBIN 28 pg (25-35); MEAN CORPUSCULAR HGB CONC 33 g/dL (31-37); MEAN CORPUSCULAR VOLUME 86 fL (79-100); MONO # 0.2 x10^3/uL (0.0-1.1); MONO % 2 % (0-9); NEUT # 10.1 x10^3uL (1.8-7.7); NEUT % 88 % (31-73); PLATELET COUNT 363 x10^3/uL (140-400); RED CELL DISTRIBUTION WIDTH 14.5 % (11.5-14.5); WHITE BLOOD COUNT 11.4 x10^3/uL (4.0-11.0)
[2018-08-18 18:42] LABS: BILIRUBIN,URINE NEGATIVE (NEG); CLARITY,URINE CLEAR; COLOR,URINE YELLOW; NITRITE,URINE NEGATIVE (NEG); PH,URINE 6.5; PROTEIN,URINE NEGATIVE (NEG-TRACE); UROBILINOGEN,URINE 0.2 mg/dL (0.2 mg/dL)
[2018-08-18 18:49] LABS: BACTERIA,URINE FEW /HPF (0-FEW); RBC,URINE OCC /HPF (0-2); WBC,URINE 0 /HPF (0-4)
[2018-08-18 18:49] LABS: CALCIUM 9.8 mg/dL (8.5-10.1); CREATININE 1.1 mg/dL (0.6-1.0); GFR 55.3; POTASSIUM 4.3 mmol/L (3.5-5.1)
[2018-08-18 18:50] LABS: PROTHROMBIN TIME PATIENT 12.3 SEC (11.7-14.0)
[2018-08-18 18:50] LABS: SQUAMOUS EPITHELIAL CELL,UR MOD /LPF
--- NOTE | 2018-08-18 18:54 | PHYS DOC ---
Past Medical History Past Medical History: Anxiety, GERD Additional Past Medical Histor: "panic attacks" (LEW HERRERA HOUSE SERVANT) Past Surgical History: Appendectomy, Cholecystectomy, Hysterectomy, Tonsillectomy Additional Past Surgical Histo: PARTIAL HYSTERECTOMY FROM LARGE CYST, ECTOPIC PG (LEW HERRERA HOUSE SERVANT) Alcohol Use: Occasionally Drug Use: None (LEW HERRERA APRN) Adult General Chief Complaint Chief Complaint: HEADACHE HPI HPI Patient is a 38 year old female who presents with 8 days of visual changes such as seen only shadows" vision, numbness to the right arm and now she states she's hard time finding words. Patient states 8 days ago when she began seeing shadows" vision she went to the urgent care and they stated that her pressures and her eyes were elevated. Patient states she saw a running rigger and was told her eyes were fine. (LEW HERRERA HOUSE SERVANT) Review of Systems Review of Systems Constitutional: Denies fever or chills [] Eyes: Shadow vision, double vision, change in visual acuity, denies redness, or eye pain [] HENT: Denies nasal congestion or sore throat [] Respiratory: Denies cough or shortness of breath [] Cardiovascular: No additional information not addressed in HPI [] GI: Denies abdominal pain, nausea, vomiting, bloody stools or diarrhea [] : Denies dysuria or hematuria [] Musculoskeletal: Denies back pain or joint pain [] Integument: Denies rash or skin lesions [] Neurologic: Frontal headache, denies focal weakness or Right arm sensory changes [] All other systems were reviewed and found to be within normal limits, except as documented in this note. (LEW HERRERA HOUSE SERVANT) Allergies Allergies Allergies Coded Allergies Type Severity Reaction Last Updated Verified morphine Allergy Severe Shortness of Air 01/25/16 Yes (ELOISA PICKARD MD) Physical Exam Physical Exam Constitutional: Well developed, well nourished, no acute distress, non-toxic appearance. [] HENT: Normocephalic, atraumatic, bilateral external ears normal, oropharynx moist, no oral exudates, nose normal. [] Eyes: PERRLA, EOMI, conjunctiva normal, no discharge. Patient states when she looks up it hurts her eyes. [] Neck: Normal range of motion, no tenderness, supple, no stridor. [] Cardiovascular:Heart rate regular rhythm, no murmur [] Lungs & Thorax: Bilateral breath sounds clear to auscultation [] Abdomen: Bowel sounds normal, soft, no tenderness, no masses, no pulsatile masses. [] Skin: Warm, dry, no erythema, no rash. [] Back: No tenderness, no CVA tenderness. [] Extremities: No tenderness, no cyanosis, no clubbing, ROM intact, no edema. [] Neurologic: Alert and oriented X 3, normal motor function, normal sensory function, no focal deficits noted. See NIH scale.[] Psychologic: Affect normal, judgement normal, mood normal. [] (LEW HERRERA APRN) Current Patient Data Vital Signs Vital Signs Date Time Temp Pulse Resp B/P (MAP) Pulse Ox O2 Delivery O2 Flow Rate FiO2 08/18/18 19:24 76 96 08/18/18 18:01 98.6 22 138/91 (107) Room Air 98.6 (ELOISA PICKARD MD) Lab Values Laboratory Tests Test 08/18/18 17:56 08/18/18 18:07 Urine Collection Type Unknown Urine Color Yellow Urine Clarity Clear Urine pH 6.5 Urine Specific [place] 1.020 Urine Protein Negative mg/dL (NEG-TRACE) Urine Glucose (UA) Negative mg/dL (NEG) Urine Ketones (Stick) Negative mg/dL (NEG) Urine Blood Negative (NEG) Urine Nitrite Negative (NEG) Urine Bilirubin Negative (NEG) Urine Urobilinogen Dipstick 0.2 mg/dL (0.2 mg/dL) Urine Leukocyte Esterase Negative (NEG) Urine RBC Occ /HPF (0-2) Urine WBC 0 /HPF (0-4) Urine Squamous Epithelial Cells Mod /LPF Urine Bacteria Few /HPF (0-FEW) Urine Mucus Mod /LPF POC Urine HCG, Qualitative Hcg negative (Negative) White Blood Count 11.4 x10^3/uL (4.0-11.0) H Red Blood Count 5.00 x10^6/uL (3.50-5.40) Hemoglobin 14.2 g/dL (12.0-15.5) Hematocrit 42.8 % (36.0-47.0) Mean Corpuscular Volume 86 fL (79-100) Mean Corpuscular Hemoglobin 28 pg (25-35) Mean Corpuscular Hemoglobin Concent 33 g/dL (31-37) Red Cell Distribution Width 14.5 % (11.5-14.5) Platelet Count 363 x10^3/uL (140-400) Neutrophils (%) (Auto) 88 % (31-73) H Lymphocytes (%) (Auto) 10 % (24-48) L Monocytes (%) (Auto) 2 % (0-9) Eosinophils (%) (Auto) 0 % (0-3) Basophils (%) (Auto) 1 % (0-3) Neutrophils # (Auto) 10.1 x10^3uL (1.8-7.7) H Lymphocytes # (Auto) 1.1 x10^3/uL (1.0-4.8) Monocytes # (Auto) 0.2 x10^3/uL (0.0-1.1) Eosinophils # (Auto) 0.0 x10^3/uL (0.0-0.7) Basophils # (Auto) 0.1 x10^3/uL (0.0-0.2) Segmented Neutrophils % 82 % (35-66) H Band Neutrophils % 2 % (0-9) Lymphocytes % 12 % (24-48) L Monocytes % 4 % (0-10) Platelet Estimate Adequate (ADEQUATE) Prothrombin Time 12.3 SEC (11.7-14.0) Prothrombin Time INR 0.9 (0.8-1.1) Sodium Level 142 mmol/L (136-145) Potassium Level 4.3 mmol/L (3.5-5.1) Chloride Level 101 mmol/L (98-107) Carbon Dioxide Level 30 mmol/L (21-32) Anion Gap 11 (6-14) Blood Urea Nitrogen 22 mg/dL (7-20) H Creatinine 1.1 mg/dL (0.6-1.0) H Estimated GFR (Cockcroft-Gault) 55.3 BUN/Creatinine Ratio 20 (6-20) Glucose Level 154 mg/dL (70-99) H Calcium Level 9.8 mg/dL (8.5-10.1) Total Bilirubin 0.4 mg/dL (0.2-1.0) Aspartate Amino Transferase (AST) 14 U/L (15-37) L Alanine Aminotransferase (ALT) 35 U/L (14-59) Alkaline Phosphatase 69 U/L (46-116) Troponin I Quantitative < 0.017 ng/mL (0.000-0.055) Total Protein 7.5 g/dL (6.4-8.2) Albumin 3.7 g/dL (3.4-5.0) Albumin/Globulin Ratio 1.0 (1.0-1.7) Laboratory Tests 08/18/18 18:07 Laboratory Tests 08/18/18 18:07 (ELOISA PICKARD MD) EKG EKG [] (LEW HERRERA APRN) Radiology/Procedures Radiology/Procedures [] (LEW HERRERA APRN) Impressions: [address] [phone] IMAGING REPORT Signed PATIENT: FRANKY ISIDRO ACCOUNT: [id number] : 1980 LOCATION: ER AGE: 38 SEX: F EXAM STATUS: REG ER ORD. PHYSICIAN: LEW HERRERA APRN REASON: pain PROCEDURE: CHEST PA & LATERAL CHEST PA LATERAL History: Back pain. Comparison with image from June 15, 2017, but no report. Heart size not enlarged. No pneumothorax, pleural effusion or consolidation. Regional skeleton appears intact. IMPRESSION: No consolidating infiltrate. Electronically signed by: Ian Ramos MD (08/18/2018 7:08 PM) [facility] DICTATED and SIGNED BY: IAN RAMOS MD DATE: 08/18/[address] [id number] IMAGING REPORT Signed PATIENT: FRANKY ISIDRO ACCOUNT: [id number] : 1980 LOCATION: ER AGE: 38 SEX: F EXAM STATUS: REG ER ORD. PHYSICIAN: LEW HERRERA APRN REASON: headache PROCEDURE: CT HEAD WO CONTRAST CT head without contrast PQRS statement: CT scans at this facility use dose reduction including either automated exposure control, iterative reconstructions, and /or weight based radiation dosing via mA and kV modification when appropriate to reduce radiation dose to as low as reasonably achievable. HISTORY: Headache. TECHNIQUE: [address] imaging skull base to vertex. COMPARISON: CT head January 23, 2018. FINDINGS: Due to density of the patient's calvarium there is mild beam attenuation artifact deep to the calvarium along the surfaces of the cerebral hemispheres may decrease sensitivity to detect subtle cortical abnormalities or even small extra-axial hemorrhages. In light of this no intracranial hemorrhage, mass, hydrocephalus or infarction is evident. Imaged orbits, mastoids, paranasal sinuses and bones are unremarkable. IMPRESSION: No acute intracranial CT abnormality. Electronically signed by: Neris Baer MD (08/18/2018 7:30 PM) [facility] DICTATED and SIGNED BY: NERIS BAER MD DATE: 08/18/181929 (LEW HERRERA APRN) Course & Med Decision Making Course & Med Decision Making Patient is a 38 year old female who presents with 8 days of visual changes such as seen only shadows" vision, numbness to the right arm and now she states she's hard time finding words. Patient states 8 days ago when she began seeing shadows" vision she went to the urgent care and they stated that her pressures and her eyes were elevated. Patient states she saw a running rigger and was told her eyes were fine. Upon neuro examination patient is easily questions appropriately but does have trouble finding the words but does eventually find what word she is trying to say. Speaks in full clear sentences. Pupils are clear to auscultation lobes. Vital signs are within normal limits. Afebrile. Patient has frontal lobe pain and pain behind her eyes she is rating a 9 out of 10. PERRLA. Abdomen is soft and nontender. Patient denies chest pain, shortness of air, abdominal pain, nausea, vomiting, diarrhea, fever, neck pain, recent illness, migraines. Patient states this is the worse headache she's ever felt. Alert and oriented. His membranes are moist. Skin pink warm and dry. Follows commands. No extremity edema. Patient's right arm is tremoring and it seems to get worse when she raises the right arm. Patient also has some weakness in the right arm. Patient states when she looks up that hurts her eyes. Patient has partial hemianopsia. NIH 2. CT Head and Chest Xray shows no acute findings. I've spoken to Dr. Mcconnell and discussed the patient with him. He agrees that since the patient does not have a primary care provider to follow-up with that the best care would be to admit the patient and to go ahead and order the MRI brain with and without contrast for tomorrow. Patient will be admitted by . (LEW HERRERA APRN) Course & Med Decision Making Staff Physician Addendum: I was working in the ER during the course of this patient's visit. I was available for consultation as needed, i did briefly see the patient (ELOISA PICKARD MD) Dragon Disclaimer Dragon Disclaimer This electronic medical record was generated, in whole or in part, using a voice recognition dictation system. (LEW HERRERA APRN) NIHSS Stroke Scale NIH Stroke Scale: NIH Stroke Scale Response (Comments) Value Level of Consciousness: 0 Alert/Responsive 0 LOC Questions: 0 Answers both correctly 0 LOC Commands: 0 Performs both tasks 0 Best Gaze: 0 Normal 0 Visual: 1 Partial hemianopia 1 Facial Palsy: 0 Normal, symmetrical 0 Motor - Left Arm 0 No drift 0 Motor - Right Arm 0 No drift 0 Motor - Left Leg 0 No drift 0 Motor: Right Leg 0 No drift 0 Limb Ataxia: 0 Absent 0 Sensory: 0 No loss 0 Best Language: 1 Mild to mod aphasia 1 Dysathria: 0 Normal 0 Extinction and Inattention: 0 Normal 0 Total 2 Departure Departure Referrals: MITUL SANCHEZ (PCP) LEW HERRERA APRN Aug 18, 2018 18:54 ELOISA PICKARD MD Aug 19, 2018 19:29
[2018-08-18 18:55] LABS: ALBUMIN 3.7 g/dL (3.4-5.0); TOTAL BILIRUBIN 0.4 mg/dL (0.2-1.0); TOTAL PROTEIN 7.5 g/dL (6.4-8.2)
[2018-08-18 18:57] LABS: % BANDS 2 % (0-9); % LYMPHS 12 % (24-48); % MONOS 4 % (0-10); % SEGS 82 % (35-66)
[2018-08-18 18:58] LABS: PLT ESTIMATE ADEQUATE (ADEQUATE)
--- NOTE | 2018-08-18 19:10 | RAD ---
CHEST PA LATERAL History: Back pain. Comparison with image from June 15, 2017, but no report. Heart size not enlarged. No pneumothorax, pleural effusion or consolidation. Regional skeleton appears intact. IMPRESSION: No consolidating infiltrate. Electronically signed by: Ian Ramos MD (08/18/2018 7:08 PM) [facility]
--- NOTE | 2018-08-18 19:33 | RAD ---
CT head without contrast PQRS statement: CT scans at this facility use dose reduction including either automated exposure control, iterative reconstructions, and /or weight based radiation dosing via mA and kV modification when appropriate to reduce radiation dose to as low as reasonably achievable. HISTORY: Headache. TECHNIQUE: [address] imaging skull base to vertex. COMPARISON: CT head January 23, 2018. FINDINGS: Due to density of the patient's calvarium there is mild beam attenuation artifact deep to the calvarium along the surfaces of the cerebral hemispheres may decrease sensitivity to detect subtle cortical abnormalities or even small extra-axial hemorrhages. In light of this no intracranial hemorrhage, mass, hydrocephalus or infarction is evident. Imaged orbits, mastoids, paranasal sinuses and bones are unremarkable. IMPRESSION: No acute intracranial CT abnormality. Electronically signed by: Salomón Baer MD (08/18/2018 7:30 PM) [facility]
[2018-08-18] MEDS ORDERED: fentaNYL PF VIAL 100 MCG/2 ML VIAL IV ONE (19:45)
[2018-08-18] MEDS ORDERED: ONDANSETRON PF 4 MG/2 ML VIAL. IV PRN (20:00)
[2018-08-18] MEDS ORDERED: ACETAMINOPHEN 325 MG TABLET. PO PRN (20:00)
[2018-08-18] MEDS: fentaNYL PF VIAL 100 MCG/2 ML VIAL IV PRN ×2 (21:03→23:16)
[2018-08-18] MEDS: SIMVASTATIN 20 MG TABLET PO SCH (21:45)
[2018-08-18] MEDS: POLYETHYLENE GLYCOL 3350 17 GM PACKET. PO SCH (21:45)
[2018-08-18] MEDS: traZODone 50 MG TABLET. PO SCH (21:54)
[2018-08-18] MEDS: KETOROLAC 30 MG/ML VIAL. IV PRN (21:54)
[2018-08-18] MEDS: IV RINGERS,LACTATED 1000ML 1,000 ML IV SCH (22:02)
[2018-08-18] MEDS ORDERED: ORPH100T PO (22:37)
[2018-08-18] MEDS ORDERED: OMEG1CAP6 PO (22:37)
[2018-08-18] MEDS ORDERED: METH18TA5 PO (22:37)
[2018-08-18 23:10] VITALS: BP 120/80
[2018-08-19] MEDS: fentaNYL PF VIAL 100 MCG/2 ML VIAL IV PRN ×8 (00:41→22:57)
[2018-08-19 03:42] VITALS: BP 114/60
[2018-08-19] MEDS ORDERED: diphenhydrAMINE HCL 25 MG CAPSULE PO PRN (04:00)
[2018-08-19] MEDS: HYDROcodone/APAP 7.5/325MG 1 TAB TABLET PO PRN ×3 (04:33→19:21)
[2018-08-19] MEDS: KETOROLAC 30 MG/ML VIAL. IV PRN ×3 (05:09→19:22)
[2018-08-19 07:00] VITALS: BP 119/51
[2018-08-19] MEDS: IV RINGERS,LACTATED 1000ML 1,000 ML IV SCH ×2 (07:41→16:44)
--- NOTE | 2018-08-19 08:43 | EKG ---
[facility] [address] [place] [address] Test Date: 2018-08-18 Test Time: 19:28:58 Pat Name: FRANKY ISIDRO Department: Room: [facility] Gender: F Behavioral Modification Assistant: : 1980 Requested By: LEW HERRERA Order Number: [id number] Reading MD: Geovany Amezquita MD Measurements Intervals [place] Rate: 75 P: 78 ND: 180 QRS: 3 QRSD: 84 T: 35 QT: 368 QTc: 413 Interpretive Statements SINUS RHYTHM Electronically Signed On 08-28-2018 22:10:00 CDT by Geovany Amezquita MD
[2018-08-19] MEDS: PANTOPRAZOLE 40 MG TABLET.DR. PO SCH (09:28)
[2018-08-19] MEDS: GABAPENTIN 100 MG CAPSULE. PO SCH ×3 (09:28→20:45)
[2018-08-19] MEDS: DULoxetine HCL 30 MG CAPSULE.DR PO SCH (09:28)
[2018-08-19] MEDS: POLYETHYLENE GLYCOL 3350 17 GM PACKET. PO SCH ×2 (09:28→21:00)
--- NOTE | 2018-08-19 09:28 | PDOC1 ---
History and Physical Date of Admission Date of Admission 08/19/2018 Identification/Chief Complaint Chief Complaint blurred vision Problems: (1) Headache (2) Numbness Source Source: Chart review, Patient History of Present Illness History of Present Illness Patient is a 38-year-old female with no significant past medical history except for a recent admission late in 2018 for a similar presentation with headaches. At that time the patient did not stay for an MRI solution in the discharge but continued to have symptoms of holocephalic headache associated pressure behind her eyes. The patient has continued to have similar symptoms but associated with the symptoms now she is experiencing neck pain which sounds like intentional headache and with the subsequent right arm numbness that radiates from her neck down to her arm to her third fourth and fifth finger the anterior palmar aspect of her hand. Patient has been prescribed different medications with very little relief of her symptoms. She is also complaining of visual disturbances that she describes as "darkness" not progressively got worse reason why she consulted an outside facility and she was told that her pressures in her eye were elevated. She was seen by ophthalmology and prescribed different eyedrops with no change in her pressures as per the patient every so often she gets double vision. The patient denies droopy eyes she denies dysphagia but she does refer feeling more fatigued towards the end of the day with no evidence of motor weaknesses reported. The patient does say that she's been "off balance" for the last 2 weeks which has gotten worse 48 hours prior to her admission to or institution. Patient has a history of MS in her family. She denies recent infections no diarrhea and no recent cold-like symptoms sneezing sinus problems no chest pain no palpitations no loss of vision was reported per se. She also referred noticing a loss of smell but when asked more details regarding this the patient said that one of her air fresheners that she stick some her wall did not smell as much but when she was asked to close her eyes and dye had a couple coffee brought into the room she was able to smell the coffee. No temporal pain reported, she does refer some nausea associated with the episodes of cephalalgia but no vomiting no allodynia, no scotomas and no light or sound sensitivity was reported His being admitted for evaluation of her headaches and neuropathy Past Medical History Cardiovascular: No pertinent hx Pulmonary: No pertinent hx GI: GERD Heme/Onc: No pertinent hx Hepatobiliary: No pertinent hx Psych: Anxiety Rheumatologic: No pertinent hx Infectious disease: No pertinent hx Renal/: No pertinent hx Endocrine: No pertinent hx Past Surgical History Past Surgical History: Appendectomy, Tonsillectomy, Hysterectomy Family History Family History: Coronary Artery Disease, High Cholestrol, Hypertension Family History: Parent Social History ALCOHOL: none Drugs: None Current Medications Current Medications Current Medications Medications (Trade) Dose Ordered Sig/Juaquin Start Time Stop Time Status Last Admin Dose Admin Acetaminophen (Tylenol) 650 mg PRN Q4HRS PRN 08/18/18 20:00 08/19/18 19:59 08/18/18 20:42 650 MG Acetaminophen/ Hydrocodone Bitart (Lortab 7.5/325) 1 tab PRN Q6HRS PRN 08/19/18 04:00 08/19/18 04:33 1 TAB Diphenhydramine HCl (Benadryl) 25 mg PRN Q6HRS PRN 08/19/18 04:00 08/19/18 04:33 25 MG Duloxetine HCl (Cymbalta) 30 mg DAILY 08/19/18 09:00 Fentanyl Citrate (Fentanyl 2ml Vial) 50 mcg PRN Q1HR PRN 08/18/18 20:00 08/19/18 19:59 08/19/18 07:42 50 MCG Gabapentin (Neurontin) 100 mg TID 08/19/18 09:00 Ketorolac Tromethamine (Toradol 30mg Vial) 30 mg PRN Q6HRS PRN 08/18/18 21:30 08/23/18 21:29 08/19/18 05:09 30 MG Methocarbamol (Robaxin) 750 mg PRN Q8HRS PRN 08/19/18 08:30 Ondansetron HCl (Zofran) 4 mg PRN Q8HRS PRN 08/18/18 20:00 08/19/18 19:59 Pantoprazole Sodium (Protonix) 40 mg DAILYAC 08/19/18 07:30 Polyethylene Glycol (miraLAX PACKET) 17 gm BID 08/18/18 21:45 Prochlorperazine Edisylate (Compazine) 5 mg PRN Q6HRS PRN 08/18/18 21:30 Ringer's Solution 1,000 ml @ 100 mls/hr Q10H 08/18/18 21:30 08/19/18 07:41 100 MLS/HR Simvastatin (Zocor) 20 mg QHS 08/18/18 21:45 Trazodone HCl (Desyrel) 50 mg QHS 08/18/18 21:45 08/18/18 21:54 50 MG Allergies Allergies Allergies Coded Allergies Type Severity Reaction Last Updated Verified morphine Allergy Severe Shortness of Air 01/25/16 Yes ROS Review of System CONSTITUTIONAL: No fever or chills EYES: No recent changes SKIN: No rash or itching CARDIOVASCULAR: No chest pain, syncope, palpitations, or edema RESPIRATORY: No SOB or cough GASTROINTESTINAL: No nausea, vomiting or abdominal pain NEUROLOGICAL: No headaches or weakness ENDOCRINE: No cold or heat intolerance GENITOURINARY: No urgency or frequency of urination MUSCULOSKELETAL: No back pain or joint pain LYMPHATICS: No enlarged lymph nodes PSYCHIATRIC: No anxiety or depression Physical Exam Physical Exam GEN.: No apparent distress. Alert and oriented. HEENT: Head is normocephalic, atraumatic NECK: Supple. LUNGS: Clear to auscultation. HEART: RRR, S1, S2 present. Peripheral pulses intact ABDOMEN: Soft, nontender. Positive bowel sounds. EXTREMITIES: Without any cyanosis. NEUROLOGIC: Normal speech, normal tone PSYCHIATRIC: Normal affect, normal mood. SKIN: No ulcerations Vitals Vitals Vital Signs Date Time Temp Pulse Resp B/P (MAP) Pulse Ox O2 Delivery O2 Flow Rate FiO2 08/19/18 07:42 98 Room Air 08/19/18 07:00 98.1 65 16 119/51 (73) 98.1 Labs Labs Laboratory Tests Test 08/18/18 17:56 08/18/18 18:07 Urine Collection Type Unknown Urine Color Yellow Urine Clarity Clear Urine pH 6.5 Urine Specific [place] 1.020 Urine Protein Negative mg/dL (NEG-TRACE) Urine Glucose (UA) Negative mg/dL (NEG) Urine Ketones (Stick) Negative mg/dL (NEG) Urine Blood Negative (NEG) Urine Nitrite Negative (NEG) Urine Bilirubin Negative (NEG) Urine Urobilinogen Dipstick 0.2 mg/dL (0.2 mg/dL) Urine Leukocyte Esterase Negative (NEG) Urine RBC Occ /HPF (0-2) Urine WBC 0 /HPF (0-4) Urine Squamous Epithelial Cells Mod /LPF Urine Bacteria Few /HPF (0-FEW) Urine Mucus Mod /LPF Bedside Urine HCG, Qualitative Hcg negative (Negative) White Blood Count 11.4 x10^3/uL (4.0-11.0) Red Blood Count 5.00 x10^6/uL (3.50-5.40) Hemoglobin 14.2 g/dL (12.0-15.5) Hematocrit 42.8 % (36.0-47.0) Mean Corpuscular Volume 86 fL (79-100) Mean Corpuscular Hemoglobin 28 pg (25-35) Mean Corpuscular Hemoglobin Concent 33 g/dL (31-37) Red Cell Distribution Width 14.5 % (11.5-14.5) Platelet Count 363 x10^3/uL (140-400) Neutrophils (%) (Auto) 88 % (31-73) Lymphocytes (%) (Auto) 10 % (24-48) Monocytes (%) (Auto) 2 % (0-9) Eosinophils (%) (Auto) 0 % (0-3) Basophils (%) (Auto) 1 % (0-3) Neutrophils # (Auto) 10.1 x10^3uL (1.8-7.7) Lymphocytes # (Auto) 1.1 x10^3/uL (1.0-4.8) Monocytes # (Auto) 0.2 x10^3/uL (0.0-1.1) Eosinophils # (Auto) 0.0 x10^3/uL (0.0-0.7) Basophils # (Auto) 0.1 x10^3/uL (0.0-0.2) Segmented Neutrophils % 82 % (35-66) Band Neutrophils % 2 % (0-9) Lymphocytes % 12 % (24-48) Monocytes % 4 % (0-10) Platelet Estimate Adequate (ADEQUATE) Prothrombin Time 12.3 SEC (11.7-14.0) Prothromb Time International Ratio 0.9 (0.8-1.1) Sodium Level 142 mmol/L (136-145) Potassium Level 4.3 mmol/L (3.5-5.1) Chloride Level 101 mmol/L (98-107) Carbon Dioxide Level 30 mmol/L (21-32) Anion Gap 11 (6-14) Blood Urea Nitrogen 22 mg/dL (7-20) Creatinine 1.1 mg/dL (0.6-1.0) Estimated GFR (Cockcroft-Gault) 55.3 BUN/Creatinine Ratio 20 (6-20) Glucose Level 154 mg/dL (70-99) Calcium Level 9.8 mg/dL (8.5-10.1) Total Bilirubin 0.4 mg/dL (0.2-1.0) Aspartate Amino Transf (AST/SGOT) 14 U/L (15-37) Alanine Aminotransferase (ALT/SGPT) 35 U/L (14-59) Alkaline Phosphatase 69 U/L (46-116) Troponin I Quantitative < 0.017 ng/mL (0.000-0.055) Total Protein 7.5 g/dL (6.4-8.2) Albumin 3.7 g/dL (3.4-5.0) Albumin/Globulin Ratio 1.0 (1.0-1.7) Laboratory Tests Test 08/18/18 17:56 08/18/18 18:07 Urine Collection Type Unknown Urine Color Yellow Urine Clarity Clear Urine pH 6.5 Urine Specific [place] 1.020 Urine Protein Negative mg/dL (NEG-TRACE) Urine Glucose (UA) Negative mg/dL (NEG) Urine Ketones (Stick) Negative mg/dL (NEG) Urine Blood Negative (NEG) Urine Nitrite Negative (NEG) Urine Bilirubin Negative (NEG) Urine Urobilinogen Dipstick 0.2 mg/dL (0.2 mg/dL) Urine Leukocyte Esterase Negative (NEG) Urine RBC Occ /HPF (0-2) Urine WBC 0 /HPF (0-4) Urine Squamous Epithelial Cells Mod /LPF Urine Bacteria Few /HPF (0-FEW) Urine Mucus Mod /LPF Bedside Urine HCG, Qualitative Hcg negative (Negative) White Blood Count 11.4 x10^3/uL (4.0-11.0) Red Blood Count 5.00 x10^6/uL (3.50-5.40) Hemoglobin 14.2 g/dL (12.0-15.5) Hematocrit 42.8 % (36.0-47.0) Mean Corpuscular Volume 86 fL (79-100) Mean Corpuscular Hemoglobin 28 pg (25-35) Mean Corpuscular Hemoglobin Concent 33 g/dL (31-37) Red Cell Distribution Width 14.5 % (11.5-14.5) Platelet Count 363 x10^3/uL (140-400) Neutrophils (%) (Auto) 88 % (31-73) Lymphocytes (%) (Auto) 10 % (24-48) Monocytes (%) (Auto) 2 % (0-9) Eosinophils (%) (Auto) 0 % (0-3) Basophils (%) (Auto) 1 % (0-3) Neutrophils # (Auto) 10.1 x10^3uL (1.8-7.7) Lymphocytes # (Auto) 1.1 x10^3/uL (1.0-4.8) Monocytes # (Auto) 0.2 x10^3/uL (0.0-1.1) Eosinophils # (Auto) 0.0 x10^3/uL (0.0-0.7) Basophils # (Auto) 0.1 x10^3/uL (0.0-0.2) Segmented Neutrophils % 82 % (35-66) Band Neutrophils % 2 % (0-9) Lymphocytes % 12 % (24-48) Monocytes % 4 % (0-10) Platelet Estimate Adequate (ADEQUATE) Prothrombin Time 12.3 SEC (11.7-14.0) Prothromb Time International Ratio 0.9 (0.8-1.1) Sodium Level 142 mmol/L (136-145) Potassium Level 4.3 mmol/L (3.5-5.1) Chloride Level 101 mmol/L (98-107) Carbon Dioxide Level 30 mmol/L (21-32) Anion Gap 11 (6-14) Blood Urea Nitrogen 22 mg/dL (7-20) Creatinine 1.1 mg/dL (0.6-1.0) Estimated GFR (Cockcroft-Gault) 55.3 BUN/Creatinine Ratio 20 (6-20) Glucose Level 154 mg/dL (70-99) Calcium Level 9.8 mg/dL (8.5-10.1) Total Bilirubin 0.4 mg/dL (0.2-1.0) Aspartate Amino Transf (AST/SGOT) 14 U/L (15-37) Alanine Aminotransferase (ALT/SGPT) 35 U/L (14-59) Alkaline Phosphatase 69 U/L (46-116) Troponin I Quantitative < 0.017 ng/mL (0.000-0.055) Total Protein 7.5 g/dL (6.4-8.2) Albumin 3.7 g/dL (3.4-5.0) Albumin/Globulin Ratio 1.0 (1.0-1.7) VTE Prophylaxis Ordered VTE Prophylaxis Devices: No VTE Pharmacological Prophylaxi: Yes Assessment/Plan Assessment/Plan Headache with visual disturbance. Muscle spasms, contributing to tensional headache? Associated neuropathy Unsteady gait Obesity with a BMI of 32 Renal insufficiency most likely vasomotor. Patient denies excess NSAID use Plan: will start Neurontin trial of robaxin as well will send inflammatory markers check vitamin B12 and thyroid function test neurology evaluation Further recommendations based on clinical course. TIARA BARONE MD Aug 19, 2018 09:28
[2018-08-19] MEDS: METHOCARBAMOL 750 MG TABLET PO PRN (10:24)
[2018-08-19 11:00] VITALS: BP 95/54
[2018-08-19 15:00] VITALS: BP 112/69
--- NOTE | 2018-08-19 15:57 | PDOC2 ---
NEUROLOGY CONSULT Date of Admission Date of Admission DATE: 08/19/18 TIME: 15:48 Reason for Consult Reason for Consult: Headaches, dizziness, blurred vision Referring Physician Referring Physician: Dr. Gomez Source Source: Chart review, Patient History of Present Illness History of Present Illness The patient is a 38-year-old right-handed female who comes in with headache behind the eyes, pain with movement of the eyes, blurred vision, and right arm numbness and shaking. She was here in January with chest pain, dizziness, blurred vision, and headache. Dr. Alberto obtained MRI of the brain without contrast , MRI of the brain with contrast, carotid Doppler studies, all negative. The patient has been going through pain management regarding cervical spondylosis. I reviewed on CD so MRI of the cervical spine from 05/22/18 showing mild multilevel disc bulges. She says that the first epidural injection was helpful, but subsequent injection did not help. She was thinking about having some nerve ablation procedure. She describes pain down the entire right arm from the neck going behind the scapula. 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 More recently she has been seeing an eye doctor for blurred vision. The asbestos brake lining finisher helper told her that she did have increased pressures in the eyes, but on return visit 9 days ago, the pressures were down, after treatment, and the patient was still having visual symptoms. She therefore decided to come to our emergency department. 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, no alcohol, tobacco, or street drugs Current Medications Current Medications Current Medications Fentanyl Citrate (Fentanyl 2ml Vial) 50 mcg 1X ONCE IV Last administered on 08/18/18at 19:50; Start 08/18/18 at 19:45; Stop 08/18/18 at 19:46; Status DC Ondansetron HCl (Zofran) 4 mg PRN Q8HRS PRN IV NAUSEA/VOMITING; Start 08/18/18 at 20:00; Stop 08/19/18 at 19:59 Fentanyl Citrate (Fentanyl 2ml Vial) 50 mcg PRN Q1HR PRN IV PAIN Last administered on 08/19/18 13:38; Start 08/18/18 at 20:00; Stop 08/19/18 at 19:59 Acetaminophen (Tylenol) 650 mg PRN Q4HRS PRN PO FEVER Last administered on 20:42; Start 08/18/18 at 20:00; Stop 08/19/18 at 19:59 Prochlorperazine Edisylate (Compazine) 5 mg PRN Q6HRS PRN IV HEADACHE; Start at 21:30 Ketorolac Tromethamine (Toradol 30mg Vial) 30 mg PRN Q6HRS PRN IV INFLAMMATION PAIN Last administered on 08/19/18 11:06; Start 08/18/18 at 21:30; Stop at 21:29 Ringer's Solution 1,000 ml @ 100 mls/hr Q10H IV Last administered on 07:41; Start 08/18/18 at 21:30 Duloxetine HCl (Cymbalta) 30 mg DAILY PO Last administered on 08/19/18 09:28; Start 08/19/18 at 09:00 Pantoprazole Sodium (Protonix) 40 mg DAILYAC PO Last administered on 08/19/18 09:28; Start 08/19/18 at 07:30 Trazodone HCl (Desyrel) 50 mg QHS PO Last administered on 08/18/18 21:54; Start 08/18/18 at 21:45 Polyethylene Glycol (miraLAX PACKET) 17 gm BID PO Last administered on 09:28; Start 08/18/18 at 21:45 Simvastatin (Zocor) 20 mg QHS PO ; Start 08/18/18 at 21:45 Diphenhydramine HCl (Benadryl) 25 mg PRN Q6HRS PRN PO ITCHING Last administered on 08/19/18 04:33; Start 08/19/18 at 04:00 Acetaminophen/ Hydrocodone Bitart (Lortab 7.5/325) 1 tab PRN Q6HRS PRN PO PAIN Last administered on 08/19/18 11:04; Start 08/19/18 at 04:00 Gabapentin (Neurontin) 100 mg TID PO Last administered on 08/19/18 13:38; Start 08/19/18 at 09:00 Methocarbamol (Robaxin) 750 mg PRN Q8HRS PRN PO MUSCLE SPASMS Last administered on 08/19/18 10:24; Start 08/19/18 at 08:30 Active Scripts Active Hydrocodone-Apap 7.5-325 (Hydrocodone Bit/Acetaminophen) 1 Each Tablet 1 Tab PO PRN Q4HRS PRN Trazodone Hcl 50 Mg Tablet 1 Tab PO QHS Miralax (Polyethylene Glycol 3350) 17 Gm Powd.pack 17 Gm PO BID Reported Fish Oil 1,000 Mg Capsule ([place]-3 Fatty Acids/Fish Oil) 1 Each Capsule 1 Each PO DAILY Concerta (Methylphenidate Hcl) 18 Mg Tab.er.24 1 Tab PO DAILY Orphenadrine Citrate 100 Mg Tablet.er 1 Tab PO BID Zocor (Simvastatin) 20 Mg Tablet 1 Tab PO QHS Duloxetine Hcl 30 Mg Capsule.dr 30 Mg PO DAILY Protonix (Pantoprazole Sodium) 40 Mg Tablet.dr 1 Tab PO DAILY Allergies Allergies: Coded Allergies: morphine (Verified Allergy, Severe, Shortness of Air, 01/25/16) ROS Review of System Negative for fever, chills, weight loss, shortness of breath, chest pain, indigestion, hematochezia, melena, and dysuria. Full 14-point review of systems is negative. Physical Exam Physical Examination General: Well-developed, well-nourished white female in no acute distress HEENT: Normocephalic andatraumatic. Tympanic membranes clear.Temporal arteries pulsatile and nontender.Fundoscopic exam unremarkable Neck: Supple without bruit, no meningismus Musculoskeletal: Stability:see neurologic. Gait exam:see neurologic. Tone:see neurologic. Strength:see neurologic. Neurological: Mental Status:intact, orientation, memory, attention span/concentration, language, fund of knowledge normal. Cranial Nerves:Pupils equal and reactive to light, extraocular movements areintact, visual balderas are full to confrontation. Facial sensation is normal. There is no facial asymmetry. Vestibulo-ocular reflex is intact. Palate elevates and tongue protrudes in midline. All other cranial related problems are negative except as mentioned before.Reflexes:2+ and symmetric with flexor plantar responses. Motor:5/5 strength with normal tone and bulk. Coordination:Finger-nose finger and heel-to -cazares testing are normal. There is an apparent voluntary tremor of the right arm which disappears with extraction. Rapid alternating movements and fine finger movements are intact. Gait:Normal, including tandem. Sensory:Normal pinprick, vibration, light touch, proprioception. Vitals VITALS Vital Signs Date Time Temp Pulse Resp B/P (MAP) Pulse Ox O2 Delivery O2 Flow Rate FiO2 08/19/18 14:27 Room Air 08/19/18 13:38 98 08/19/18 11:00 97.8 65 18 95/54 (68) 97.8 Labs Labs Laboratory Tests Test 08/18/18 17:56 08/18/18 18:07 08/19/18 09:25 Urine Collection Type Unknown Urine Color Yellow Urine Clarity Clear Urine pH 6.5 Urine Specific [place] 1.020 Urine Protein Negative mg/dL (NEG-TRACE) Urine Glucose (UA) Negative mg/dL (NEG) Urine Ketones (Stick) Negative mg/dL (NEG) Urine Blood Negative (NEG) Urine Nitrite Negative (NEG) Urine Bilirubin Negative (NEG) Urine Urobilinogen Dipstick 0.2 mg/dL (0.2 mg/dL) Urine Leukocyte Esterase Negative (NEG) Urine RBC Occ /HPF (0-2) Urine WBC 0 /HPF (0-4) Urine Squamous Epithelial Cells Mod /LPF Urine Bacteria Few /HPF (0-FEW) Urine Mucus Mod /LPF Bedside Urine HCG, Qualitative Hcg negative (Negative) White Blood Count 11.4 x10^3/uL (4.0-11.0) Red Blood Count 5.00 x10^6/uL (3.50-5.40) Hemoglobin 14.2 g/dL (12.0-15.5) Hematocrit 42.8 % (36.0-47.0) Mean Corpuscular Volume 86 fL (79-100) Mean Corpuscular Hemoglobin 28 pg (25-35) Mean Corpuscular Hemoglobin Concent 33 g/dL (31-37) Red Cell Distribution Width 14.5 % (11.5-14.5) Platelet Count 363 x10^3/uL (140-400) Neutrophils (%) (Auto) 88 % (31-73) Lymphocytes (%) (Auto) 10 % (24-48) Monocytes (%) (Auto) 2 % (0-9) Eosinophils (%) (Auto) 0 % (0-3) Basophils (%) (Auto) 1 % (0-3) Neutrophils # (Auto) 10.1 x10^3uL (1.8-7.7) Lymphocytes # (Auto) 1.1 x10^3/uL (1.0-4.8) Monocytes # (Auto) 0.2 x10^3/uL (0.0-1.1) Eosinophils # (Auto) 0.0 x10^3/uL (0.0-0.7) Basophils # (Auto) 0.1 x10^3/uL (0.0-0.2) Segmented Neutrophils % 82 % (35-66) Band Neutrophils % 2 % (0-9) Lymphocytes % 12 % (24-48) Monocytes % 4 % (0-10) Platelet Estimate Adequate (ADEQUATE) Prothrombin Time 12.3 SEC (11.7-14.0) Prothromb Time International Ratio 0.9 (0.8-1.1) Sodium Level 142 mmol/L (136-145) Potassium Level 4.3 mmol/L (3.5-5.1) Chloride Level 101 mmol/L (98-107) Carbon Dioxide Level 30 mmol/L (21-32) Anion Gap 11 (6-14) Blood Urea Nitrogen 22 mg/dL (7-20) Creatinine 1.1 mg/dL (0.6-1.0) Estimated GFR (Cockcroft-Gault) 55.3 BUN/Creatinine Ratio 20 (6-20) Glucose Level 154 mg/dL (70-99) Calcium Level 9.8 mg/dL (8.5-10.1) Total Bilirubin 0.4 mg/dL (0.2-1.0) Aspartate Amino Transf (AST/SGOT) 14 U/L (15-37) Alanine Aminotransferase (ALT/SGPT) 35 U/L (14-59) Alkaline Phosphatase 69 U/L (46-116) Troponin I Quantitative < 0.017 ng/mL (0.000-0.055) Total Protein 7.5 g/dL (6.4-8.2) Albumin 3.7 g/dL (3.4-5.0) Albumin/Globulin Ratio 1.0 (1.0-1.7) Erythrocyte Sedimentation Rate 5 (0-25) C-Reactive Protein, Quantitative 4.8 mg/L (0-3.3) Thyroid Stimulating Hormone (TSH) 1.502 uIU/mL (0.358-3.74) Laboratory Tests Test 08/18/18 17:56 08/18/18 18:07 08/19/18 09:25 Urine Collection Type Unknown Urine Color Yellow Urine Clarity Clear Urine pH 6.5 Urine Specific [place] 1.020 Urine Protein Negative mg/dL (NEG-TRACE) Urine Glucose (UA) Negative mg/dL (NEG) Urine Ketones (Stick) Negative mg/dL (NEG) Urine Blood Negative (NEG) Urine Nitrite Negative (NEG) Urine Bilirubin Negative (NEG) Urine Urobilinogen Dipstick 0.2 mg/dL (0.2 mg/dL) Urine Leukocyte Esterase Negative (NEG) Urine RBC Occ /HPF (0-2) Urine WBC 0 /HPF (0-4) Urine Squamous Epithelial Cells Mod /LPF Urine Bacteria Few /HPF (0-FEW) Urine Mucus Mod /LPF Bedside Urine HCG, Qualitative Hcg negative (Negative) White Blood Count 11.4 x10^3/uL (4.0-11.0) Red Blood Count 5.00 x10^6/uL (3.50-5.40) Hemoglobin 14.2 g/dL (12.0-15.5) Hematocrit 42.8 % (36.0-47.0) Mean Corpuscular Volume 86 fL (79-100) Mean Corpuscular Hemoglobin 28 pg (25-35) Mean Corpuscular Hemoglobin Concent 33 g/dL (31-37) Red Cell Distribution Width 14.5 % (11.5-14.5) Platelet Count 363 x10^3/uL (140-400) Neutrophils (%) (Auto) 88 % (31-73) Lymphocytes (%) (Auto) 10 % (24-48) Monocytes (%) (Auto) 2 % (0-9) Eosinophils (%) (Auto) 0 % (0-3) Basophils (%) (Auto) 1 % (0-3) Neutrophils # (Auto) 10.1 x10^3uL (1.8-7.7) Lymphocytes # (Auto) 1.1 x10^3/uL (1.0-4.8) Monocytes # (Auto) 0.2 x10^3/uL (0.0-1.1) Eosinophils # (Auto) 0.0 x10^3/uL (0.0-0.7) Basophils # (Auto) 0.1 x10^3/uL (0.0-0.2) Segmented Neutrophils % 82 % (35-66) Band Neutrophils % 2 % (0-9) Lymphocytes % 12 % (24-48) Monocytes % 4 % (0-10) Platelet Estimate Adequate (ADEQUATE) Prothrombin Time 12.3 SEC (11.7-14.0) Prothromb Time International Ratio 0.9 (0.8-1.1) Sodium Level 142 mmol/L (136-145) Potassium Level 4.3 mmol/L (3.5-5.1) Chloride Level 101 mmol/L (98-107) Carbon Dioxide Level 30 mmol/L (21-32) Anion Gap 11 (6-14) Blood Urea Nitrogen 22 mg/dL (7-20) Creatinine 1.1 mg/dL (0.6-1.0) Estimated GFR (Cockcroft-Gault) 55.3 BUN/Creatinine Ratio 20 (6-20) Glucose Level 154 mg/dL (70-99) Calcium Level 9.8 mg/dL (8.5-10.1) Total Bilirubin 0.4 mg/dL (0.2-1.0) Aspartate Amino Transf (AST/SGOT) 14 U/L (15-37) Alanine Aminotransferase (ALT/SGPT) 35 U/L (14-59) Alkaline Phosphatase 69 U/L (46-116) Troponin I Quantitative < 0.017 ng/mL (0.000-0.055) Total Protein 7.5 g/dL (6.4-8.2) Albumin 3.7 g/dL (3.4-5.0) Albumin/Globulin Ratio 1.0 (1.0-1.7) Erythrocyte Sedimentation Rate 5 (0-25) C-Reactive Protein, Quantitative 4.8 mg/L (0-3.3) Thyroid Stimulating Hormone (TSH) 1.502 uIU/mL (0.358-3.74) Images Images I reviewed the studies from January as well as last night's head CT, all negative Assessment/Plan Assessment/Plan Impression: Several symptoms including headache, blurred vision, neck pain with right arm radicular symptoms, right arm tremor, but her exam does not have an organic flavor. I suppose she could be having migraine headaches. We need to rule out multiple sclerosis or cerebrovascular disease. The patient is continuing to have symptoms and merits at least one more night of observation. Recommendation: I had requested the emergency room nurse practitioner to order an MRI of the brain with and without contrast but this was not accomplished, the study is ordered but will not be done until tomorrow. Further recommendations depending on the results of this study. If it is negative, and the patient is improving tomorrow, I would suggest discharge with follow-up with neurology and her asbestos brake lining finisher helper. Note that the patient is already on 2 antidepressants as well as gabapentin so additional treatment for migraine would be difficult, perhaps adding a beta braulio or topiramate would be helpful. Thank you for letting me help with the patient's care. OCTAVIO FRANCES MD Aug 19, 2018 15:57
[2018-08-19 19:34] VITALS: BP 105/65
[2018-08-19] MEDS: SIMVASTATIN 20 MG TABLET PO SCH (20:45)
[2018-08-19] MEDS: traZODone 50 MG TABLET. PO SCH (20:45)
[2018-08-19 23:10] VITALS: BP 91/46
[2018-08-20] MEDS: fentaNYL PF VIAL 100 MCG/2 ML VIAL IV PRN ×7 (02:36→22:01)
[2018-08-20] MEDS: HYDROcodone/APAP 7.5/325MG 1 TAB TABLET PO PRN ×3 (03:03→22:01)
[2018-08-20 03:07] VITALS: BP 103/65
[2018-08-20] MEDS: KETOROLAC 30 MG/ML VIAL. IV PRN ×3 (03:07→17:22)
[2018-08-20] MEDS: IV RINGERS,LACTATED 1000ML 1,000 ML IV SCH ×3 (03:30→23:30)
[2018-08-20 07:00] VITALS: BP 137/79
[2018-08-20] MEDS: PROCHLORPERAZINE 10 MG/2 ML VIAL. IV PRN (07:26)
[2018-08-20] MEDS: METHOCARBAMOL 750 MG TABLET PO PRN ×2 (07:26→17:21)
[2018-08-20] MEDS: POLYETHYLENE GLYCOL 3350 17 GM PACKET. PO SCH ×2 (09:00→21:00)
[2018-08-20] MEDS: GABAPENTIN 100 MG CAPSULE. PO SCH ×3 (10:15→22:00)
[2018-08-20] MEDS: PANTOPRAZOLE 40 MG TABLET.DR. PO SCH (10:16)
[2018-08-20] MEDS: DULoxetine HCL 30 MG CAPSULE.DR PO SCH (10:16)
[2018-08-20 11:00] VITALS: BP 106/57
[2018-08-20] MEDS ORDERED: GADOBUTROL 10 MMOL/10 ML VIAL IV ONE (12:00)
--- NOTE | 2018-08-20 13:04 | RAD ---
EXAM: Brain MRI with and without contrast. HISTORY: Vision changes. Concern for demyelinating disease. TECHNIQUE: Multiplanar, multisequence magnetic resonance imaging of the brain was performed prior to and following the administration of 9 cc Gadavist intravenous contrast. COMPARISON: Head CT dated 08/18/2018. FINDINGS: There is no restricted diffusion to suggest acute or subacute infarction. There is no susceptibility effect to suggest hemorrhage. There is no mass effect or midline shift. There is no hydrocephalus. No suspicious enhancing lesion is seen. No convincing suspicious white matter lesion is seen. There are few punctate foci of FLAIR hyperintensity within the frontal white matter which are likely artifactual. There is no convincing evidence of demyelinating disease. The orbits are unremarkable. The paranasal sinuses and mastoid air cells are unremarkable. There are normal flow voids within the cerebral vessels. IMPRESSION: No acute intracranial finding or convincing evidence of demyelinating disease. Electronically signed by: Kylie Bansal MD (08/20/2018 1:01 PM) [id number]
[2018-08-20 15:00] VITALS: BP 136/72
--- NOTE | 2018-08-20 18:24 | PDOC ---
PROGRESS NOTES Assessment Assessment Blurred vision, bilateral. Headaches. IIP? Dizziness. Right UE numbness. headaches. tremors. HLD. GERD. Anxiety. Carotid A stenosis. Obesity. No evidence of acute CVA this time. RECOMMENDATIONS/PLAN: On Neurontin 100 mg tid. Zocor HS. Treat medical diseases. Lab: see orders. LP to measure CSF opening pressure and labs. MRI w/wo contrast on 08/20/18: Negative. HCT on 01/23: Negative. Brain MRI w/o contrast on 01/24: Negative. PAST MEDICAL HISTORY Past Medical History Cardiovascular: No pertinent hx Pulmonary: No pertinent hx GI: GERD Heme/Onc: No pertinent hx Hepatobiliary: No pertinent hx Psych: Anxiety Rheumatologic: No pertinent hx Infectious disease: No pertinent hx ENT: No pertinent hx Renal/: No pertinent hx Endocrine: No pertinent hx Dermatology: No pertinent hx PAST SURGICAL HISTORY Cholecystectomy, Appendectomy, Tonsillectomy, Hysterectomy FAMILY HISTORY Coronary Artery Disease (father- [place] at age 35, multiple stents), Hypertension SOCIAL HISTORY Social History Smoke: No ALCOHOL: none Drugs: None Lives: with Family ALLERGIES: Morphine (Verified Allergy, Severe, Shortness of Air, 01/25/16) MEDICATIONS: Refer to [facility] REVIEW OF SYSTEMS: Constitutional: No malnutrition, weight loss, cachexia. Head: No traumatic brain or head injury. Skin: No edema, or rash. Ear: No infection, tinnitus. Eyes: No vision loss or color blindness. Nose: No bleeding or purulent discharges. Hearing: No hearing decrease. Neck: No injury. Breast: No history of cancer, masses,or discharges. Cardiac: HLD. Pulmonary: No pneumonia, COPD. GI: No GI ulcer, GI bleeding. Urinary/genital: UTI. Endocrinologic: Obesity. Skeletomuscular: No muscular atrophy, deformity. Neurological: see HP. Psychiatric: Denies drug use/abuse. Otherwise, not [id number] review of systems. PHYSICAL EXAMINATION: General appearance is in anxiety. HEENT: Normocephalic and nontraumatic. Eyes, nose, ears, and throat are unremarkable. Neck is supple. No lymphadenopathy. No crepitus. Cardiovascular: S1, S2, regular rate and rhythm. Pulmonary: Clear to auscultation bilaterally. Abdomen: Bowel sounds are positive. Abdomen is soft, nontender, and nondistended. Extremities: No rash, lesions, or edema. No restriction of range of motion NEUROLOGICAL EXAMINATION: Alert Oriented to time, place and person. PERRL. EOMI. CN: no focal findings. Muscle tone: within normal. Muscle strength: 5 DTR: 2 Plantar reflex: Flexor response bilaterally Gait: not examined in bed. Sensory exam: no abnormal findings. No cerebellar signs elicited. F-T-N test accurate. Objective Objective Vital Signs Date Time Temp Pulse Resp B/P (MAP) Pulse Ox O2 Delivery O2 Flow Rate FiO2 08/20/18 16:30 Room Air 08/20/18 15:41 99 08/20/18 15:00 98.0 75 16 136/72 (93) 98.0 Intake and Output 08/20/18 07:00 Intake Total 1400 ml Balance 1400 ml Intake Oral 200 ml Blood Product 1200 ml # Voids 2 Vitals Signs Vitals VS - Last 72 Hours, by Label Date Time Temp Pulse Resp B/P (MAP) Pulse Ox O2 Delivery O2 Flow Rate FiO2 08/20/18 16:30 Room Air 08/20/18 15:41 99 Room Air 08/20/18 15:00 98.0 75 16 136/72 (93) 99 Room Air 98.0 08/20/18 13:18 Room Air 08/20/18 11:26 Room Air 08/20/18 11:00 98.1 67 16 106/57 (73) 99 Room Air 98.1 08/20/18 10:24 99 Room Air 08/20/18 10:16 Room Air 08/20/18 08:00 Room Air 08/20/18 07:00 97.6 63 16 137/79 (98) 99 Room Air 97.6 08/20/18 06:40 16 96 Room Air 08/20/18 04:03 18 08/20/18 03:07 98.1 83 20 103/65 (78) 96 Room Air 98.1 08/20/18 03:06 16 96 08/20/18 03:03 16 97 Room Air 08/20/18 02:36 16 97 Room Air 08/19/18 23:10 98.2 71 18 91/46 (61) 97 Room Air 98.2 08/19/18 22:57 Room Air 08/19/18 20:44 Room Air 08/19/18 20:00 Room Air 08/19/18 19:34 98.4 78 20 105/65 (78) 98 Room Air 98.4 08/19/18 19:21 Room Air 08/19/18 17:22 Room Air 08/19/18 16:44 98 Room Air 08/19/18 15:00 98.1 70 18 112/69 (83) 98 Room Air 98.1 08/19/18 13:38 98 Room Air 08/19/18 11:04 98 Room Air 08/19/18 11:00 97.8 65 18 95/54 (68) 99 Room Air 97.8 08/19/18 10:23 98 08/19/18 09:48 98 Room Air 08/19/18 08:00 Room Air 08/19/18 07:42 98 Room Air 08/19/18 07:00 98.1 65 16 119/51 (73) 98 Room Air 98.1 Medication Medications Current Medications Fentanyl Citrate (Fentanyl 2ml Vial) 50 mcg PRN Q2HR PRN IV PAIN Last administered on 08/20/18at 15:41; Start 08/19/18 at 20:30 Gadobutrol (Gadavist) 9 mmol 1X ONCE IV Last administered on 08/20/18at 12:17; Start 08/20/18 at 12:00; Stop 08/20/18 at 12:01; Status DC Comment Review of Relevant I have reviewed the following items lolis (where applicable) has been applied. CONNIE MCGEE MD Aug 20, 2018 18:24
[2018-08-20 20:06] LABS: BASO % 1 % (0-3); EOS # 0.2 x10^3/uL (0.0-0.7); EOS % 3 % (0-3); HEMATOCRIT 37.7 % (36.0-47.0); HEMOGLOBIN 12.5 g/dL (12.0-15.5); LYMPH # 3.1 x10^3/uL (1.0-4.8); LYMPH % 41 % (24-48); MEAN CORPUSCULAR HEMOGLOBIN 29 pg (25-35); MEAN CORPUSCULAR HGB CONC 33 g/dL (31-37); MEAN CORPUSCULAR VOLUME 86 fL (79-100); MONO # 0.5 x10^3/uL (0.0-1.1); MONO % 6 % (0-9); NEUT # 3.7 x10^3uL (1.8-7.7); NEUT % 49 % (31-73); PLATELET COUNT 304 x10^3/uL (140-400); RED BLOOD COUNT 4.38 x10^6/uL (3.50-5.40); RED CELL DISTRIBUTION WIDTH 14.4 % (11.5-14.5); WHITE BLOOD COUNT 7.5 x10^3/uL (4.0-11.0)
--- NOTE | 2018-08-20 20:16 | PDOC ---
PROGRESS NOTES Chief Complaint Chief Complaint Headache with visual disturbance. Muscle spasms, contributing to tensional headache? Associated neuropathy Unsteady gait Obesity with a BMI of 32 Renal insufficiency most likely vasomotor. Patient denies excess NSAID use Plan: continue Neurontin continue robaxin as well neurology evaluation greatly appreciated will do LP for opening pressure Further recommendations based on clinical course. History of Present Illness History of Present Illness no acute events reported overnight, no new complaints. somewhat improved. Vitals Vitals Vital Signs Date Time Temp Pulse Resp B/P (MAP) Pulse Ox O2 Delivery O2 Flow Rate FiO2 08/20/18 16:30 Room Air 08/20/18 15:41 99 08/20/18 15:00 98.0 75 16 136/72 (93) 98.0 Physical Exam Lungs: Clear Labs LABS Laboratory Tests Test 08/20/18 19:50 White Blood Count 7.5 x10^3/uL (4.0-11.0) Red Blood Count 4.38 x10^6/uL (3.50-5.40) Hemoglobin 12.5 g/dL (12.0-15.5) Hematocrit 37.7 % (36.0-47.0) Mean Corpuscular Volume 86 fL (79-100) Mean Corpuscular Hemoglobin 29 pg (25-35) Mean Corpuscular Hemoglobin Concent 33 g/dL (31-37) Red Cell Distribution Width 14.4 % (11.5-14.5) Platelet Count 304 x10^3/uL (140-400) Neutrophils (%) (Auto) 49 % (31-73) Lymphocytes (%) (Auto) 41 % (24-48) Monocytes (%) (Auto) 6 % (0-9) Eosinophils (%) (Auto) 3 % (0-3) Basophils (%) (Auto) 1 % (0-3) Neutrophils # (Auto) 3.7 x10^3uL (1.8-7.7) Lymphocytes # (Auto) 3.1 x10^3/uL (1.0-4.8) Monocytes # (Auto) 0.5 x10^3/uL (0.0-1.1) Eosinophils # (Auto) 0.2 x10^3/uL (0.0-0.7) Basophils # (Auto) 0.0 x10^3/uL (0.0-0.2) Comment Review of Relevant I have reviewed the following items lolis (where applicable) has been applied. Labs Laboratory Tests Test 08/19/18 09:25 08/20/18 19:50 Erythrocyte Sedimentation Rate 5 (0-25) C-Reactive Protein, Quantitative 4.8 mg/L (0-3.3) Vitamin B12 Level 400 pg/mL (247-911) Thyroid Stimulating Hormone (TSH) 1.502 uIU/mL (0.358-3.74) White Blood Count 7.5 x10^3/uL (4.0-11.0) Red Blood Count 4.38 x10^6/uL (3.50-5.40) Hemoglobin 12.5 g/dL (12.0-15.5) Hematocrit 37.7 % (36.0-47.0) Mean Corpuscular Volume 86 fL (79-100) Mean Corpuscular Hemoglobin 29 pg (25-35) Mean Corpuscular Hemoglobin Concent 33 g/dL (31-37) Red Cell Distribution Width 14.4 % (11.5-14.5) Platelet Count 304 x10^3/uL (140-400) Neutrophils (%) (Auto) 49 % (31-73) Lymphocytes (%) (Auto) 41 % (24-48) Monocytes (%) (Auto) 6 % (0-9) Eosinophils (%) (Auto) 3 % (0-3) Basophils (%) (Auto) 1 % (0-3) Neutrophils # (Auto) 3.7 x10^3uL (1.8-7.7) Lymphocytes # (Auto) 3.1 x10^3/uL (1.0-4.8) Monocytes # (Auto) 0.5 x10^3/uL (0.0-1.1) Eosinophils # (Auto) 0.2 x10^3/uL (0.0-0.7) Basophils # (Auto) 0.0 x10^3/uL (0.0-0.2) Laboratory Tests Test 08/20/18 19:50 White Blood Count 7.5 x10^3/uL (4.0-11.0) Red Blood Count 4.38 x10^6/uL (3.50-5.40) Hemoglobin 12.5 g/dL (12.0-15.5) Hematocrit 37.7 % (36.0-47.0) Mean Corpuscular Volume 86 fL (79-100) Mean Corpuscular Hemoglobin 29 pg (25-35) Mean Corpuscular Hemoglobin Concent 33 g/dL (31-37) Red Cell Distribution Width 14.4 % (11.5-14.5) Platelet Count 304 x10^3/uL (140-400) Neutrophils (%) (Auto) 49 % (31-73) Lymphocytes (%) (Auto) 41 % (24-48) Monocytes (%) (Auto) 6 % (0-9) Eosinophils (%) (Auto) 3 % (0-3) Basophils (%) (Auto) 1 % (0-3) Neutrophils # (Auto) 3.7 x10^3uL (1.8-7.7) Lymphocytes # (Auto) 3.1 x10^3/uL (1.0-4.8) Monocytes # (Auto) 0.5 x10^3/uL (0.0-1.1) Eosinophils # (Auto) 0.2 x10^3/uL (0.0-0.7) Basophils # (Auto) 0.0 x10^3/uL (0.0-0.2) Medications Current Medications Fentanyl Citrate (Fentanyl 2ml Vial) 50 mcg 1X ONCE IV Last administered on 08/18/18at 19:50; Start 08/18/18 at 19:45; Stop 08/18/18 at 19:46; Status DC Ondansetron HCl (Zofran) 4 mg PRN Q8HRS PRN IV NAUSEA/VOMITING; Start 08/18/18 at 20:00; Stop 08/19/18 at 19:59; Status DC Fentanyl Citrate (Fentanyl 2ml Vial) 50 mcg PRN Q1HR PRN IV PAIN Last administered on 08/19/18at 16:44; Start 08/18/18 at 20:00; Stop 08/19/18 at 19:59 ; Status DC Acetaminophen (Tylenol) 650 mg PRN Q4HRS PRN PO FEVER Last administered on at 20:42; Start 08/18/18 at 20:00; Stop 08/19/18 at 19:59; Status DC Prochlorperazine Edisylate (Compazine) 5 mg PRN Q6HRS PRN IV HEADACHE Last administered on 08/20/18 07:26; Start 08/18/18 at 21:30 Ketorolac Tromethamine (Toradol 30mg Vial) 30 mg PRN Q6HRS PRN IV INFLAMMATION PAIN Last administered on 08/20/18 17:22; Start 08/18/18 at 21:30; Stop at 21:29 Ringer's Solution 1,000 ml @ 100 mls/hr Q10H IV Last administered on 13:30; Start 08/18/18 at 21:30 Duloxetine HCl (Cymbalta) 30 mg DAILY PO Last administered on 08/20/18 10:16; Start 08/19/18 at 09:00 Pantoprazole Sodium (Protonix) 40 mg DAILYAC PO Last administered on 08/20/18 10:16; Start 08/19/18 at 07:30 Trazodone HCl (Desyrel) 50 mg QHS PO Last administered on 08/19/18 20:45; Start 08/18/18 at 21:45 Polyethylene Glycol (miraLAX PACKET) 17 gm BID PO Last administered on 09:28; Start 08/18/18 at 21:45 Simvastatin (Zocor) 20 mg QHS PO Last administered on 08/19/18 20:45; Start at 21:45 Diphenhydramine HCl (Benadryl) 25 mg PRN Q6HRS PRN PO ITCHING Last administered on 08/19/18 04:33; Start 08/19/18 at 04:00 Acetaminophen/ Hydrocodone Bitart (Lortab 7.5/325) 1 tab PRN Q6HRS PRN PO PAIN Last administered on 08/20/18 10:16; Start 08/19/18 at 04:00 Gabapentin (Neurontin) 100 mg TID PO Last administered on 08/20/18 15:40; Start 08/19/18 at 09:00 Methocarbamol (Robaxin) 750 mg PRN Q8HRS PRN PO MUSCLE SPASMS Last administered on 08/20/18 17:21; Start 08/19/18 at 08:30 Fentanyl Citrate (Fentanyl 2ml Vial) 50 mcg PRN Q2HR PRN IV PAIN Last administered on 08/20/18at 19:41; Start 08/19/18 at 20:30 Gadobutrol (Gadavist) 9 mmol 1X ONCE IV Last administered on 08/20/18at 12:17; Start 08/20/18 at 12:00; Stop 08/20/18 at 12:01; Status DC Active Scripts Active Hydrocodone-Apap 7.5-325 (Hydrocodone Bit/Acetaminophen) 1 Each Tablet 1 Tab PO PRN Q4HRS PRN Trazodone Hcl 50 Mg Tablet 1 Tab PO QHS Miralax (Polyethylene Glycol 3350) 17 Gm Powd.pack 17 Gm PO BID Reported Fish Oil 1,000 Mg Capsule ([place]-3 Fatty Acids/Fish Oil) 1 Each Capsule 1 Each PO DAILY Concerta (Methylphenidate Hcl) 18 Mg Tab.er.24 1 Tab PO DAILY Orphenadrine Citrate 100 Mg Tablet.er 1 Tab PO BID Zocor (Simvastatin) 20 Mg Tablet 1 Tab PO QHS Duloxetine Hcl 30 Mg Capsule. 30 Mg PO DAILY Protonix (Pantoprazole Sodium) 40 Mg Tablet. 1 Tab PO DAILY Vitals/I & O Vital Sign - Last 24 Hours 08/19/18 08/19/18 08/19/18 08/20/18 20:44 22:57 23:10 02:36 Temp 98.2 98.2 Pulse 71 Resp 18 16 B/P (MAP) 91/46 (61) Pulse Ox 97 97 O2 Delivery Room Air Room Air Room Air Room Air 08/20/18 08/20/18 08/20/18 08/20/18 03:03 03:06 03:07 04:03 Temp 98.1 98.1 Pulse 83 Resp 16 16 20 18 B/P (MAP) 103/65 (78) Pulse Ox 97 96 96 O2 Delivery Room Air Room Air 08/20/18 08/20/18 08/20/18 08/20/18 06:40 07:00 08:00 10:16 Temp 97.6 97.6 Pulse 63 Resp 16 16 B/P (MAP) 137/79 (98) Pulse Ox 96 99 O2 Delivery Room Air Room Air Room Air Room Air 08/20/18 08/20/18 08/20/18 08/20/18 10:24 11:00 11:26 13:18 Temp 98.1 98.1 Pulse 67 Resp 16 B/P (MAP) 106/57 (73) Pulse Ox 99 99 O2 Delivery Room Air Room Air Room Air Room Air 08/20/18 08/20/18 08/20/18 15:00 15:41 16:30 Temp 98.0 98.0 Pulse 75 Resp 16 B/P (MAP) 136/72 (93) Pulse Ox 99 99 O2 Delivery Room Air Room Air Room Air Intake and Output 08/19/18 08/19/18 08/20/18 15:00 23:00 07:00 Intake Total 1400 ml Balance 1400 ml TIARA BARONE MD Aug 20, 2018 20:16
[2018-08-20] MEDS: traZODone 50 MG TABLET. PO SCH (22:00)
[2018-08-20] MEDS: SIMVASTATIN 20 MG TABLET PO SCH (22:00)
[2018-08-20 22:35] VITALS: BP 115/73
[2018-08-21] MEDS: fentaNYL PF VIAL 100 MCG/2 ML VIAL IV PRN ×2 (03:05→08:11)
[2018-08-21] MEDS: IV RINGERS,LACTATED 1000ML 1,000 ML IV SCH ×2 (03:08→19:30)
[2018-08-21] MEDS: METHOCARBAMOL 750 MG TABLET PO PRN (03:12)
[2018-08-21 03:13] VITALS: BP 120/68
[2018-08-21 07:00] VITALS: BP 146/90
[2018-08-21] MEDS: GABAPENTIN 100 MG CAPSULE. PO SCH ×3 (08:11→20:44)
[2018-08-21] MEDS: POLYETHYLENE GLYCOL 3350 17 GM PACKET. PO SCH ×2 (08:12→20:45)
[2018-08-21] MEDS: PANTOPRAZOLE 40 MG TABLET.DR. PO SCH (08:14)
[2018-08-21] MEDS: DULoxetine HCL 30 MG CAPSULE.DR PO SCH (08:14)
--- NOTE | 2018-08-21 08:35 | NUR ---
SW following pt for anticipated dc needs. Chart reviewed. Pt lives at home with family and on room air. No SW needs noted at this time. Will continue to follow.
[2018-08-21] MEDS: KETOROLAC 30 MG/ML VIAL. IV PRN ×2 (09:06→16:41)
[2018-08-21] MEDS ORDERED: BUTALB/APAP/CAFEIN 50/325/40MG TABLET. PO PRN (09:15)
[2018-08-21] MEDS ORDERED: DEXAMETHASONE SOD PHOS 4 MG/ML VIAL IV ONE (09:15)
[2018-08-21] MEDS ORDERED: CYCLOBENZAPRINE 10 MG TABLET. PO PRN (09:15)
[2018-08-21 11:00] VITALS: BP 123/78
[2018-08-21] MEDS: HYDROcodone/APAP 7.5/325MG 1 TAB TABLET PO PRN ×2 (12:06→20:44)
--- NOTE | 2018-08-21 15:34 | PDOC ---
Provider Note Provider Note The fluoro guided LP was performed without difficulty utilizing a 22g spinal needle. 9.5 cc of clear CSF was removed and sent to the lab for appropriate studies. Full report to follow. The patient tolerated the procedure well and was returned to the floor in stable condition. SANDRA COTE MD Aug 21, 2018 15:34
--- NOTE | 2018-08-21 15:50 | PDOC ---
PROGRESS NOTES Assessment Assessment Blurred vision, bilateral. Headaches. IIP? Dizziness. Right UE numbness. headaches. tremors. HLD. GERD. Anxiety. Carotid A stenosis. Obesity. No evidence of acute CVA this time. RECOMMENDATIONS/PLAN: On Neurontin 100 mg tid. Zocor HS. Treat medical diseases. Lab: see orders. LP to measure CSF opening pressure and labs. MRI w/wo contrast on 08/20/18: Negative. HCT on 01/23: Negative. Brain MRI w/o contrast on 01/24: Negative. PAST MEDICAL HISTORY Past Medical History Cardiovascular: No pertinent hx Pulmonary: No pertinent hx GI: GERD Heme/Onc: No pertinent hx Hepatobiliary: No pertinent hx Psych: Anxiety Rheumatologic: No pertinent hx Infectious disease: No pertinent hx ENT: No pertinent hx Renal/: No pertinent hx Endocrine: No pertinent hx Dermatology: No pertinent hx PAST SURGICAL HISTORY Cholecystectomy, Appendectomy, Tonsillectomy, Hysterectomy FAMILY HISTORY Coronary Artery Disease (father- [place] at age 35, multiple stents), Hypertension SOCIAL HISTORY Social History Smoke: No ALCOHOL: none Drugs: None Lives: with Family ALLERGIES: Morphine (Verified Allergy, Severe, Shortness of Air, 01/25/16) MEDICATIONS: Refer to [facility] REVIEW OF SYSTEMS: Constitutional: No malnutrition, weight loss, cachexia. Head: No traumatic brain or head injury. Skin: No edema, or rash. Ear: No infection, tinnitus. Eyes: No vision loss or color blindness. Nose: No bleeding or purulent discharges. Hearing: No hearing decrease. Neck: No injury. Breast: No history of cancer, masses,or discharges. Cardiac: HLD. Pulmonary: No pneumonia, COPD. GI: No GI ulcer, GI bleeding. Urinary/genital: UTI. Endocrinologic: Obesity. Skeletomuscular: No muscular atrophy, deformity. Neurological: see HP. Psychiatric: Denies drug use/abuse. Otherwise, not [id number] review of systems. PHYSICAL EXAMINATION: General appearance is in anxiety. HEENT: Normocephalic and nontraumatic. Eyes, nose, ears, and throat are unremarkable. Neck is supple. No lymphadenopathy. No crepitus. Cardiovascular: S1, S2, regular rate and rhythm. Pulmonary: Clear to auscultation bilaterally. Abdomen: Bowel sounds are positive. Abdomen is soft, nontender, and nondistended. Extremities: No rash, lesions, or edema. No restriction of range of motion NEUROLOGICAL EXAMINATION: Alert Oriented to time, place and person. PERRL. EOMI. CN: no focal findings. Muscle tone: within normal. Muscle strength: 5 DTR: 2 Plantar reflex: Flexor response bilaterally Gait: not examined in bed. Sensory exam: no abnormal findings. No cerebellar signs elicited. F-T-N test accurate. Objective Objective Vital Signs Date Time Temp Pulse Resp B/P (MAP) Pulse Ox O2 Delivery O2 Flow Rate FiO2 08/21/18 12:06 16 Room Air 08/21/18 11:00 97.7 82 123/78 (93) 98 97.7 Intake and Output 08/21/18 06:59 Intake Total 720 ml Balance 720 ml Intake Oral 720 ml # Voids 4 Vitals Signs Vitals VS - Last 72 Hours, by Label Date Time Temp Pulse Resp B/P (MAP) Pulse Ox O2 Delivery O2 Flow Rate FiO2 08/21/18 12:06 16 Room Air 08/21/18 11:00 97.7 82 18 123/78 (93) 98 Room Air 97.7 08/21/18 08:41 16 Room Air 08/21/18 08:11 16 Room Air 08/21/18 08:00 Room Air 08/21/18 07:00 97.5 74 18 146/90 (108) 100 Room Air 97.5 08/21/18 03:13 97.9 69 16 120/68 (85) 99 Room Air 97.9 08/20/18 22:35 98.3 74 18 115/73 (87) 98 Room Air 98.3 08/20/18 20:00 Room Air 08/20/18 15:41 99 Room Air 08/20/18 15:00 98.0 75 16 136/72 (93) 99 Room Air 98.0 08/20/18 13:18 Room Air 08/20/18 11:26 Room Air 08/20/18 11:00 98.1 67 16 106/57 (73) 99 Room Air 98.1 08/20/18 10:24 99 Room Air 08/20/18 10:16 Room Air 08/20/18 08:00 Room Air 08/20/18 07:00 97.6 63 16 137/79 (98) 99 Room Air 97.6 Laboratory Laboratory Laboratory Tests Test 08/20/18 19:50 White Blood Count 7.5 x10^3/uL (4.0-11.0) Red Blood Count 4.38 x10^6/uL (3.50-5.40) Hemoglobin 12.5 g/dL (12.0-15.5) Hematocrit 37.7 % (36.0-47.0) Mean Corpuscular Volume 86 fL (79-100) Mean Corpuscular Hemoglobin 29 pg (25-35) Mean Corpuscular Hemoglobin Concent 33 g/dL (31-37) Red Cell Distribution Width 14.4 % (11.5-14.5) Platelet Count 304 x10^3/uL (140-400) Neutrophils (%) (Auto) 49 % (31-73) Lymphocytes (%) (Auto) 41 % (24-48) Monocytes (%) (Auto) 6 % (0-9) Eosinophils (%) (Auto) 3 % (0-3) Basophils (%) (Auto) 1 % (0-3) Neutrophils # (Auto) 3.7 x10^3uL (1.8-7.7) Lymphocytes # (Auto) 3.1 x10^3/uL (1.0-4.8) Monocytes # (Auto) 0.5 x10^3/uL (0.0-1.1) Eosinophils # (Auto) 0.2 x10^3/uL (0.0-0.7) Basophils # (Auto) 0.0 x10^3/uL (0.0-0.2) Vitamin B12 Level 406 pg/mL (247-911) Medication Medications Current Medications Acetaminophen/ Butalbital/ Caffeine (Fioricet) 1 tab PRN Q6HRS PRN PO MIGRAINE HEADACHE; Start 08/21/18 at 09:15 Cyclobenzaprine HCl (Flexeril) 10 mg PRN Q6HRS PRN PO MUSCLE SPASMS; Start 05/30 at 09:15 Dexamethasone Sodium Phosphate (Decadron) 4 mg 1X ONCE IV Last administered on 08/21/18at 09:47; Start 08/21/18 at 09:15; Stop 08/21/18 at 09:16; Status DC Comment Review of Relevant I have reviewed the following items lolis (where applicable) has been applied. CONNIE MCGEE MD Aug 21, 2018 15:50
[2018-08-21 16:00] VITALS: BP 127/75
--- NOTE | 2018-08-21 16:12 | RAD ---
Fluoroscopically guided lumbar puncture, 08/21/2018: History: Headaches Under local anesthesia, aseptic conditions and fluoroscopic guidance a lumbar puncture was performed at the upper L3 level utilizing a 22-gauge spinal needle. Good clear CSF flow was obtained. The opening pressure was 27 cm of water. A total of 9.5 cc of CSF was removed and sent to the lab for appropriate studies. The closing pressure was measured at 18 cm of water. 1.8 minutes of fluoroscopy time was utilized. One fluoroscopic spot image was recorded. The patient tolerated the procedure well and was returned to the floor in stable condition.
[2018-08-21 16:18] LABS: CSF PROTEIN 52.4 mg/dL (15.0-45.0)
[2018-08-21 17:19] LABS: CSF CLARITY CLEAR; CSF COLOR COLORLESS
[2018-08-21 17:20] LABS: CSF RBC COUNT 1 /cmm (Not Established)
[2018-08-21 17:21] LABS: CSF WBC COUNT 2 /cmm (Not Established)
[2018-08-21] MEDS: PROCHLORPERAZINE 10 MG/2 ML VIAL. IV PRN (18:47)
[2018-08-21 19:46] VITALS: BP 139/83
[2018-08-21] MEDS: SIMVASTATIN 20 MG TABLET PO SCH (20:44)
[2018-08-21] MEDS: traZODone 50 MG TABLET. PO SCH (20:44)
--- NOTE | 2018-08-21 21:52 | NUR ---
Per Pharmacy spoke with Dr. Alberto regarding Topomax and acetazolamide drug interaction, she is aware and still wants to order the prescribed dosages, pharmacy notified
--- NOTE | 2018-08-21 22:03 | PDOC ---
PROGRESS NOTES Chief Complaint Chief Complaint Headache with visual disturbance. Muscle spasms, contributing to tensional headache? Associated neuropathy Unsteady gait Obesity with a BMI of 32 Renal insufficiency most likely vasomotor. Patient denies excess NSAID use Plan: adjusted muscle relaxants pain management hold off Fentanyl or narcotics since very little relief from these agents and potential for addiction is there neurology evaluation greatly appreciated will do LP for opening pressure Further recommendations based on clinical course. History of Present Illness History of Present Illness no acute events reported overnight, no new complaints. symptoms still not improved, she will undergo LP today, Vitals Vitals Vital Signs Date Time Temp Pulse Resp B/P (MAP) Pulse Ox O2 Delivery O2 Flow Rate FiO2 08/21/18 21:44 18 97 Room Air 08/21/18 19:46 98.7 90 139/83 (101) 98.7 Physical Exam Lungs: Clear Labs LABS Laboratory Tests Test 08/21/18 15:40 CSF Tube Number 3 CSF Volume 2.0 CSF Color Colorless CSF Clarity Clear CSF WBC 2 /cmm (Not Established) CSF RBC 1 /cmm (Not Established) CSF Glucose 84 mg/dL (37-70) CSF Total Protein 52.4 mg/dL (15.0-45.0) Comment Review of Relevant I have reviewed the following items lolis (where applicable) has been applied. Labs Laboratory Tests Test 08/20/18 19:50 08/21/18 15:40 White Blood Count 7.5 x10^3/uL (4.0-11.0) Red Blood Count 4.38 x10^6/uL (3.50-5.40) Hemoglobin 12.5 g/dL (12.0-15.5) Hematocrit 37.7 % (36.0-47.0) Mean Corpuscular Volume 86 fL (79-100) Mean Corpuscular Hemoglobin 29 pg (25-35) Mean Corpuscular Hemoglobin Concent 33 g/dL (31-37) Red Cell Distribution Width 14.4 % (11.5-14.5) Platelet Count 304 x10^3/uL (140-400) Neutrophils (%) (Auto) 49 % (31-73) Lymphocytes (%) (Auto) 41 % (24-48) Monocytes (%) (Auto) 6 % (0-9) Eosinophils (%) (Auto) 3 % (0-3) Basophils (%) (Auto) 1 % (0-3) Neutrophils # (Auto) 3.7 x10^3uL (1.8-7.7) Lymphocytes # (Auto) 3.1 x10^3/uL (1.0-4.8) Monocytes # (Auto) 0.5 x10^3/uL (0.0-1.1) Eosinophils # (Auto) 0.2 x10^3/uL (0.0-0.7) Basophils # (Auto) 0.0 x10^3/uL (0.0-0.2) Vitamin B12 Level 406 pg/mL (247-911) CSF Tube Number 3 CSF Volume 2.0 CSF Color Colorless CSF Clarity Clear CSF WBC 2 /cmm (Not Established) CSF RBC 1 /cmm (Not Established) CSF Glucose 84 mg/dL (37-70) CSF Total Protein 52.4 mg/dL (15.0-45.0) Laboratory Tests Test 08/21/18 15:40 CSF Tube Number 3 CSF Volume 2.0 CSF Color Colorless CSF Clarity Clear CSF WBC 2 /cmm (Not Established) CSF RBC 1 /cmm (Not Established) CSF Glucose 84 mg/dL (37-70) CSF Total Protein 52.4 mg/dL (15.0-45.0) Medications Current Medications Fentanyl Citrate (Fentanyl 2ml Vial) 50 mcg 1X ONCE IV Last administered on 08/18/18at 19:50; Start 08/18/18 at 19:45; Stop 08/18/18 at 19:46; Status DC Ondansetron HCl (Zofran) 4 mg PRN Q8HRS PRN IV NAUSEA/VOMITING; Start 08/18/18 at 20:00; Stop 08/19/18 at 19:59; Status DC Fentanyl Citrate (Fentanyl 2ml Vial) 50 mcg PRN Q1HR PRN IV PAIN Last administered on 08/19/18at 16:44; Start 08/18/18 at 20:00; Stop 08/19/18 at 19:59 ; Status DC Acetaminophen (Tylenol) 650 mg PRN Q4HRS PRN PO FEVER Last administered on at 20:42; Start 08/18/18 at 20:00; Stop 08/19/18 at 19:59; Status DC Prochlorperazine Edisylate (Compazine) 5 mg PRN Q6HRS PRN IV HEADACHE Last administered on 08/21/18 18:47; Start 08/18/18 at 21:30 Ketorolac Tromethamine (Toradol 30mg Vial) 30 mg PRN Q6HRS PRN IV INFLAMMATION PAIN Last administered on 08/21/18 16:41; Start 08/18/18 at 21:30; Stop at 21:29 Ringer's Solution 1,000 ml @ 100 mls/hr Q10H IV Last administered on 03:08; Start 08/18/18 at 21:30 Duloxetine HCl (Cymbalta) 30 mg DAILY PO Last administered on 08/21/18 08:14; Start 08/19/18 at 09:00 Pantoprazole Sodium (Protonix) 40 mg DAILYAC PO Last administered on 08/21/18 08:14; Start 08/19/18 at 07:30 Trazodone HCl (Desyrel) 50 mg QHS PO Last administered on 08/21/18 20:44; Start 08/18/18 at 21:45 Polyethylene Glycol (miraLAX PACKET) 17 gm BID PO Last administered on 20:45; Start 08/18/18 at 21:45 Simvastatin (Zocor) 20 mg QHS PO Last administered on 08/21/18 20:44; Start at 21:45 Diphenhydramine HCl (Benadryl) 25 mg PRN Q6HRS PRN PO ITCHING Last administered on 08/19/18 04:33; Start 08/19/18 at 04:00 Acetaminophen/ Hydrocodone Bitart (Lortab 7.5/325) 1 tab PRN Q6HRS PRN PO PAIN Last administered on 08/21/18 20:44; Start 08/19/18 at 04:00 Gabapentin (Neurontin) 100 mg TID PO Last administered on 08/21/18 20:44; Start 08/19/18 at 09:00 Methocarbamol (Robaxin) 750 mg PRN Q8HRS PRN PO MUSCLE SPASMS Last administered on 08/21/18 03:12; Start 08/19/18 at 08:30; Stop 08/21/18 at 09:06 ; Status DC Fentanyl Citrate (Fentanyl 2ml Vial) 50 mcg PRN Q2HR PRN IV PAIN Last administered on 08/21/18at 08:11; Start 08/19/18 at 20:30; Stop 08/21/18 at 09:06 ; Status DC Gadobutrol (Gadavist) 9 mmol 1X ONCE IV Last administered on 08/20/18at 12:17; Start 08/20/18 at 12:00; Stop 08/20/18 at 12:01; Status DC Dexamethasone Sodium Phosphate (Decadron) 4 mg 1X ONCE IV Last administered on 08/21/18at 09:47; Start 08/21/18 at 09:15; Stop 08/21/18 at 09:16; Status DC Cyclobenzaprine HCl (Flexeril) 10 mg PRN Q6HRS PRN PO MUSCLE SPASMS; Start 05/30 at 09:15 Acetaminophen/ Butalbital/ Caffeine (Fioricet) 1 tab PRN Q6HRS PRN PO MIGRAINE HEADACHE; Start 08/21/18 at 09:15 Topiramate (Topamax) 25 mg BID PO ; Start 08/21/18 at 21:00 Acetazolamide (Diamox) 125 mg TID PO ; Start 08/21/18 at 22:00 Active Scripts Active Hydrocodone-Apap 7.5-325 (Hydrocodone Bit/Acetaminophen) 1 Each Tablet 1 Tab PO PRN Q4HRS PRN Trazodone Hcl 50 Mg Tablet 1 Tab PO QHS Miralax (Polyethylene Glycol 3350) 17 Gm Powd.pack 17 Gm PO BID Reported Fish Oil 1,000 Mg Capsule ([place]-3 Fatty Acids/Fish Oil) 1 Each Capsule 1 Each PO DAILY Concerta (Methylphenidate Hcl) 18 Mg Tab.er.24 1 Tab PO DAILY Orphenadrine Citrate 100 Mg Tablet.er 1 Tab PO BID Zocor (Simvastatin) 20 Mg Tablet 1 Tab PO QHS Duloxetine Hcl 30 Mg Capsule. 30 Mg PO DAILY Protonix (Pantoprazole Sodium) 40 Mg Tablet.dr 1 Tab PO DAILY Vitals/I & O Vital Sign - Last 24 Hours 08/20/18 08/21/18 08/21/18 08/21/18 22:35 03:13 07:00 08:00 Temp 98.3 97.9 97.5 98.3 97.9 97.5 Pulse 74 69 74 Resp 18 16 18 B/P (MAP) 115/73 (87) 120/68 (85) 146/90 (108) Pulse Ox 98 99 100 O2 Delivery Room Air Room Air Room Air Room Air 08/21/18 08/21/18 08/21/18 08/21/18 08:11 08:41 11:00 12:06 Temp 97.7 97.7 Pulse 82 Resp 16 16 18 16 B/P (MAP) 123/78 (93) Pulse Ox 98 O2 Delivery Room Air Room Air Room Air Room Air 08/21/18 08/21/18 08/21/18 08/21/18 16:00 19:46 20:00 20:44 Temp 97.5 98.7 97.5 98.7 Pulse 76 90 Resp 18 20 18 B/P (MAP) 127/75 (92) 139/83 (101) Pulse Ox 94 97 97 O2 Delivery Room Air Room Air Room Air Room Air 08/21/18 21:44 Resp 18 Pulse Ox 97 O2 Delivery Room Air Intake and Output 08/20/18 08/20/18 08/21/18 15:00 23:00 07:00 Intake Total 480 ml 240 ml Balance 480 ml 240 ml TIARA BARONE MD Aug 21, 2018 22:03
[2018-08-21] MEDS: TOPIRAMATE 25 MG TABLET. PO SCH (22:10)
[2018-08-21] MEDS: acetaZOLAMIDE 250 MG TABLET. PO SCH (22:10)
[2018-08-21 23:16] VITALS: BP 122/68
[2018-08-22 03:12] VITALS: BP 104/57
[2018-08-22] MEDS: HYDROcodone/APAP 7.5/325MG 1 TAB TABLET PO PRN ×2 (03:28→10:15)
[2018-08-22 04:46] LABS: CALCIUM 9.2 mg/dL (8.5-10.1); GFR 61.7; POTASSIUM 3.7 mmol/L (3.5-5.1)
[2018-08-22] MEDS: IV RINGERS,LACTATED 1000ML 1,000 ML IV SCH (05:24)
[2018-08-22 07:00] VITALS: BP 113/68
[2018-08-22] MEDS: TOPIRAMATE 25 MG TABLET. PO SCH (08:58)
[2018-08-22] MEDS: GABAPENTIN 100 MG CAPSULE. PO SCH ×2 (08:58→14:06)
[2018-08-22] MEDS: POLYETHYLENE GLYCOL 3350 17 GM PACKET. PO SCH (08:58)
[2018-08-22] MEDS: DULoxetine HCL 30 MG CAPSULE.DR PO SCH (08:58)
[2018-08-22] MEDS: PANTOPRAZOLE 40 MG TABLET.DR. PO SCH (08:58)
[2018-08-22] MEDS: acetaZOLAMIDE 250 MG TABLET. PO SCH ×2 (09:05→14:07)
[2018-08-22] MEDS: KETOROLAC 30 MG/ML VIAL. IV PRN (10:18)
[2018-08-22 11:00] VITALS: BP 105/57
--- NOTE | 2018-08-22 11:35 | PDOC3 ---
Discharge Summary Visit Information Date of Admission: Aug 18, 2018 Date of Discharge: Aug 22, 2018 Admitting Diagnosis: neuro symptoms Final Diagnosis Blurred vision, bilateral. Headaches. elevated CSF pressure, concern for MS or demylinating disease Dizziness. Right UE numbness. hand wakness headaches. tremors. HLD. GERD. Anxiety. Carotid A stenosis. Obesity. BMI 32 No evidence of acute CVA this time. Brief Hospital Course Allergies Allergies Coded Allergies Type Severity Reaction Last Updated Verified morphine Allergy Severe Shortness of Air 01/25/16 Yes Vital Signs Vital Signs Date Time Temp Pulse Resp B/P (MAP) Pulse Ox O2 Delivery O2 Flow Rate FiO2 08/22/18 07:00 98.1 69 16 113/68 (83) 99 Room Air 98.1 Lab Results Laboratory Tests Test 08/20/18 19:50 08/21/18 15:40 08/22/18 03:30 White Blood Count 7.5 x10^3/uL (4.0-11.0) Red Blood Count 4.38 x10^6/uL (3.50-5.40) Hemoglobin 12.5 g/dL (12.0-15.5) Hematocrit 37.7 % (36.0-47.0) Mean Corpuscular Volume 86 fL (79-100) Mean Corpuscular Hemoglobin 29 pg (25-35) Mean Corpuscular Hemoglobin Concent 33 g/dL (31-37) Red Cell Distribution Width 14.4 % (11.5-14.5) Platelet Count 304 x10^3/uL (140-400) Neutrophils (%) (Auto) 49 % (31-73) Lymphocytes (%) (Auto) 41 % (24-48) Monocytes (%) (Auto) 6 % (0-9) Eosinophils (%) (Auto) 3 % (0-3) Basophils (%) (Auto) 1 % (0-3) Neutrophils # (Auto) 3.7 x10^3uL (1.8-7.7) Lymphocytes # (Auto) 3.1 x10^3/uL (1.0-4.8) Monocytes # (Auto) 0.5 x10^3/uL (0.0-1.1) Eosinophils # (Auto) 0.2 x10^3/uL (0.0-0.7) Basophils # (Auto) 0.0 x10^3/uL (0.0-0.2) Vitamin B12 Level 406 pg/mL (247-911) CSF Tube Number 3 CSF Volume 2.0 CSF Color Colorless CSF Clarity Clear CSF WBC 2 /cmm (Not Established) CSF RBC 1 /cmm (Not Established) CSF Glucose 84 mg/dL (37-70) CSF Total Protein 52.4 mg/dL (15.0-45.0) Sodium Level 141 mmol/L (136-145) Potassium Level 3.7 mmol/L (3.5-5.1) Chloride Level 103 mmol/L (98-107) Carbon Dioxide Level 29 mmol/L (21-32) Anion Gap 9 (6-14) Blood Urea Nitrogen 11 mg/dL (7-20) Creatinine 1.0 mg/dL (0.6-1.0) Estimated GFR (Cockcroft-Gault) 61.7 Glucose Level 110 mg/dL (70-99) Calcium Level 9.2 mg/dL (8.5-10.1) Laboratory Tests Test 08/21/18 15:40 08/22/18 03:30 CSF Tube Number 3 CSF Volume 2.0 CSF Color Colorless CSF Clarity Clear CSF WBC 2 /cmm (Not Established) CSF RBC 1 /cmm (Not Established) CSF Glucose 84 mg/dL (37-70) CSF Total Protein 52.4 mg/dL (15.0-45.0) Sodium Level 141 mmol/L (136-145) Potassium Level 3.7 mmol/L (3.5-5.1) Chloride Level 103 mmol/L (98-107) Carbon Dioxide Level 29 mmol/L (21-32) Anion Gap 9 (6-14) Blood Urea Nitrogen 11 mg/dL (7-20) Creatinine 1.0 mg/dL (0.6-1.0) Estimated GFR (Cockcroft-Gault) 61.7 Glucose Level 110 mg/dL (70-99) Calcium Level 9.2 mg/dL (8.5-10.1) Brief Hospital Course Ms. Cline is a 38 old admit fro right hand weakness, headache, blurry vision, had been to optho x2, no eye problems, neuro in origin Neuro consult, Dr Alberto MRI brain, could not exclude demyelinating disease, some small lesions that could be artifact patient is concerne about MS, has strong family history, could be early MS sx has eye pain, has muscle cramps, asked for flexeril, and hydrocodone need Neuro f.u, she plans to f.u at [facility] Discharge Information Condition at Discharge: Improved Follow Up: Weeks Disposition/Orders: D/C to Home Scheduled Duloxetine Hcl (Duloxetine Hcl) 30 Mg Capsule.dr, 30 MG PO DAILY, (Reported) Entered as Reported by: WILL OLSEN on 01/24/18152 Last Taken: Unknown Dose on 08/18/18899 Last Action: Last Taken Edited on 08/18/182236 by WILL OLSEN Methylphenidate Hcl (Concerta) 18 Mg Tab.er.24, 1 TAB PO DAILY for stimulant, # 30 (Reported) Entered as Reported by: WILL OLSEN on 08/18/182236 Last Taken: Unknown Dose on 08/18/18899 Last Action: New Order on 08/18/182236 by WILL OLSEN [place]-3 Fatty Acids/Fish Oil (Fish Oil 1,000 Mg Capsule) 1 Each Capsule, 1 EACH PO DAILY for cholesterol, (Reported) Entered as Reported by: WILL OLSEN on 08/18/182236 Last Taken: Unknown Dose on 08/18/18899 Last Action: New Order on 08/18/182236 by WILL OLSEN Orphenadrine Citrate (Orphenadrine Citrate) 100 Mg Tablet.er, 1 TAB PO BID for muscle spasms, #60 Ref 1 (Reported) Entered as Reported by: WILL OLSEN on 08/18/182236 Last Taken: UNKNOWN on Unknown Date & Time Last Action: New Order on 2236 by WILL OLSEN Pantoprazole Sodium (Protonix) 40 Mg Tablet.dr, 1 TAB PO DAILY, #30 Ref 5 ( Reported) Entered as Reported by: TOMAS CONTRERAS on 06/15/172026 Last Taken: Unknown Dose on 08/18/18899 Last Action: Last Taken Edited on 08/18/182236 by WILL OLSEN Polyethylene Glycol 3350 (Miralax) 17 Gm Powd.pack, 17 GM PO BID, #100 Prescribed by: ALISHA MULLINS on 01/26/16 1107 Last Taken: Unknown Dose on 06/20/18 Last Action: Last Taken Edited on 08/18 by WILL OLSEN Simvastatin (Zocor) 20 Mg Tablet, 1 TAB PO QHS, #90 Ref 1 (Reported) Entered as Reported by: LUDMILA TORREZ on 01/25/181515 Last Taken: Unknown Dose on 06/20/18 Last Action: Last Taken Edited on 08/18 by WILL OLSEN Trazodone Hcl (Trazodone Hcl) 50 Mg Tablet, 1 TAB PO QHS, #30 Ref 2 Prescribed by: ALISHA MULLINS on 01/26/16 1107 Last Taken: Unknown Dose on 08/17/18 2100 Last Action: Last Taken Edited on 08/18/182236 by WILL OLSEN Scheduled PRN Hydrocodone Bit/Acetaminophen (Hydrocodone-Apap 7.5-325 ) 1 Each Tablet, 1 TAB PO PRN Q4HRS PRN for PAIN, #50 Prescribed by: ALISHA MULLINS on 09/02/17 1122 Last Taken: Unknown Dose on 08/18/18 Last Action: Last Taken Edited on 08/18 by WILL OLSEN Discontinued Medications Aspirin (Aspirin Ec) 325 Mg Tablet., 1 TAB PO DAILY, #30 Ref 5 (Reported) Entered as Reported by: LUDMILA TORREZ on 01/25/188 Last Action: Discontinued on 08/18/182236 by WILL OLSEN Patient Instructions Patient Instructions > 30 min' face to face >20 min coor of ALISHA Sheldon MD Aug 22, 2018 11:35
[2018-08-22] MEDS ORDERED: CYCL10TA2 PO (12:51)
[2018-08-22] MEDS ORDERED: HYDR-2765 PO (12:51)
--- NOTE | 2018-08-22 14:00 | NUR ---
Called in prescriptions to [facility] pharmacy in [place] for topimax 25 mg PO BID, Diamox 125 mg PO TID for 30 days with no refills per Dr. Alberto. Spoke with Nishant at the pharmacy. Will continue to monitor.
--- NOTE | 2018-08-22 14:15 | NUR ---
Discharge Note: FRANKY ISIDRO [address] [place] [address] Discharge instructions and discharge home medications reviewed with Patient and a copy given. All questions have been answered and understanding verbalized. The following instructions and handouts were given: f/u with PCP within one week, F/U with Dr. Alberto within two weeks. Discontinued lines and drains: Peripheral IV intact. Patient discharged to Home or Self Care with Family Member via [facility].
--- NOTE | 2018-08-22 17:26 | PDOC ---
PROGRESS NOTES Assessment Assessment Blurred vision, bilateral. Headaches. IIP. Dizziness. Right UE numbness. headaches. tremors. HLD. GERD. Anxiety. Carotid A stenosis. Obesity. No evidence of acute CVA this time. RECOMMENDATIONS/PLAN: On Neurontin 100 mg tid, plan to taper off, blurred vision. Zocor HS. Topamax 25 mg bid. Diamox 125 mg tid. Treat medical diseases. Weight reduction. FU with PCP. FU with Ophthalmology. FU with Dr. Alberto in Neurology Clinic in 1-2 weeks. LP on 08/21/18 CSF opening pressure was 27 and closing pressure was 19. CSF glucose 84, protein 52.4. WBC 2. MRI w/wo contrast on 08/20/18: Negative. HCT on 01/23: Negative. Brain MRI w/o contrast on 01/24: Negative. PAST MEDICAL HISTORY Past Medical History Cardiovascular: No pertinent hx Pulmonary: No pertinent hx GI: GERD Heme/Onc: No pertinent hx Hepatobiliary: No pertinent hx Psych: Anxiety Rheumatologic: No pertinent hx Infectious disease: No pertinent hx ENT: No pertinent hx Renal/: No pertinent hx Endocrine: No pertinent hx Dermatology: No pertinent hx PAST SURGICAL HISTORY Cholecystectomy, Appendectomy, Tonsillectomy, Hysterectomy FAMILY HISTORY Coronary Artery Disease (father- PA at age 35, multiple stents), Hypertension SOCIAL HISTORY Social History Smoke: No ALCOHOL: none Drugs: None Lives: with Family ALLERGIES: Morphine (Verified Allergy, Severe, Shortness of Air, 01/25/16) MEDICATIONS: Refer to MAR REVIEW OF SYSTEMS: Constitutional: No malnutrition, weight loss, cachexia. Head: No traumatic brain or head injury. Skin: No edema, or rash. Ear: No infection, tinnitus. Eyes: No vision loss or color blindness. Nose: No bleeding or purulent discharges. Hearing: No hearing decrease. Neck: No injury. Breast: No history of cancer, masses,or discharges. Cardiac: HLD. Pulmonary: No pneumonia, COPD. GI: No GI ulcer, GI bleeding. Urinary/genital: UTI. Endocrinologic: Obesity. Skeletomuscular: No muscular atrophy, deformity. Neurological: see HP. Psychiatric: Denies drug use/abuse. Otherwise, not [id number] review of systems. PHYSICAL EXAMINATION: General appearance is in anxiety. HEENT: Normocephalic and nontraumatic. Eyes, nose, ears, and throat are unremarkable. Neck is supple. No lymphadenopathy. No crepitus. Cardiovascular: S1, S2, regular rate and rhythm. Pulmonary: Clear to auscultation bilaterally. Abdomen: Bowel sounds are positive. Abdomen is soft, nontender, and nondistended. Extremities: No rash, lesions, or edema. No restriction of range of motion NEUROLOGICAL EXAMINATION: Alert Oriented to time, place and person. PERRL. EOMI. CN: no focal findings. Muscle tone: within normal. Muscle strength: 5 DTR: 2 Plantar reflex: Flexor response bilaterally Gait: not examined in bed. Sensory exam: no abnormal findings. No cerebellar signs elicited. F-T-N test accurate. Objective Objective Vital Signs Date Time Temp Pulse Resp B/P (MAP) Pulse Ox O2 Delivery O2 Flow Rate FiO2 08/22/18 11:00 98.1 63 16 105/57 (73) 99 Room Air 98.1 Intake and Output 08/22/18 07:00 Intake Total 1790 ml Balance 1790 ml Intake Oral 1790 ml # Voids 6 Vitals Signs Vitals VS - Last 72 Hours, by Label Date Time Temp Pulse Resp B/P (MAP) Pulse Ox O2 Delivery O2 Flow Rate FiO2 08/22/18 11:00 98.1 63 16 105/57 (73) 99 Room Air 98.1 08/22/18 08:00 Room Air 08/22/18 07:00 98.1 69 16 113/68 (83) 99 Room Air 98.1 08/22/18 03:28 18 96 Room Air 08/22/18 03:12 97.9 70 16 104/57 (73) 96 Room Air 97.9 08/21/18 23:16 98.3 68 17 122/68 (86) 99 Room Air 98.3 08/21/18 21:44 18 97 Room Air 08/21/18 20:44 18 97 Room Air 08/21/18 20:00 Room Air 08/21/18 19:46 98.7 90 20 139/83 (101) 97 Room Air 98.7 08/21/18 16:00 97.5 76 18 127/75 (92) 94 Room Air 97.5 08/21/18 12:06 16 Room Air 08/21/18 11:00 97.7 82 18 123/78 (93) 98 Room Air 97.7 08/21/18 08:41 16 Room Air 08/21/18 08:11 16 Room Air 08/21/18 08:00 Room Air 08/21/18 07:00 97.5 74 18 146/90 (108) 100 Room Air 97.5 Laboratory Laboratory Laboratory Tests Test 08/22/18 03:30 Sodium Level 141 mmol/L (136-145) Potassium Level 3.7 mmol/L (3.5-5.1) Chloride Level 103 mmol/L (98-107) Carbon Dioxide Level 29 mmol/L (21-32) Anion Gap 9 (6-14) Blood Urea Nitrogen 11 mg/dL (7-20) Creatinine 1.0 mg/dL (0.6-1.0) Estimated GFR (Cockcroft-Gault) 61.7 Glucose Level 110 mg/dL (70-99) Calcium Level 9.2 mg/dL (8.5-10.1) Medication Medications Current Medications Acetazolamide (Diamox) 125 mg TID PO Last administered on 08/22/18at 14:07; Start 08/21/18 at 22:00; Stop 08/22/18 at 15:55; Status DC Topiramate (Topamax) 25 mg BID PO Last administered on 08/22/18at 08:58; Start 08/21/18 at 21:00; Stop 08/22/18 at 15:55; Status DC Comment Review of Relevant I have reviewed the following items lolis (where applicable) has been applied. CONNIE ALBERTO MD Aug 22, 2018 17:26
[2018-08-23 18:12] LABS: ANA INTERP Negative (.)
[2018-08-24 12:22] LABS: HERPES SIMPLEX TYPE 1 Negative (Negative); HERPES SIMPLEX TYPE 2 Negative (Negative)
[2018-08-24 13:19] LABS: ALBUMIN,SERUM 3.8 g/dL (3.5-5.5); CSF IGG INDEX 0.6 (0.0-0.7); WEST NILE IGG CSF Negative (Negative); WEST NILE IGM CSF Negative (Negative)
== END 2018-08-22 13:00 | disposition home or self-care (01) | DRG 60 ==
LOC: ER 17:43 → 6 SOUTH 19:43
PROVIDERS: ADMIT Internal Medicine; ATTEND Internal Medicine
PROC: 009U3ZX Drainage of Spinal Canal, Percutaneous Approach, Diagnostic (ICD-10-PCS; principal; 2018-08-21)
PROC: B01B1ZZ Fluoroscopy of Spinal Cord using Low Osmolar Contrast (ICD-10-PCS; 2018-08-21)
DX: G35 Multiple sclerosis (principal); H53.8 Other visual disturbances; R51 Headache; Z68.32 Body mass index [BMI] 32.0-32.9, adult; E78.5 Hyperlipidemia, unspecified; E66.9 Obesity, unspecified; F41.0 Panic disorder [episodic paroxysmal anxiety]; K21.9 Gastro-esophageal reflux disease without esophagitis; Z88.8 Allergy status to other drugs, medicaments and biological substances; F32.9 Major depressive disorder, single episode, unspecified; I65.29 Occlusion and stenosis of unspecified carotid artery; M54.5 Low back pain; M47.812 Spondylosis without myelopathy or radiculopathy, cervical region; N28.9 Disorder of kidney and ureter, unspecified; Z79.899 Other long term (current) drug therapy; Z82.49 Family history of ischemic heart disease and other diseases of the circulatory system; Z90.711 Acquired absence of uterus with remaining cervical stump; Z90.49 Acquired absence of other specified parts of digestive tract; G62.9 Polyneuropathy, unspecified
CPT/HCPCS: 36415; 62270; 70450; 70553; 71046; 80048; 80053; 81001; 81025; 82607; 82787; 82945; 84157; 84443; 84484; 85007; 85025; 85610; 85651; 86038; 86140; 86788; 86789; 87071; 87075; 87529; 89051; 93005; 96374; A9585; J0780; J1100; J1885; J3010; J7120; Q0163; 99285-25